=== PATIENT | female | born 1950 | race Caucasian/White ===

== ENCOUNTER → 2016-08-02 | Outpatient (CLI) | payer OTHER, MEDICARE ==
[~2016-08-02] MED LIST: CALC-279 PO; CALC500C70 PO; CHOL100010 PO; CHOL2000 PO; CLR10 PO; FLUO20CA35 PO; FLUO40CA8 PO; FLUT0.15 NAE; LEVO137T3 PO; LRS20 PO; MIRA100T PO; MISCCAP80 PO; MULT-884 PO; NRN800 PO; OMEGCAP2 PO; PRMVC PV; VSC/5 PO; WLLSR/150 PO
--- NOTE | 2016-08-03 10:57 | MAMMOGRAPHY REPORT ---
BILATERAL DIGITAL SCREENING MAMMOGRAM WITH CAD: 08/02/2016 CLINICAL HISTORY: Routine screening. Patient has no complaints. TECHNIQUE: Bilateral CC and MLO views were obtained. Current study was also evaluated with a Comput er Aided Detection (CAD) system. COMPARISON: Comparison is made to exams dated: 07/18/2015 mammogram - [facility], 04/12/2013 mammogram, 05/14/2014 mammogram - [facility], 03/24/2011 mammogram, 2009 mammogram, and 02/13/2009. BREAST COMPOSITION: There are scattered areas of fibroglandular density in both breasts. FINDINGS: The parenchymal pattern is unchanged. No developing mass, architectural distortion or clu ster of suspicious microcalcifications is seen in either breast. IMPRESSION: ACR BI-RADS CATEGORY 2: BENIGN There is no mammographic evidence of malignancy. A 1 year screening mammogram is recommended. The p atient will receive written notification of the results. Approximately 10% of breast cancers are not detected with mammography. A negative mammographic repor t should not delay biopsy if a clinically suggestive mass is present. Margarita Lucero M.D. ay/:08/02/2016 16:09:39 Die Mechanic: Mavis OCONNELL(Allyn)(M), [facility] letter sent: Normal 1/2 BI-RADS Code: ACR BI-RADS Category 2: Benign
== END | disposition home or self-care (01) ==
LOC: C.MAMM 09:46
PROVIDERS: ATTEND Obstetrics & Gynecology
DX: Z12.31 Encounter for screening mammogram for malignant neoplasm of breast (principal)

== ENCOUNTER 2016-12-02 09:50 | Emergency (ER) | payer OTHER, MEDICARE ==
[~2016-12-02] VITALS: Ht 170.2 cm; Wt 78.7 kg
[~2016-12-02 09:50] MED LIST changes: -CALC500C70 PO; -CHOL2000 PO; -FLUO40CA8 PO; -MIRA100T PO
[2016-12-02 10:42] VITALS: Ht 170.2 cm; Wt 78.7 kg
[2016-12-02 10:43] VITALS: O2SAT 96
--- NOTE | 2016-12-02 10:46 | DIAGNOSTIC IMAGING REPORT ---
CHEST ONE VIEW PORTABLE CLINICAL HISTORY: Dizziness, shortness of breath COMPARISON STUDY: 12/03/2015 FINDINGS: The cardiac and mediastinal contours are normal. There is no evidence of focal pulmonary consolidation. There is no evidence of failure. No pleural effusions are visualized.[ There is scattered granulomatous calcifications present. IMPRESSION: No active disease in the chest. Electronically signed by: Miki Cervantes M.D. 12/02/2016 10:45 AM Dictated Date/Time: 12/02/2016 10:45 AM
[2016-12-02] MEDS ORDERED: MIRA100T PO (10:50)
[2016-12-02] MEDS ORDERED: FLUO40CA8 PO (10:50)
[2016-12-02] MEDS ORDERED: CALC500C70 PO (10:50)
[2016-12-02] MEDS ORDERED: CHOL2000 PO (10:50)
[2016-12-02 10:56] LABS: URINE APPEARANCE CLEAR (CLEAR); URINE BILIRUBIN NEG (NEG); URINE COLOR YELLOW; URINE NITRITE NEG (NEG); URINE SPECIFIC GRAVITY 1.013 (1.000-1.030); UROBILINOGEN NEG (NEG)
[2016-12-02 11:04] LABS: MANUAL MICROSCOPIC REQUIRED? NO; REVIEW REQ? NO
[2016-12-02 11:22] LABS: BASO % 0.4 %; BASO ABS # 0.02 K/uL (0-0.2); COMPLETE YES; EOS % 1.3 %; HEMATOCRIT 39.6 % (37-47); IG% 0.2 %; LYMPH % 19.9 %; LYMPH ABS # 1.11 K/uL (1.2-3.4); MEAN CELL VOLUME 90.2 fL (80-100); MEAN CORPUSCULAR HEMOGLOBIN 31.7 pg (25-34); MEAN CORPUSCULAR HGB CONC 35.1 g/dl (32-36); MEAN PLATELET VOLUME 10.2 fL (7.4-10.4); NEUT % 73.2 %; PLATELET COUNT 210 K/uL (130-400); RED BLOOD COUNT 4.39 M/uL (4.2-5.4); WHITE BLOOD COUNT 5.58 K/uL (4.8-10.8)
[2016-12-02 11:29] LABS: ALT/SGPT 26 U/L (12-78); BLOOD UREA NITROGEN 18 mg/dl (7-18); BUN/CREATININE RATIO 16.4 (10-20); CALCIUM 8.9 mg/dl (8.5-10.1); CARBON DIOXIDE 26 mmol/L (21-32); CHLORIDE 105 mmol/L (98-107); GLUCOSE 82 mg/dl (70-99); SODIUM 139 mmol/L (136-145)
[2016-12-02 11:34] LABS: ALB/GLOB RATIO 1.1 (0.9-2); ALKALINE PHOSPHATASE 61 U/L (45-117); AST/SGOT 23 U/L (15-37); CKMB/CK RATIO 1.3 (0-3.0)
[2016-12-02] MEDS ORDERED: ASPIRIN 81 MG CHEW PO STA (12:58)
[2016-12-02 16:23] VITALS: BP 148/92; PULSE 70; TEMP 36.8; O2SAT 97
--- NOTE | 2016-12-02 16:32 | EMERGENCY ROOM VISIT NOTE ---
History Report prepared by Dee Dee: Manjinder Street Under the Supervision of: Dr. Miko Meza M.D. First contact with patient: 10:07 Chief Complaint: SHORTNESS OF BREATH Stated Complaint: DIZZY,SOB DURING WATER WALKING Nursing Triage Summary: Patient states at 8:45 she was in the pool exercising and became SOB and dizzy, "its a hot room with a warm pool". "It feels sore under my breast bone". Left side of face feel numb and left hand shakes. History of Present Illness The patient is a 66 year old female who presents to the Emergency Room with complaints of resolving shortness of breath that began prior to arrival. She rates her pain as a 2/10 in severity. The patient states that she was doing an exercise in a pool when she started to experience dizziness, discomfort in her center chest, and shortness of breath. She reports that the pool and room both felt warm. The patient states that she is still experiencing dyspnea and the discomfort in her chest. 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 The patient states that she has a history of thyroid cancer, clostridium difficile, bowel obstruction, and peritonitis. She reports that her small intestine ruptured due to her adhesions strangling her intestine from her hysterectomy. The patient also reports a history of ileostomy, which she states was reversed, and lymphedema, which she wears compression socks for. She states that she did recently travel from [place] on November 15 and reports that she had the Heimlich maneuver performed on her in [place] 2 weeks ago due to an episode of choking. The patient denies heart history, arm pain, jaw pain, LOC, headache , fevers, chills, diaphoresis, visual changes, neck pain, nausea, vomiting, abdominal pain, back pain, melena, hematochezia, urinary symptoms, numbness, weakness, lymphadenopathy, rash, or other complaints. Source of History: patient Onset: prior to arrival Position: other (global) Symptom Intensity: 2/10 Timing: other (resolving) Associated Symptoms: + chest pain Review of Systems See HPI for pertinent positives and negatives. A total of ten systems were reviewed and were otherwise negative. Past Medical & Surgical Medical Problems: (1) Abdominal adhesions (2) History of thyroid cancer (3) Perforated abdominal viscus (4) Recurrent Clostridium difficile diarrhea (5) SBO (small bowel obstruction) Surgical Problems: (1) History of ileostomy (2) S/P ileostomy (3) S/P small bowel resection Family History Heart disease Hypertension Lung disease Social History Smoking Status: Never Smoker Alcohol Use: none Drug Use: none Marital Status: Housing Status: lives alone Occupation Status: retired Current/Historical Medications Scheduled Baclofen (Baclofen), 20 MG PO TID Bupropion Hcl (Wellbutrin Sr), 150 MG PO BID Calcium/Vitamin D (Os-Diego 500 Plus D), 1 TAB PO DAILY Cholecalciferol (Vitamin D3), 1 CAP PO DAILY Estrogens, Conjugated (Premarin), 1 APPLN PV 3 X WEEKLY Fluoxetine (Prozac), 40 MG PO DAILY Fluticasone Propionate (Nasal) (Flonase Allergy Relief), 1 SPRAY BRITTANI DAILY Gabapentin (Gabapentin), 800 MG PO TID Levothyroxine Sodium (Levothyroxine Sodium), 137 MCG PO DAILY Loratadine (Claritin), 10 MG PO DAILY Mirabegron (Myrbetriq Er), 25 MG PO DAILY Multiple Vitamin (Multi Vitamin Daily), 1 TAB PO DAILY Tenstrike-3 Fatty Acids (Fish Oil), 1,200 MG PO BID Probiotic Product (Probiotic), 1 CAP PO DAILY Allergies Coded Allergies: Codeine (Verified Allergy, Unknown, 12/02/16) Hydromorphone (Unverified Allergy, Unknown, hallucinations, 12/02/16) Meperidine (Verified Allergy, Unknown, 12/02/16) Morphine (Unverified Allergy, Unknown, resp depression, 12/02/16) Physical Exam Vital Signs Date Time Temp Pulse Resp B/P (MAP) Pulse Ox O2 Delivery O2 Flow Rate FiO2 12/02/16 16:23 36.8 70 20 148/92 97 12/02/16 16:23 148/92 12/02/16 14:03 70 20 151/54 97 Room Air 12/02/16 13:16 74 16 145/74 100 Room Air 12/02/16 11:39 71 16 152/79 97 Room Air 12/02/16 10:43 96 Room Air 12/02/16 10:43 96 Room Air 12/02/16 10:02 97 Room Air 12/02/16 09:56 36.8 80 18 145/86 97 Room Air Physical Exam GENERAL: Awake, alert, well-appearing, in no distress HENT: Normocephalic, atraumatic. Oropharynx unremarkable. EYES: Normal conjunctiva. Sclera non-icteric. NECK: Supple. No nuchal rigidity. FROM. No JVD. RESPIRATORY: Clear to auscultation. CARDIAC: Regular rate, normal rhythm. Extremities warm and well perfused. Pulses equal. ABDOMEN: Soft, non-distended. No tenderness to palpation. No rebound or guarding. No masses. RECTAL: Deferred. MUSCULOSKELETAL: Left anterior chest wall tenderness. The back is symmetrical on inspection without obvious abnormality. There is no CVA tenderness to palpation. No joint edema. LOWER EXTREMITIES: Calves are equal size bilaterally and non-tender. No edema. No discoloration. NEURO: Normal sensorium. No sensory or motor deficits noted. SKIN: No rash or jaundice noted. Medical Decision & Procedures ER Provider Diagnostic Interpretation: X-ray: Per my interpretation, radiologist review. CHEST ONE VIEW PORTABLE CLINICAL HISTORY: Dizziness, shortness of breath COMPARISON STUDY: 12/03/2015 FINDINGS: The cardiac and mediastinal contours are normal. There is no evidence of focal pulmonary consolidation. There is no evidence of failure. No pleural effusions are visualized.[ There is scattered granulomatous calcifications present. IMPRESSION: No active disease in the chest. Electronically signed by: Miki Cervantes M.D. 12/02/2016 10:45 AM Dictated Date/Time: 12/02/2016 10:45 AM Laboratory Results 12/02/16 10:35 Red Blood Count 4.39, Mean Corpuscular Volume 90.2, Mean Corpuscular Hemoglobin 31.7, Mean Corpuscular Hemoglobin Concent 35.1, Mean Platelet Volume 10.2, Neutrophils (%) (Auto) 73.2, Lymphocytes (%) (Auto) 19.9, Monocytes (%) (Auto) 5.0, Eosinophils (%) (Auto) 1.3, Basophils (%) (Auto) 0.4, Neutrophils # (Auto) 4.09, Lymphocytes # (Auto) 1.11, Monocytes # (Auto) 0.28, Eosinophils # (Auto) 0.07, Basophils # (Auto) 0.02 12/02/16 10:35 Test 12/02/16 00:00 12/02/16 10:35 12/02/16 10:44 12/02/16 14:00 Urine Color YELLOW Urine Appearance CLEAR (CLEAR) Urine pH 8.0 (4.5-7.5) Urine Specific [place] 1.013 (1.000-1.030) Urine Protein NEG (NEG) Urine Glucose (UA) NEG (NEG) Urine Ketones NEG (NEG) Urine Occult Blood NEG (NEG) Urine Nitrite NEG (NEG) Urine Bilirubin NEG (NEG) Urine Urobilinogen NEG (NEG) Urine Leukocyte Esterase NEG (NEG) White Blood Count 5.58 K/uL (4.8-10.8) Red Blood Count 4.39 M/uL (4.2-5.4) Hemoglobin 13.9 g/dL (12.0-16.0) Hematocrit 39.6 % (37-47) Mean Corpuscular Volume 90.2 fL (80-100) Mean Corpuscular Hemoglobin 31.7 pg (25-34) Mean Corpuscular Hemoglobin Concent 35.1 g/dl (32-36) Platelet Count 210 K/uL (130-400) Mean Platelet Volume 10.2 fL (7.4-10.4) Neutrophils (%) (Auto) 73.2 % Lymphocytes (%) (Auto) 19.9 % Monocytes (%) (Auto) 5.0 % Eosinophils (%) (Auto) 1.3 % Basophils (%) (Auto) 0.4 % Neutrophils # (Auto) 4.09 K/uL (1.4-6.5) Lymphocytes # (Auto) 1.11 K/uL (1.2-3.4) Monocytes # (Auto) 0.28 K/uL (0.11-0.59) Eosinophils # (Auto) 0.07 K/uL (0-0.5) Basophils # (Auto) 0.02 K/uL (0-0.2) RDW Standard Deviation 40.4 fL (36.4-46.3) RDW Coefficient of Variation 12.2 % (11.5-14.5) Immature Granulocyte % (Auto) 0.2 % Immature Granulocyte # (Auto) 0.01 K/uL (0.00-0.02) Anion Gap 8.0 mmol/L (3-11) Est Creatinine Clear Calc Drug Dose 52.9 ml/min Estimated GFR () 59.7 Estimated GFR (Non- 51.5 BUN/Creatinine Ratio 16.4 (10-20) Calcium Level 8.9 mg/dl (8.5-10.1) Total Bilirubin 0.9 mg/dl (0.2-1) Aspartate Amino Transf (AST/SGOT) 23 U/L (15-37) Alanine Aminotransferase (ALT/SGPT) 26 U/L (12-78) Alkaline Phosphatase 61 U/L (45-117) Total Creatine Kinase 71 U/L (26-192) Creatine Kinase MB 0.9 ng/ml (0.5-3.6) Creatine Kinase MB Ratio 1.3 (0-3.0) Total Protein 7.1 gm/dl (6.4-8.2) Albumin 3.7 gm/dl (3.4-5.0) Globulin 3.4 gm/dl (2.5-4.0) Albumin/Globulin Ratio 1.1 (0.9-2) Bedside D-Dimer 151 ng/mlFEU (0-450) Troponin I < 0.015 ng/ml (0-0.045) Laboratory results reviewed by me Medications Administered Medications (Trade) Dose Ordered Sig/Sanjeev Route Start Time Stop Time Status Last Admin Dose Admin Aspirin (Aspirin Chew) 324 mg NOW STAT PO 12/02/16 12:58 12/02/16 12:59 DC 12/02/16 13:02 324 MG ECG Indication: SOB/dyspnea Rate (beats per minute): 74 Rhythm: normal sinus Findings: no acute ischemic change, no ectopy ED Course 1008: The patient was evaluated in room A03. A complete history and physical exam was performed. 1239: I reevaluated the patient and she is resting comfortably. 1258: Aspirin 324 mg PO. 1555: The patient passed a stress test. Discussed the case with Dr. Devine. 1615: Patient reassessed. She is asymptomatic. Discharge instructions outlined. Medical Decision Medication Reconciliation: I attest that I have personally reviewed the patient' s current medication list Blood pressure screening: Patient was found to have an elevated blood pressure and was referred to their primary doctor for recheck and further treatment. Triage Nursing notes reviewed. The patient's presentation and history were concerning for shortness of breath and chest symptoms. Etiologies such as cardiac ischemia, aortic dissection, pulmonary embolism, pneumonia, pneumothorax, musculoskeletal, infections, gastrointestinal, as well as others were entertained. The patient was evaluated. Clinically she was doing well. Her ECG was nonischemic. The patient's CBC, chemistry panel, urinalysis, cardiac markers, d -dimer, and LFTs were unremarkable. The patient's chest imaging was negative. I discussed the case with cardiology, Dr. Devine. A second troponin was done and was negative. The patient was taken to stress testing and she passed this without any issues. The patient was reassessed. She was asymptomatic. I discussed conservative management and close outpatient follow-up with her. The patient and significant other were in agreement. The patient was discharged in stable condition. By the evaluation outlined above other emergent etiologies such as those listed in the differential, as well as others, were deemed relatively unlikely. The patient was educated about the findings as listed above. All questions were answered and the patient was pleased with the treatment. Return instructions were outlined and the patient was discharged in stable condition. The patient was referred to her PCP for follow-up for a recheck of the current condition. Impression Primary Impression: Substernal chest pain Additional Impression: Shortness of breath Scribe Attestation The scribe's documentation has been prepared under my direction and personally reviewed by me in its entirety. I confirm that the note above accurately reflects all work, treatment, procedures, and medical decision making performed by me. Departure Information Dispostion Home / Self-Care Referrals Saranya Anderson PA-C (PCP) Patient Instructions My [facility] Problem Qualifiers
--- NOTE | 2016-12-02 18:06 | EXERCISE STRESS ECHO ---
*NOTICE TO RECEIVING CONSTITUTION PARTY AGENCY This information is strictly Confidential and protected under [place] law. [place] law prohibits you from making any further disclosure of this information unless further disclosure is expressly permitted by the written consent of the person to whom it pertains or is authorized by law. A general authorization for the release of medical or other information is not sufficient for this purpose. Hospital accepts no responsibility if the information is made available to any other person, INCLUDING THE PATIENT. Interpretation Summary * Name: ALCON Jordan Study Date: 12/02/2016 02:11 PM BP: 157/75 mmHg * Patient Location: [facility] HR: 81 * : 1950 (M/d/yyyy) Gender: Female Height: 67 in * Age: 66 yrs Ethnicity: CA Weight: 174 lb * Ordering Physician: Miko Meza * Referring Physician: Self, Referred * Performed By: Madeline Jaeger RDCS * * Reason For Study: Chest pain * BSA: 1.9 m2 * -- Conclusions -- * Stress Echo: * 1. Negative stress echo for ischemia at 90 % MPHR. * 2. Negative exercise ECG for ischemia at 90 % MPHR. * 3. Appropriate blood pressure response to exercise. * 4. No arrhythmia. * 5. Study terminated due to target heart rate achieved. No chest pain reported. * 6. Good exercise tolerance. * Echo: * 1. Normal left ventricular size and systolic function. EF 55-60 %. No regional wall motion abnormalities. No left ventricular hypertrophy. Type 1 diastolic dysfunction. * 2. No significant valvular abnormalities. * 3. Normal estimated right ventricular systolic pressure; 27 mmHg. Procedure Details * ECHOEX, CPT #[id number] * ECHO DOPPLER, CPT #[id number] * ECHO COLOR FLOW, CPT #[id number] Left Ventricle * The left ventricle is normal in size. * There is normal left ventricular wall thickness. * Left ventricular systolic function is normal. * The left ventricular ejection fraction increases normally with stress. The left ventricular end-systolic cavity size reduces post-stress (normal response). The left ventricular wall motion with stress is normal. * Resting wall motion: Normal. Stress wall motion: Appropriate increase in Left ventricular systolic function and decrease in cavity size. No stress induced segmental wall motion abnormalities. Right Ventricle * The right ventricle is normal in size and function. * The right ventricular systolic function is normal as assessed by tricuspid annular plane systolic excursion (TAPSE) (normal >1.5 cm). Atria * The left atrial size is normal. * Right atrial size is normal. * There is no evidence of atrial septal defect, but resolution does not allow assessment for a patent foramen ovale. Mitral Valve * The mitral valve leaflets appear normal. There is no evidence of stenosis, fluttering, or prolapse. * There is trace mitral regurgitation. Tricuspid Valve * The tricuspid valve is not well visualized, but is grossly normal. * There is no tricuspid stenosis. * There is trace tricuspid regurgitation. Aortic Valve * The aortic valve is normal in structure and function. * The aortic valve is trileaflet. * No hemodynamically significant valvular aortic stenosis. * No aortic regurgitation is present. Pulmonic Valve * The pulmonic valve is not well seen, but is grossly normal. * Trace pulmonic valvular regurgitation. Great Vessels * The aortic root is normal size. * Ascending aorta of normal dimension * Normal pulmonary venous flow pattern. Pericardium * There is no pericardial effusion. Stress Parameters * NSR at 72 bpm. * Stress ECG: No ST changes. No arrhythmias. * No arrhythmia were noted with stress. * The stress portion of this study was personally supervised by the undersigned interpreting physician. * Rest heart rate was '81' BPM. * Rest blood pressure was '157/75' * Maximum heart rate achieved was 137 bpm. * Maximum heart rate was 90 % of maximum age-predicted heart rate. * Maximum blood pressure was '170/70' * Total exercise time was '9:00' * Maximum exercise MET level achieved was '10.10' METS * Maximum treadmill speed was '3.40' miles per hour. * Maximum treadmill elevation was '14.00'% grade. * Exercise was terminated due to 'achieving target heart rate' * Normal blood pressure response to exercise. Left Ventricular Diastolic Function * Grade I diastolic dysfunction, (abnormal relaxation pattern). MMode 2D Measurements and Calculations IVSd 0.89 cm LVIDd 4.4 cm LVIDs 3.1 cm LVPWd 0.88 cm IVS/LVPW 1.0 FS 29.1 % EDV(Teich) 89.4 ml ESV(Teich) 39.3 ml EF(Teich) 56.0 % EDV(cubed) 87.3 ml ESV(cubed) 31.2 ml EF(cubed) 64.3 % LV mass(C)d 127.1 grams LV mass(C)dI 66.7 grams/m\S\2 SV(Teich) 50.1 ml SI(Teich) 26.3 ml/m\S\2 SV(cubed) 56.1 ml SI(cubed) 29.4 ml/m\S\2 Ao root diam 3.3 cm Ao root area 8.6 cm\S\2 ACS 1.6 cm LA dimension 3.4 cm asc Aorta Diam 3.0 cm LA/Ao 1.0 LVOT diam 2.0 cm LVOT area 3.0 cm\S\2 LVAd ap4 30.3 cm\S\2 LVLd ap4 8.4 cm EDV(MOD-sp4) 92.0 ml EDV(sp4-el) 93.4 ml LVAs ap4 18.4 cm\S\2 LVLs ap4 7.2 cm ESV(MOD-sp4) 39.5 ml ESV(sp4-el) 40.2 ml EF(MOD-sp4) 57.0 % EF(sp4-el) 56.9 % LVAd ap2 28.0 cm\S\2 LVLd ap2 8.0 cm EDV(MOD-sp2) 84.0 ml EDV(sp2-el) 83.5 ml LVAs ap2 17.1 cm\S\2 LVLs ap2 6.7 cm ESV(MOD-sp2) 37.8 ml ESV(sp2-el) 37.1 ml EF(MOD-sp2) 55.0 % EF(sp2-el) 55.6 % LVLd %diff -4.71 % EDV(MOD-bp) 90.1 ml LVLs %diff -6.82 % ESV(MOD-bp) 40.0 ml EF(MOD-bp) 55.5 % SV(MOD-sp4) 52.4 ml SI(MOD-sp4) 27.5 ml/m\S\2 SV(MOD-sp2) 46.2 ml SI(MOD-sp2) 24.2 ml/m\S\2 SV(MOD-bp) 50.0 ml SI(MOD-bp) 26.3 ml/m\S\2 SV(sp4-el) 53.2 ml SI(sp4-el) 27.9 ml/m\S\2 SV(sp2-el) 46.4 ml SI(sp2-el) 24.4 ml/m\S\2 Doppler Measurements and Calculations MV E max trisha 89.7 cm/sec MV A max trisha 103.8 cm/sec MV E/A 0.86 MV dec time 0.24 sec Ao V2 max 138.1 cm/sec Ao max PG 7.6 mmHg Ao max PG (full) 3.8 mmHg INESSA(V,A) 2.1 cm\S\2 INESSA(V,D) 2.1 cm\S\2 LV V1 max PG 3.8 mmHg LV V1 max 97.5 cm/sec PA V2 max 101.8 cm/sec PA max PG 4.1 mmHg PA acc slope 506.5 cm/sec\S\2 PA acc time 0.12 sec PI max trisha 164.2 cm/sec PI max PG 10.8 mmHg PI dec slope 161.0 cm/sec\S\2 PI P1/2t 298.8 msec TR max trisha 246.5 cm/sec RVSP(TR) 27.3 mmHg RAP systole 3.0 mmHg PA pr(Accel) 25.1 mmHg
== END 2016-12-02 16:24 | disposition home or self-care (01) ==
LOC: C.EDB 09:52 → C.EDA 16:24
DX: R07.2 Precordial pain (principal); R06.02 Shortness of breath; K56.60 Unspecified intestinal obstruction; Z85.850 Personal history of malignant neoplasm of thyroid; Z86.19 Personal history of other infectious and parasitic diseases; Z93.2 Ileostomy status; Z79.899 Other long term (current) drug therapy; Z88.5 Allergy status to narcotic agent; Z88.8 Allergy status to other drugs, medicaments and biological substances; Z82.49 Family history of ischemic heart disease and other diseases of the circulatory system

== ENCOUNTER → 2017-01-17 | Outpatient (CLI) | payer OTHER, MEDICARE ==
[~2017-01-17] MED LIST changes: -CALC-279 PO; +CALC500C70 PO; -CHOL100010 PO; +CHOL2000 PO; -FLUO20CA35 PO; +FLUO40CA8 PO; +MIRA100T PO; -VSC/5 PO
--- NOTE | 2017-01-22 07:57 | CODING QUERY MEDICAL NECESSITY ---
CQSUPPORTING DIAGNOSIS NEEDED A supporting diagnosis is required for the test/procedure performed on this patient in order for us to be reimbursed by the patient's insurance. Please provide a supporting diagnosis for the following test/procedure listed below next to the test name along with your signature. *If there is no additional diagnosis for this patient that would support the following test/procedure please document that below next to the test/procedure. Test(s)/Procedure(s) that require a supporting diagnosis: NIRU 01/17/17 CDIFF TOXIN B GENE Provider Signature: Date: Thank you Isabel Rios Health Information Management Once completed, please kindly fax back to [phone] For questions please call [phone]
== END | disposition home or self-care (01) ==
LOC: C.LAB 11:33
PROVIDERS: ATTEND Internal Medicine Gastroenterology
DX: R19.7 Diarrhea, unspecified (principal); R10.9 Unspecified abdominal pain

== ENCOUNTER → 2017-02-10 | Outpatient (CLI) | payer OTHER, MEDICARE ==
[~2017-02-10] MED LIST changes: +OPTIRAY 320 IV PRN
--- NOTE | 2017-02-10 09:25 | DIAGNOSTIC IMAGING REPORT ---
CT SCAN OF THE ABDOMEN AND PELVIS WITH IV CONTRAST CLINICAL HISTORY: Generalized abdominal pain. Diarrhea. COMPARISON STUDY: Abdominal CT dated 12/03/2015. TECHNIQUE: Following the IV administration of 103 cc of Optiray 320, CT scan of the abdomen and pelvis is performed from the lung bases to the proximal femora. Images are reviewed in the axial, sagittal, and coronal planes. IV contrast was administered without complication. A dose lowering technique was utilized adhering to the principles of ALARA. CT DOSE: 685.03 mGycm FINDINGS: Lung bases: The heart is normal in size and without pericardial effusion. Numerous calcified granulomas are present at the lung bases. Letter atelectasis versus scarring is seen in the right middle lobe. No airspace consolidation or pleural effusion is identified. There is a small hiatal hernia. Liver: The contrast-enhanced liver is normal in size, contour, and attenuation. There is no intrahepatic biliary ductal dilatation. The hepatic veins and portal veins are patent. There are least 4 indeterminant hepatic hypodensities measure up to 10 mm. These likely resent cysts but cannot be definitely characterized and have not significantly changed from 12/03/2015 Gallbladder: Unremarkable. Spleen: Normal in size and attenuation. There are scattered calcified splenic granulomas. 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 Pancreas: Unremarkable. Adrenal glands: Unremarkable. Kidneys: The contrast enhanced kidneys are normal in size and without hydronephrosis. The kidneys enhance symmetrically. An 8 mm cyst is noted in the interpolar left kidney. Abdominal vasculature: The abdominal aorta is normal in course and caliber noting moderate atherosclerotic calcification. Bowel: There are postoperative changes from right colon resection with ileocolic anastomosis. No bowel obstruction is seen. There is moderate colonic fecal retention. The appendix is surgically absent. Peritoneum: There is no intraperitoneal free air or abdominal ascites. A midline surgical scar is noted. There is a heterogeneously enhancing mass lesion in the ventral left pelvis seen on axial image #313. This is located along the omentum adjacent to the sigmoid colon and measures 6.1 x 2.7 x 3.9 cm. Lymphadenopathy: None. Pelvic viscera: The bladder is normal as visualized. The uterus is surgically absent. No adnexal lesion is seen. Skeletal structures: The skeletal structures are osteopenic. Mild lumbosacral spondylosis and scoliosis are observed. No lytic or blastic lesions are seen. IMPRESSION: 1. There are no acute infectious or inflammatory findings in the abdomen or pelvis. 2. There is a 6.1 cm heterogeneously enhancing mass lesion in the left ventral pelvis. This is likely omental in location and is adjacent to the sigmoid colon. This is pathologically indeterminant with neoplasm the diagnosis of exclusion. Top differential considerations include a GIST or possibly a desmoid tumor. Surgical consultation is advised. 3. There is no evidence of metastatic disease in the abdomen or pelvis. 4. There are postoperative changes from right colon resection. No bowel obstruction is seen. 5. Moderate fecal retention is seen throughout the remaining colon. 6. Additional findings as above. Electronically signed by: Scott Kim M.D. 02/10/2017 9:24 AM Dictated Date/Time: 02/10/2017 9:01 AM
== END | disposition home or self-care (01) ==
LOC: C.CTS 08:37
PROVIDERS: ATTEND Internal Medicine Gastroenterology
DX: R19.7 Diarrhea, unspecified (principal); D12.6 Benign neoplasm of colon, unspecified; R10.30 Lower abdominal pain, unspecified; R19.09 Other intra-abdominal and pelvic swelling, mass and lump

== ENCOUNTER → 2017-04-11 | Outpatient (CLI) | payer OTHER, MEDICARE ==
[~2017-04-11] MED LIST changes: -OPTIRAY 320 IV PRN
--- NOTE | 2017-04-11 16:43 | DIAGNOSTIC IMAGING REPORT ---
LUMBAR SPINE W/O CONTRAST HISTORY: Pain. Radiculopathy. LUMBOSACRAL RADICULOPATHY TECHNIQUE: Multiplanar multisequence MRI of the lumbar spine was performed without the use of contrast. COMPARISON: 06/10/2014 FINDINGS: For the purpose of the report the L5-S1 disc space will be located on axial image 23 of 26. Mild generalized degenerative disc changes throughout. This is most prominent at L3-L4 and is minimally progressive compared to the prior study. L1-L2: No significant central canal or neural foraminal narrowing. L2-L3: No significant central canal or neural foraminal narrowing. L3-L4: Mild broad-based disc bulging disc. Minimal impact anterior thecal sac. Mild narrowing of the neuroforamina bilaterally. L4-L5: Minimal broad-based disc bulge. Minimal impact left anterior thecal sac. Minimal narrowing neuroforamina bilaterally. L5-S1: Moderate degenerative change posterior facets. No major compromise of the spinal canal and neural foramina. IMPRESSION: 1. Mild degenerative disc change slightly progressive from the prior study of 2014. 2. Broad-based bulging disc L3-L4 with mild narrowing of the neuroforamina bilaterally. This is progressive from the prior exam. 3. Minimal broad-based disc bulge L4-L5 with minimal narrowing of the neuroforamina bilaterally. This is slightly progressive from the prior exam. The above report was generated using voice recognition software. It may contain grammatical, syntax or spelling errors. Electronically signed by: Hay Harrison M.D. 04/11/2017 4:41 PM Dictated Date/Time: 04/11/2017 4:36 PM
== END | disposition home or self-care (01) ==
LOC: C.MRIBC 15:38
PROVIDERS: ATTEND Psychiatry & Neurology Neurology
DX: M54.17 Radiculopathy, lumbosacral region (principal); M51.37 Other intervertebral disc degeneration, lumbosacral region; M51.26 Other intervertebral disc displacement, lumbar region

== ENCOUNTER → 2017-04-13 | Outpatient (CLI) | payer OTHER, MEDICARE ==
[2017-04-13 11:33] LABS: CHOLESTEROL/HDL RATIO 1.9
== END | disposition home or self-care (01) ==
LOC: C.LABBC 07:37
PROVIDERS: ATTEND Nurse Practitioner Adult Health
DX: E55.9 Vitamin D deficiency, unspecified (principal); E78.1 Pure hyperglyceridemia

== ENCOUNTER → 2017-05-04 | Outpatient (CLI) | payer OTHER, MEDICARE ==
--- NOTE | 2017-05-06 13:46 | POLYSOMNOGRAPH REPORT ---
CLINICAL DATA: 66-year-old female with BMI of 28.8 referred by Margarita Gan for evaluation of fatigue, snoring, and fragmented sleep architecture. On the evening of 05/04/2017, a home sleep apnea test was performed using a Mevio type 3 monitor. RECORDING RESULTS: Total recording time was 10 hours. The patient's estimated sleep time and patient monitoring time was 7.7 hours. RESPIRATORY DATA: Mild sleep apnea was documented. The KIRBY was 6.2. There were 37 obstructive, 5 mixed, and 3 central apneic episodes. There were 3 hypopneic episodes. The longest respiratory event was 44 seconds. OXIMETRY DATA: Nocturnal hypoxemia was seen. Oxygen sloane was 82%. Mean saturation was 91%. Time below 89% was 92 minutes. EKG: Heart rates ranged from 55 to 66 beats per minute. SNORING DATA: Snoring was recorded throughout the night. S IRON WORKER'S COMMENTS: Hypopneas and apneas were seen primarily while the patient was on her back. There was a 2 1/2 hour period in the middle of the night where the oximeter did not appear to be reading accurately and then it appeared to correct itself. IMPRESSION: Mild sleep apnea/hypopnea with an KIRBY of 6.2. RECOMMENDATIONS: The patient may benefit from weight loss, use of an oral appliance, a repeat sleep study with CPAP, or sleep medicine consultation. Clinical correlation is needed. ARBEN
== END | disposition home or self-care (01) ==
LOC: C.NEUR 08:28
PROVIDERS: ATTEND Nurse Practitioner Adult Health
DX: R53.83 Other fatigue (principal)

== ENCOUNTER → 2017-05-09 | Outpatient (CLI) | payer OTHER, MEDICARE ==
[2017-05-09 17:22] LABS: BLOOD UREA NITROGEN 20 mg/dl (7-18); BUN/CREATININE RATIO 18.8 (10-20); CALCIUM 8.8 mg/dl (8.5-10.1); CARBON DIOXIDE 29 mmol/L (21-32); CHLORIDE 105 mmol/L (98-107); CREATININE 1.05 mg/dl (0.60-1.20); GLUCOSE 95 mg/dl (70-99); POTASSIUM 4.2 mmol/L (3.5-5.1); SODIUM 138 mmol/L (136-145)
== END | disposition home or self-care (01) ==
LOC: C.LABBC 15:15
PROVIDERS: ATTEND Nurse Practitioner Adult Health
DX: I10 Essential (primary) hypertension (principal)

== ENCOUNTER → 2017-05-12 | Outpatient (CLI) | payer OTHER, MEDICARE | END | disposition home or self-care (01) | LOC: C.MAMM 07:54 | PROVIDERS: ATTEND Nurse Practitioner Adult Health | DX: E55.9 Vitamin D deficiency, unspecified (principal); M85.851 Other specified disorders of bone density and structure, right thigh; M85.852 Other specified disorders of bone density and structure, left thigh ==

== ENCOUNTER → 2017-06-16 | Outpatient (CLI) | payer OTHER, MEDICARE | END | disposition home or self-care (01) | LOC: C.LABSPEC 17:19 → C.PATHSPEC 17:37 | PROVIDERS: ATTEND Urology | DX: R31.0 Gross hematuria (principal); R39.15 Urgency of urination ==

== ENCOUNTER → 2017-06-30 | Outpatient (CLI) | payer OTHER, MEDICARE ==
[~2017-06-30] MED LIST changes: +OPTIRAY 320 IV PRN
[2017-06-30 10:29] LABS: ALBUMIN 3.8 gm/dl (3.4-5.0); ALT/SGPT 22 U/L (12-78); BLOOD UREA NITROGEN 18 mg/dl (7-18); CALCIUM 8.9 mg/dl (8.5-10.1); CARBON DIOXIDE 30 mmol/L (21-32); CREATININE 1.18 mg/dl (0.60-1.20); GLUCOSE 85 mg/dl (70-99); POTASSIUM 4.5 mmol/L (3.5-5.1); SODIUM 137 mmol/L (136-145)
[2017-06-30 10:32] LABS: ALKALINE PHOSPHATASE 53 U/L (45-117); AST/SGOT 19 U/L (15-37); TOTAL PROTEIN 7.1 gm/dl (6.4-8.2)
--- NOTE | 2017-06-30 11:23 | DIAGNOSTIC IMAGING REPORT ---
ABD/PELVIS COMBO CT DOSE: 1473.10 mGycm HISTORY: Hematuria R31.0 Gross qarczhqdaB57.15 Urinary [id number] TECHNIQUE: Multiaxial CT images of the abdomen and pelvis were performed pre and post intravenous contrast enhancement. A dose lowering technique was utilized adhering to the principles of ALARA. COMPARISON STUDY: CT 02/10/2017, 12/03/2015. FINDINGS: The unenhanced study shows no abnormal calcifications of the urinary tracts. Postoperative changes to the bowel which have been described previously are again noted. Soft tissue density ventral aspect left soft tissue pelvis is again noted and appears similar. The enhanced component of the study demonstrates a small hepatic cyst which has been described previously. Also a small left renal cyst also unchanged. Kidneys otherwise enhance uniformly. Three-dimensional evaluation of the urinary tracts shows no filling defects within the renal collecting systems. Ureters normal in course and caliber. Bladder appears to be unremarkable. No significant portia pathology. IMPRESSION: 1. No abnormality by CT criteria of the urinary tracts. 2. Stable postoperative changes which have been described previously. 3. Stable heterogeneous mass lesion left ventral pelvis unchanged from [address] studies. The above report was generated using voice recognition software. It may contain grammatical, syntax or spelling errors. Electronically signed by: Hay Harrison M.D. 06/30/2017 11:22 AM Dictated Date/Time: 06/30/2017 11:00 AM
== END | disposition home or self-care (01) ==
LOC: C.CTS 09:36
PROVIDERS: ATTEND Urology
DX: R31.0 Gross hematuria (principal); R39.15 Urgency of urination

== ENCOUNTER → 2017-08-04 | Outpatient (CLI) | payer OTHER, MEDICARE ==
[~2017-08-04] VITALS: Ht 167.6 cm; Wt 80.5 kg
[~2017-08-04] MED LIST changes: -OPTIRAY 320 IV PRN
[2017-08-04 16:08] VITALS: BP 132/74; PULSE 87; Ht 167.6 cm; Wt 80.5 kg
== END | disposition home or self-care (01) ==
LOC: C.NEUR 14:53
PROVIDERS: ATTEND Internal Medicine Pulmonary Disease
DX: G47.33 Obstructive sleep apnea (adult) (pediatric) (principal)

== ENCOUNTER → 2017-09-05 | Outpatient (CLI) | payer OTHER, MEDICARE ==
--- NOTE | 2017-09-06 07:47 | MAMMOGRAPHY REPORT ---
BILATERAL DIGITAL SCREENING MAMMOGRAM TOMOSYNTHESIS WITH CAD: 09/05/2017 CLINICAL HISTORY: Routine screening. Patient has no complaints. TECHNIQUE: Breast tomosynthesis in addition to standard 2D mammography was performed. Current study was also evaluated with a Computer Aided Detection (CAD) system. COMPARISON: Comparison is made to exams dated: 08/02/2016 mammogram, 07/18/2015 mammogram, 05/14/2014 mammogram - [facility], 04/12/2013 mammogram, 03/24/2011 mammogram, and 01/22/2010 lisa mogram. BREAST COMPOSITION: There are scattered areas of fibroglandular density in both breasts. FINDINGS: A linear scar marker overlies the anterior inferior left breast. The parenchymal pattern i s similar to prior mammograms. No developing mass, architectural distortion or cluster of suspicious microcalcifications is seen. IMPRESSION: ACR BI-RADS CATEGORY 2: BENIGN There is no mammographic evidence of malignancy. A 1 year screening mammogram is recommended. The pa tient will receive written notification of the results. Approximately 10% of breast cancers are not detected with mammography. A negative mammographic report should not delay biopsy if a clinically suggestive mass is present. Margarita Lucero M.D. ay/:09/05/2017 15:55:46 Finance Officer: Rosita OCONNELL(Allyn)(Nila)(BD), [facility] letter sent: Normal 1/2 BI-RADS Code: ACR BI-RADS Category 2: Benign
== END | disposition home or self-care (01) ==
LOC: C.MAMM 14:49
PROVIDERS: ATTEND Nurse Practitioner Adult Health
DX: Z12.31 Encounter for screening mammogram for malignant neoplasm of breast (principal)

== ENCOUNTER → 2017-09-29 | Outpatient (CLI) | payer OTHER, MEDICARE ==
[~2017-09-29] VITALS: Ht 167.6 cm; Wt 78.3 kg
[2017-09-29 14:54] VITALS: BP 134/80; PULSE 134; Ht 167.6 cm; Wt 78.3 kg
== END | disposition home or self-care (01) ==
LOC: C.NEUR 13:56
PROVIDERS: ATTEND Physician Assistant
DX: G47.33 Obstructive sleep apnea (adult) (pediatric) (principal)

== ENCOUNTER → 2017-10-10 | Outpatient (CLI) | payer OTHER, MEDICARE | END | disposition home or self-care (01) | LOC: C.LABBC 12:57 | PROVIDERS: ATTEND Nurse Practitioner Adult Health | DX: E03.9 Hypothyroidism, unspecified (principal) ==

== ENCOUNTER 2023-05-27 09:47 | Inpatient (IN) ==
--- NOTE | 2023-05-27 10:06 | ED Triage Note ---
Date of Service May 27, 2023 Provider in Triage Author: Rudolph Murry History of Present Illness This patient was briefly evaluated while in triage. An abbreviated physical exam was performed. This patient is a 72-year-old Female who presents to the ED for evaluation of vomiting. Notes blockage in intestines. History of similar. Not able to eat since tuesday. Vomiting now. No abd pain today but have had last few days. Has required admissions previously for similar. Notes usually can clear on own but this one persists. Physical Exam GENERAL: 72 year old female. In no acute distress. SKIN: No lesions or rashes. HEART: Regular rate and rhythm. LUNGS: Clear to auscultation. ABDOMEN: Bowel sounds hyperactive. No guarding or rigidity. No tenderness of palpation. NEURO: Alert and oriented. No deficits. MUSCULOSKELETAL: No deformities to inspection of the extremities. PSYCH: Patient is pleasant and answers all questions appropriately. Initial orders for labs and / or imaging were placed and patient was placed in exam room for further assessment.
[2023-05-27] MEDS ORDERED: SODIUM CHLORIDE 0.9% 1,000 ML IV ONE (10:34)
[2023-05-27] MEDS ORDERED: ONDANSETRON INJ 2 MG/ML 2 ML VIAL IV STA (10:34)
--- NOTE | 2023-05-27 10:38 | Emergency Department Note ---
Impression & Plan SBO (small bowel obstruction) ADMIT ED Provider Note HPI: History obtained from patient. The patient is a 72-year-old female with surgical history of hysterectomy, partial small bowel resection in 2009 at the [facility], subsequent recurrent small bowel obstructions, presents the emergency department with a chief complaint of nausea and vomiting for the past 2 days. Patient states that this feels similar to small bowel obstructions she has had in the past. Patient denies any current abdominal pain but states she has had intermittent issues with abdominal pain over the past 2 days. On arrival here to the ED, the patient is hemodynamically stable, she is in no acute distress on my initial assessment. ROS: - Per HPI Differential Diagnosis: Small bowel obstruction, viral gastroenteritis, acute colitis, diverticulitis flare, acute cholecystitis, amongst other potential pathologies. *Outpatient medications and allergy history reviewed. PE: General: Alert HEENT: Normocephalic, trachea midline Eyes: Extraocular eye movement is intact, no scleral erythema Pulmonary: Clear to auscultation bilaterally, no wheezing Cardio: Regular rate and rhythm GI: Abdomen is soft to palpation, there is mild tenderness and distention with palpation without any guarding or rigidity : No suprapubic tenderness MSK: No evidence of trauma or malformation of the extremities, no edema Skin: No evidence of rash Neuro: Alert, no focal deficits Psychiatric: Cooperative INDEPENDENT INTERPRETATIONS: inventory control associate: (As interpreted by myself): - An order was placed for continuous cardiac monitoring - Patient was noted to be in sinus rhythm with a rate of 80 Interventions provided in ED: -IV fluid bolus, IV Zofran Medical Decision Making: Shortly after the patient arrived IV was established and lab work obtained, patient was placed on adding machine operator. Lab work shows a mild leukopenia at 4.75, hemoglobin is normal, platelet count is normal, CMP shows a mild hyponatremia 135, acute kidney injury with creatinine at 1.57, BUN is slightly elevated at 28, patient was given IV fluid bolus in the ED for this. Urinalysis does not show any evidence of infection, there is trace ketones and evidence of contamination. Patient denies any recent dysuria. CT imaging of the abdomen pelvis shows evidence of a high-grade small bowel obstruction. There is mention of gas within the bladder lumen however patient did recently have a cystoscopy. She denies any dysuria. Urinalysis does not show evidence of infection. NG tube was ordered, patient has not had any vomiting since she has been here in the ED and on my reassessment she states that she feels improved from previous. Given CT imaging findings I feel she will require admission, NG tube placement, and surgical consultation on the floor. I discussed the case with the on-call hospitalist, Dr. Mauricio, and the patient was placed for admission in stable condition. Consultants/Discussions held with other healthcare providers: -Hospitalist, Dr. Mauricio Disposition discussion held by myself with: -Patient Diagnosis: 1. Small bowel obstruction, acute 2. Acute kidney injury 3. Ketonuria, acute 4. Hyponatremia, acute, mild 5. Elevated BUN Disposition: Admission Hay Cooley DO Emergency Medicine Past Med/Surg History Medical History Allergic rhinitis Anemia Chronic depression Degenerative disc disease Depression Essential (primary) hypertension High frequency hearing loss of both ears History of thyroid cancer History of thyroid cancer Hormone replacement therapy (postmenopausal) Hx SBO Hypertension Hypothyroidism Lymphedema Mild sleep apnea Osteoarthritis Rupture of small intestine Trigeminal neuralgia Trigeminal neuralgia of right side of face Vitamin D deficiency Surgical History H/O ileostomy H/O left breast biopsy History of anesthesia reaction History of appendectomy History of bilateral tubal ligation History of bladder surgery History of bowel resection History of carpal tunnel release History of cataract surgery History of colonoscopy History of dilatation and curettage History of endometrial ablation History of parathyroidectomy History of thyroidectomy, total History of toe surgery History of tooth extraction History of total abdominal hysterectomy and bilateral salpingo-oophorectomy S/P epidural steroid injection S/P ileostomy S/P small bowel resection S/P thyroid biopsy Family History Grandfather Family hx of colon cancer Family/Other Family hx of colon cancer Denies family history of Ovarian cancer Prostate cancer Myocardial infarction Breast cancer Social History Smoking Status: Never smoker Second Hand Exposure: Yes (FATHER SMOKED, A CHILD ); Do You Dip or Chew Tobacco: No; Hx Alcohol Use: No Hx Substance Use: No Preferred Language: Luxembourgish Communication Ability: Effective Visual Impairment: No Limitations Hearing Ability: Normal [employer] Salesperson Required: No Beliefs That Will Affect Care: None marital status: Current Living Situation: Spouse current occupational status: employed and retired current occupation: 3 shifts/week at [employer] [facility] How many Children do You have: 2 Feels Safe at Home: Yes Childhood Exposure to Second-Hand Smoke: Yes Diet: regular caffeine: No during the past year weight has: increased > 10 lbs Dental Care, Regularly: Yes Physical Activity Frequency: 3-4 Times per Week Seatbelt Use: always Sunscreen Use: No Assistive Devices: Glasses Allergies Allergies Allergy/AdvReac Type Severity Reaction Status Date / Time codeine Allergy Severe Fainting Verified 02/14/23 14:27 morphine Allergy Severe resp Verified 02/14/23 14:27 depression animal dander Allergy Intermediate CONGESTION, Verified 02/14/23 14:27 RESP ISSUES house dust mite Allergy Intermediate CONGESTION, Verified 02/14/23 14:27 RESP ISSUES meperidine Allergy Intermediate Vomiting Verified 02/14/23 14:27 pineapple Allergy Intermediate CARRASQUILLO LIPS Verified 02/14/23 14:27 AND FINGERS hydromorphone AdvReac Intermediate hallucinati Verified 02/14/23 14:27 ons Grass Allergy Intermediate CONGESTION, Uncoded 02/14/23 14:27 RESP ISSUES Mold Allergy Intermediate CONGESTION, Uncoded 02/14/23 14:27 RESP ISSUES Trees Allergy Intermediate CONGESTION, Uncoded 02/14/23 14:27 RESP ISSUES Home Meds Home Medications Medication Instructions Recorded Confirmed [id number] 1 tab PO HS 02/16/18 02/14/23 tablet (Multivitamin 50 Plus tablet) acetaminophen 500 mg tablet 500 mg PO Q6H PRN Pain 12/04/18 02/14/23 (Tylenol Extra Strength) cholecalciferol (vitamin D3) 50 2,000 unit PO QAM 01/11/19 02/14/23 mcg (2,000 unit) capsule (Vitamin D3) calcipotriene 0.005 % topical cream 1 applic topical DAILY 08/14/21 02/14/23 omega 4-awx-eig-fish oil 1,200 mg 1 cap PO DAILY 08/14/21 02/14/23 (144 mg-216 mg) capsule (Fish Oil) betamethasone dipropionate 0.05 % 1 applic topical DAILY Skin 01/05/22 02/14/23 topical cream Irritation Previous Rx's Medication Instructions Recorded clotrimazole-betamethasone 1 1 applic topical .qhs #45 grams 05/12/22 %-0.05 % topical cream fluoxetine 40 mg capsule See Rx Instructions .Route 06/21/22 .COMPLEX #90 caps lisinopril 20 mg tablet See Rx Instructions .Route 09/09/22 .COMPLEX #90 tabs alendronate 70 mg tablet (Fosamax) 70 mg PO .weekly #12 tabs 11/15/22 azelastine 137 mcg (0.1 %) nasal 1 spray intranasal BID #3 BTLS 01/06/23 spray aerosol baclofen 20 mg tablet 20 mg PO TID 90 days #270 tabs 01/31/23 gabapentin 800 mg tablet 800 mg PO TID 90 days #270 tabs 01/31/23 tolterodine 2 mg tablet 2 mg PO BID #60 tabs 04/07/23 bupropion HCl 150 mg tablet,12 hr See Rx Instructions .Route 05/02/23 sustained-release .COMPLEX #180 tabs fluticasone propionate 50 1 spray intranasal HS 90 days #48 05/12/23 mcg/actuation nasal grams spray,suspension levothyroxine 125 mcg tablet See Rx Instructions .Route 05/12/23 .COMPLEX #90 tabs ciprofloxacin HCl 500 mg tablet 500 mg PO BID 7 days #14 tabs 05/17/23 Results & Data (ED) Vital Signs Vital Signs - 24 hr 05/27/23 10:04 05/27/23 10:19 05/27/23 11:08 Temperature 36.7 C Temperature Source Temporal Artery Scan Pulse Rate 92 H 82 Pulse Rate [Apical] 74 Pulse Rhythm [Apical] Regular Pulse Strength [Apical] Normal Respiratory Rate 18 18 Respiratory Effort / Characteristics Non-Labored Spontaneous Respiratory Depth Normal Blood Pressure 122/68 Blood Pressure [Left Arm] 131/77 Blood Pressure Mean 86 Blood Pressure Mean [Left Arm] 95 Blood Pressure Position [Left Arm] Pulse Oximetry 95 98 Oxygen Delivery Method Room Air Room Air Sepsis Recent Fever Within 48 Hours No Sepsis New/Unexplained Change in Mental Status No Sepsis Action Taken by Nursing No Action Required 05/27/23 13:11 Temperature Temperature Source Pulse Rate Pulse Rate [Apical] 79 Pulse Rhythm [Apical] Pulse Strength [Apical] Respiratory Rate 20 Respiratory Effort / Characteristics Respiratory Depth Blood Pressure Blood Pressure [Left Arm] 141/73 H Blood Pressure Mean Blood Pressure Mean [Left Arm] 95 Blood Pressure Position [Left Arm] Semi-fowlers Pulse Oximetry 97 Oxygen Delivery Method Room Air Sepsis Recent Fever Within 48 Hours Sepsis New/Unexplained Change in Mental Status Sepsis Action Taken by Nursing Laboratory Data 05/27/23 10:27 05/27/23 10:27 Lab Results 05/27/23 05/27/23 Range/Units 10: 13:09 WBC 4.75 L (4.8-10.8) K/ul RBC 4.06 L (4.20-5.40) M/uL Hgb 12.7 (12.0-16.0) g/dl Hct 36.8 L (37.0-47.0) % MCV 90.6 (80.0-100.0) fL MCH 31.3 (25.0-34.0) pg MCHC 34.5 (32.0-36.0) g/dL RDW Std Deviation 40.9 (36.4-46.3) fL RDW Coeff of Reynaldo 12.2 (11.5-14.5) % Plt Count 164 (130-400) K/uL MPV 10.1 (9.4-12.4) fL Immature Gran % (Auto) 0.4 % Neut % (Auto) 70.6 % Lymph % (Auto) 16.6 % Ransom % (Auto) 10.9 % Eos % (Auto) 1.1 % Baso % (Auto) 0.4 % Neut # (Auto) 3.35 (1.40-6.50) K/uL Lymph # (Auto) 0.79 L (1.20-3.40) K/uL Ransom # (Auto) 0.52 (0.11-0.59) K/uL Eos # (Auto) 0.05 (0.00-0.50) K/uL Baso # (Auto) 0.02 (0.00-0.20) K/uL Immature Gran # (Auto) 0.02 (0.01-0.20) K/uL Sodium 135 L (136-145) mmol/L Potassium 3.9 (3.5-5.1) mmol/L Chloride 95 L (98-107) mmol/L Carbon Dioxide 31 (21-32) mmol/L Anion Gap 9 (3-11) BUN 28 H (6-23) mg/dl Creatinine 1.57 H (0.6-1.2) mg/dl Est Cr Clr Drug Dosing Not Reportable Est GFR ( Amer) 37.3 ml/min Est GFR (Non-Af Amer) 32.1 ml/min BUN/Creatinine Ratio 17.8 (10-20) Glucose 122 H (70-99(Fasting)) mg/dl Calcium 9.5 (8.6-10.3) mg/dl Total Bilirubin 1.4 H (0.2-1.0) mg/dl AST 23 (13-39) U/L ALT 15 (7-52) U/L Alkaline Phosphatase 39 (34-104) U/L Total Protein 6.9 (6.0-8.3) gm/dl Albumin 4.0 (3.4-5.0) gm/dl Globulin 2.9 (2.5-4.0) gm/dl Albumin/Globulin Ratio 1.4 (0.9-2) Lipase 13 (11-82) U/L Urine Color Yellow Urine Appearance Clear (Clear) Urine pH 6.0 (4.5-7.5) Ur Specific [place] 1.020 (1.000-1.030) Urine Protein Trace H (Negative) Urine Glucose (UA) Negative (Negative) Urine Ketones Trace H (Negative) Urine Blood Negative (Negative) Urine Nitrite Negative (Negative) Urine Bilirubin Negative (Negative) Urine Urobilinogen Negative (Negative) Ur Leukocyte Esterase Negative (Negative) Urine WBC (Auto) 5-10 H (0-5) /hpf Urine RBC (Auto) 0-4 (0-4) /hpf U Hyaline Cast (Auto) 1-5 (0-5) /lpf U Epithel Cells (Auto) >30 H (0-5) /lpf Urine Bacteria (Auto) Negative (Negative) Administered Medications Discontinued Medications Sodium Chloride (Nss) 1,000 mls @ 999 mls/hr IV .Q1H1M ONE Stop: 05/27/23 11:34 Last Infusion: 05/27/23 13:10 Dose: Infused Documented By: Admin: 05/27/23 11:06 Dose: 999 mls/hr Documented By: LAURA Ondansetron HCl (Ondansetron Inj 2 Mg/Ml 2 Ml Vial) 4 mg IV NOW STA Stop: 05/27/23 10:35 Last Admin: 05/27/23 11:06 Dose: 4 mg Documented By: LAURA Imaging Data Radiologist's Impression: Abdomen/Pelvis CT 05/27/23 11:11 CT SCAN OF THE ABDOMEN AND PELVIS WITHOUT IV CONTRAST CLINICAL HISTORY: Nausea and vomiting. COMPARISON STUDY: Abdominal CT dated 08/14/2021. TECHNIQUE: CT scan of the abdomen and pelvis is performed from the lung bases to the proximal femora. Images are reviewed in the axial, sagittal, and coronal planes. IV contrast was not administered for this examination. Note that the examination was performed and significant suboptimal fashion without IV contrast. A dose lowering technique was utilized adhering to the principles of ALARA. CT DOSE: 1063.92 mGy.cm FINDINGS: Lung bases: The heart is top normal in size and without pericardial effusion. There is diminished attenuation of the cardiac blood pool as compared to the myocardium suggesting anemia. There are scattered calcified granulomas. The lung bases are clear. There is a moderate hiatal hernia. Liver: The unenhanced liver is normal in size, contour, and attenuation. There is no intrahepatic biliary ductal dilatation. There are scattered calcified hepatic granulomas. Gallbladder: Unremarkable. Spleen: Normal in size and attenuation. There are calcified splenic granulomas. 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 Pancreas: Unremarkable. Adrenal glands: Unremarkable. Kidneys: The unenhanced kidneys are normal in size and without hydronephrosis. There are no renal calculi identified. There is no evidence of contour deforming renal mass lesion. Abdominal vasculature: The abdominal aorta is normal in course and caliber noting mild to moderate atherosclerotic calcification. Bowel: There is postsurgical change from right hemicolectomy with ileocolic anastomosis. The proximal small bowel loops are markedly distended and fluid- filled, measuring up to 5 cm diameter. There is a focal transition point seen in the anterior abdomen on image #176. The distal small bowel is decompressed, and findings are consistent with a high-grade bowel obstruction. There is interloop fluid and mild infiltration in the surrounding mesentery. No focally thick- walled bowel loops are identified. There is no pneumatosis intestinalis or portal venous gas. There is fecalization above the transition point. There is moderate colonic fecal retention. Peritoneum: No intraperitoneal free air is identified. There is trace free fluid in the pelvis. Lymphadenopathy: None. Pelvic viscera: The bladder is mildly distended and contains intraluminal gas. The uterus is surgically absent. No adnexal lesion is seen. Skeletal structures: The skeletal structures are osteopenic. There is mild to moderate lumbosacral spondylosis. No lytic or blastic lesions are seen. There are numerous subacute-appearing bilateral rib fractures. There is degenerative sclerosis of the sacroiliac joints and pubic symphysis. IMPRESSION: 1. High-grade small bowel obstruction as above. This is likely on the basis of adhesions and clinical correlation will be required. 2. There is interloop fluid and mild infiltration of the surrounding mesentery. 3. There is no pneumatosis intestinalis or portal venous gas. No focally thick- walled bowel loops are identified and there is no intraperitoneal free air. 4. Trace free fluid in the pelvis is likely reactive. 5. Moderate hiatal hernia. 6. Gas within the bladder lumen is nonspecific and likely related to instrumentation. Correlate with clinical findings and urinalysis. 7. Additional findings as above. ACT 112: Negative or not required by law. Electronically signed by: Scott Kim M.D. 05/27/2023 12:59 PM Discharge Plan Visit Data Chief Complaint: Vomiting Stated Complaint: blockage, hasnt eaten since tue, ED Provider: Hay Cooley Discharge Problem: SBO (small bowel obstruction) Forms Stand Alone Forms: [facility] Prescriptions Prescriptions: No Action fluoxetine 40 mg capsule See Rx Instructions .ROUTE .COMPLEX Qty: 90 3RF Dose Instruction: TAKE 1 CAPSULE BY MOUTH IN THE MORNING FOR DEPRESSION Rx Instructions: TAKE 1 CAPSULE BY MOUTH IN THE MORNING FOR DEPRESSION lisinopril 20 mg tablet See Rx Instructions .ROUTE .COMPLEX Qty: 90 3RF Dose Instruction: TAKE 1 TABLET BY MOUTH DAILY Rx Instructions: TAKE 1 TABLET BY MOUTH DAILY alendronate [Fosamax] 70 mg tablet 70 mg PO .weekly Qty: 12 3RF tolterodine 2 mg tablet 2 mg PO BID Qty: 60 5RF bupropion HCl 150 mg tablet sustained-release 12 hr See Rx Instructions .ROUTE .COMPLEX Qty: 180 3RF Dose Instruction: TAKE 1 TABLET BY MOUTH TWICE DAILY Rx Instructions: TAKE 1 TABLET BY MOUTH TWICE DAILY fluticasone propionate 50 mcg/actuation spray,suspension 1 spray intranasal HS 90 Days Qty: 48 3RF Rx Instructions: administer into each nostril levothyroxine 125 mcg tablet See Rx Instructions .ROUTE .COMPLEX Qty: 90 3RF Dose Instruction: TAKE 1 TABLET BY MOUTH DAILY Rx Instructions: TAKE 1 TABLET BY MOUTH DAILY ciprofloxacin HCl 500 mg tablet 500 mg PO BID 7 Days Qty: 14 0RF clotrimazole-betamethasone 1-0.05 % cream 1 applic topical .qhs Qty: 45 11RF Rx Instructions: Apply small/pea-sized amount topically before bed ceftriaxone 250 mg recon soln 250 mg IM ONCE Qty: 1 0RF azelastine 137 mcg (0.1 %) aerosol,spray 1 spray intranasal BID Qty: 3 3RF Rx Instructions: Use 1 spray(s) in each nostril twice daily cholecalciferol (vitamin D3) [Vitamin D3] 2,000 unit capsule 2,000 unit PO QAM betamethasone dipropionate 0.05 % cream 1 applic TOP DAILY baclofen 20 mg tablet 20 mg PO TID 90 Days Qty: 270 3RF gabapentin 800 mg tablet 800 mg PO TID 90 Days Qty: 270 3RF Multivitamin 50 Plus Tablet 1 tab PO HS acetaminophen [Tylenol Extra Strength] 500 mg Tablet 500 mg PO Q6H PRN (Reason: Pain) calcipotriene 0.005 % cream 1 applic TOPICAL DAILY omega 5-[id number]-[id number]-fish oil [Fish Oil] 1,200 (144-216) mg Capsule 1 cap PO DAILY Referrals Referrals: Graeme Guevara, [Primary Care Provider] -
[2023-05-27 10:41] LABS: Basophils # (auto) 0.02 K/uL (0.00-0.20); Basophils % (auto) 0.4 %; Eosinophils # (auto) 0.05 K/uL (0.00-0.50); Eosinophils % (auto) 1.1 %; Hematocrit (blood only) 36.8 % (37.0-47.0); Hemoglobin 12.7 g/dl (12.0-16.0); Immature Granulocytes # (auto) 0.02 K/uL (0.01-0.20); Immature Granulocytes % (auto) 0.4 %; Lymphocytes # (auto) 0.79 K/uL (1.20-3.40); Lymphocytes % (auto) 16.6 %; Mean Corpuscular Hemoglobin 31.3 pg (25.0-34.0); Mean Corpuscular Hgb Conc 34.5 g/dL (32.0-36.0); Mean Corpuscular Volume 90.6 fL (80.0-100.0); Mean Platelet Volume 10.1 fL (9.4-12.4); Monocytes # (auto) 0.52 K/uL (0.11-0.59); Monocytes % (auto) 10.9 %; Neutrophils # (auto) 3.35 K/uL (1.40-6.50); Neutrophils % (auto) 70.6 %; Platelet Count 164 K/uL (130-400); RDW Coefficient of Variation 12.2 % (11.5-14.5); RDW Standard Deviation 40.9 fL (36.4-46.3); Red Blood Count 4.06 M/uL (4.20-5.40); White Blood Count 4.75 K/ul (4.8-10.8)
[2023-05-27 10:55] LABS: Alanine Aminotransferase 15 U/L (7-52); Albumin Globulin Ratio 1.4 (0.9-2); Alkaline Phosphatase 39 U/L (34-104); Anion Gap 9 (3-11); Aspartate Aminotransferase 23 U/L (13-39); BUN Creatinine Ratio 17.8 (10-20); Bilirubin,Total 1.4 mg/dl (0.2-1.0); Blood Urea Nitrogen 28 mg/dl (6-23); Calcium 9.5 mg/dl (8.6-10.3); Carbon Dioxide 31 mmol/L (21-32); Chloride 95 mmol/L (98-107); Est GFR (African American) 37.3 ml/min; Est GFR (Non-African American) 32.1 ml/min; Globulin 2.9 gm/dl (2.5-4.0); Glucose 122 mg/dl (70-99(Fasting)); Lipase 13 U/L (11-82); Potassium 3.9 mmol/L (3.5-5.1); Sodium 135 mmol/L (136-145); Total Protein 6.9 gm/dl (6.0-8.3)
--- NOTE | 2023-05-27 13:01 | CT Scan Report ---
CT SCAN OF THE ABDOMEN AND PELVIS WITHOUT IV CONTRAST CLINICAL HISTORY: Nausea and vomiting. COMPARISON STUDY: Abdominal CT dated 08/14/2021. TECHNIQUE: CT scan of the abdomen and pelvis is performed from the lung bases to the proximal femora. Images are reviewed in the axial, sagittal, and coronal planes. IV contrast was not administered for this examination. Note that the examination was performed and significant suboptimal fashion without IV contrast. A dose lowering technique was utilized adhering to the principles of ALARA. CT DOSE: 1063.92 mGy.cm FINDINGS: Lung bases: The heart is top normal in size and without pericardial effusion. There is diminished att enuation of the cardiac blood pool as compared to the myocardium suggesting anemia. There are scatter ed calcified granulomas. The lung bases are clear. There is a moderate hiatal hernia. Liver: The unenhanced liver is normal in size, contour, and attenuation. There is no intrahepatic marli iary ductal dilatation. There are scattered calcified hepatic granulomas. Gallbladder: Unremarkable. Spleen: Normal in size and attenuation. There are calcified splenic granulomas. A peripherally calcif ied splenic artery aneurysm measures up to 13 mm. Pancreas: Unremarkable. Adrenal glands: Unremarkable. Kidneys: The unenhanced kidneys are normal in size and without hydronephrosis. There are no renal estelita culi identified. There is no evidence of contour deforming renal mass lesion. Abdominal vasculature: The abdominal aorta is normal in course and caliber noting mild to moderate at herosclerotic calcification. Bowel: There is postsurgical change from right hemicolectomy with ileocolic anastomosis. The proximal small bowel loops are markedly distended and fluid-filled, measuring up to 5 cm diameter. There is a focal transition point seen in the anterior abdomen on image #176. The distal small bowel is decompr essed, and findings are consistent with a high-grade bowel obstruction. There is interloop fluid and mild infiltration in the surrounding mesentery. No focally thick-walled bowel loops are identified. T here is no pneumatosis intestinalis or portal venous gas. There is fecalization above the transition point. There is moderate colonic fecal retention. Peritoneum: No intraperitoneal free air is identified. There is trace free fluid in the pelvis. Lymphadenopathy: None. Pelvic viscera: The bladder is mildly distended and contains intraluminal gas. The uterus is surgical ly absent. No adnexal lesion is seen. Skeletal structures: The skeletal structures are osteopenic. There is mild to moderate lumbosacral sp ondylosis. No lytic or blastic lesions are seen. There are numerous subacute-appearing bilateral rib fractures. There is degenerative sclerosis of the sacroiliac joints and pubic symphysis. IMPRESSION: 1. High-grade small bowel obstruction as above. This is likely on the basis of adhesions and clinical correlation will be required. 2. There is interloop fluid and mild infiltration of the surrounding mesentery. 3. There is no pneumatosis intestinalis or portal venous gas. No focally thick-walled bowel loops are identified and there is no intraperitoneal free air. 4. Trace free fluid in the pelvis is likely reactive. 5. Moderate hiatal hernia. 6. Gas within the bladder lumen is nonspecific and likely related to instrumentation. Correlate with clinical findings and urinalysis. 7. Additional findings as above. ACT 112: Negative or not required by law. Electronically signed by: Scott Kim M.D. 05/27/2023 12:59 PM
--- NOTE | 2023-05-27 13:13 | History & Physical Report ---
Date of Service May 27, 2023 Assessment & Plan (1) SBO (small bowel obstruction): Plan: Nausea, vomiting, and right-sided abdominal pain that began on Thursday 05/25 Hx of recurrent adhesion SBOs since 2009 (ruptured small intestine at [facility] in 2009; due to a prior hysterectomy) Abdomen/pelvic CT revealed high-grade small bowel obstruction; no pneumatosis intestinalis or intraperitoneal free air Normotensive on arrival; no leukocytosis; afebrile Electrolytes okay Lactate ordered, pending NG tube placed in the ED; follow-up KUB ordered, pending Keep n.p.o. for now Bowel rest Continue fluid resuscitation with LR at 100ml/hr x 2 Switched p.o. medications to IV General surgery consulted No indication for immediate surgical intervention at this time Consider Gastrografin 100 mL via NG tube if conservative management fails CRP ordered, pending Will defer prophylactic abx as there is little concern for bacterial translocation or bowel compromise at this time IV Tylenol as needed for pain/fever IV Zofran as needed for nausea/vomiting A.m. CBC, BMP, CRP (2) Abdominal adhesions: Plan: Hx of abdominal adhesions (as above) Has not required surgical intervention in the past for adhesive takedown (3) Urinary incontinence: Plan: Abdomen/pelvic CT revealed gas within the bladder lumen UA negative Patient had a Botox treatment for her bladder on Thursday 05/25 (she has this every 6 months) Covered with ciprofloxacin 500 mg twice daily x 7 days (started on 05/21; she will finish her course today) Hold tolterodine PureWick (4) Allergic rhinitis: Plan: Continue home nasal sprays (5) Essential (primary) hypertension: Plan: Hold lisinopril for now (6) Chronic depression: Plan: Hold fluoxetine (7) Trigeminal neuralgia: Plan: Hold baclofen, gabapentin (8) Hypothyroidism: Plan: Hold levothyroxine (9) Psoriasis: Plan: Continue betamethasone cream, calcipotriene (10) Right rib fracture: Plan: Patient fell > 2 months ago in the bathroom Not on blood thinners Outpatient CXR on 03/31/2023 noted an acute minimally displaced right anterolateral ninth rib fracture She is still having some tenderness to palpation at this time (11) DALLAS (acute kidney injury): Plan: BUN 28, creatinine 1.57 (baseline 1.06), EGFR 32.1 Avoid nephrotoxic agents for possible Continue IVF resuscitation (as above) A.m. BMP (12) Mild sleep apnea: Plan: Patient denies using CPAP, or supplemental oxygen at night (13) Hx SBO: Plan Disposition: Admit to [facility] Full code NG tube Keep n.p.o. for now VTE PPx: Heparin 5000u SQ q12h History of Present Illness Chief Complaint: Vomiting, SBO Primary Care Provider: Graeme Guevara DO Fernandez is a pleasant 72-year-old female with PMH of recurrent SBOs, s/p hyste rectomy abdominal adhesions,, trigeminal neuralgia, hypothyroidism, mixed incontinence urge and stress, psoriasis, HTN, depression, and allergic rhinitis. She presented for vomiting and abdominal pain that began on Thursday 05/25. While the abdominal pain has subsided at time of admission on 05/27, she reports that she was still vomiting this morning x5 episodes. She has not been tolerating solids or fluids over the past 3 days. She reports that she is having symptoms similar to past episodes of her recurrent SBO. Of note, patient has a history of ruptures small intestines in 2009 at [facility] due to a prior hysterectomy. She denies prior surgical intervention for taking down adhesions, and says that this may have been conservative management with NG tube. She did not take any of her morning medications. She reports no recent changes in medications, besides being on a course of ciprofloxacin since 05/21 for her Botox treatment in bladder (which she gets every 6 months). Patient also says she took Imodium on Tuesday for diarrhea. Last BM on Wednesday 05/24. No prior history of appendicitis, however her appendix was removed during prior abdominal surgery. No at home oxygen use. No sick contacts. Patient denies smoking, alcohol, and tobacco use. Patient is hypertensive at 141/73 at time of admission; vitals otherwise stable. ED Course: NSS 1000 mL Zofran 4 mg IV NG tube placement ROS: Patient endorses fatigue, right-sided GAGE (secondary to trigeminal neuralgia), abdominal cramping, nausea, vomiting, and diarrhea (resolved; on Wednesday 05/24). Patient denies fever, chills, night sweats, cough, hematemesis, CP, SOB, urinary symptoms, or blood in urine or stool. Patient denies PMH of NC, DVT/PE, CVA, or diabetes Allergies Allergy/AdvReac Type Severity Reaction Status Date / Time codeine Allergy Severe Fainting Verified 02/14/23 14:27 morphine Allergy Severe resp Verified 02/14/23 14:27 depression animal dander Allergy Intermediate CONGESTION, Verified 02/14/23 14:27 RESP ISSUES house dust mite Allergy Intermediate CONGESTION, Verified 02/14/23 14:27 RESP ISSUES meperidine Allergy Intermediate Vomiting Verified 02/14/23 14:27 pineapple Allergy Intermediate C[place]QU[place]O LIPS Verified 02/14/23 14:27 AND FINGERS hydromorphone AdvReac Intermediate hallucinati Verified 02/14/23 14:27 ons Grass Allergy Intermediate CONGESTION, Uncoded 02/14/23 14:27 RESP ISSUES Mold Allergy Intermediate CONGESTION, Uncoded 02/14/23 14:27 RESP ISSUES Trees Allergy Intermediate CONGESTION, Uncoded 02/14/23 14:27 RESP ISSUES Home Medications Medication Instructions Recorded Confirmed Type [id number] 1 tab PO HS 02/16/18 05/27/23 History tablet (Multivitamin 50 Plus tablet) acetaminophen 500 mg tablet 500 mg PO Q6H PRN Pain 12/04/18 05/27/23 History (Tylenol Extra Strength) cholecalciferol (vitamin D3) 50 2,000 unit PO QAM 01/11/19 05/27/23 History mcg (2,000 unit) capsule (Vitamin D3) calcipotriene 0.005 % topical cream 1 applic topical DAILY 08/14/21 05/27/23 History omega 9-eur-dlr-fish oil 1,200 mg 1 cap PO DAILY 08/14/21 05/27/23 History (144 mg-216 mg) capsule (Fish Oil) betamethasone dipropionate 0.05 % 1 applic topical DAILY Skin 01/05/22 05/27/23 History topical cream Irritation clotrimazole-betamethasone 1 1 applic topical .qhs #45 grams 05/12/22 05/27/23 Rx %-0.05 % topical cream fluoxetine 40 mg capsule See Rx Instructions .Route 06/21/22 05/27/23 Rx .COMPLEX #90 caps lisinopril 20 mg tablet See Rx Instructions .Route 09/09/22 05/27/23 Rx .COMPLEX #90 tabs alendronate 70 mg tablet (Fosamax) 70 mg PO .weekly #12 tabs 11/15/22 05/27/23 Rx azelastine 137 mcg (0.1 %) nasal 1 spray intranasal BID #3 BTLS 01/06/23 05/27/23 Rx spray aerosol baclofen 20 mg tablet 20 mg PO TID 90 days #270 tabs 01/31/23 05/27/23 Rx gabapentin 800 mg tablet 800 mg PO TID 90 days #270 tabs 01/31/23 05/27/23 Rx tolterodine 2 mg tablet 2 mg PO BID #60 tabs 04/07/23 05/27/23 Rx fluticasone propionate 50 1 spray intranasal HS 90 days #48 05/12/23 05/27/23 Rx mcg/actuation nasal grams spray,suspension levothyroxine 125 mcg tablet See Rx Instructions .Route 05/12/23 05/27/23 Rx .COMPLEX #90 tabs ciprofloxacin HCl 500 mg tablet 500 mg PO BID 7 days #14 tabs 05/17/23 05/27/23 Rx bupropion HCl 150 mg tablet,12 hr 150 mg PO BID 05/27/23 05/27/23 History sustained-release Past Med/Surg History Medical History Urinary incontinence History of thyroid cancer 1985 Hx SBO High frequency hearing loss of both ears Poorer in right ear Mild sleep apnea CPAP Vitamin D deficiency Trigeminal neuralgia Hormone replacement therapy (postmenopausal) Essential (primary) hypertension Chronic depression Allergic rhinitis Osteoarthritis Degenerative disc disease Rupture of small intestine HX OF 2009--D/T ADHESIONS FROM HYSTERECTOMY Lymphedema IN BILT FEET/ANKLES Hypothyroidism Anemia Depression Trigeminal neuralgia of right side of face Hypertension History of thyroid cancer Surgical History History of toe surgery S/P epidural steroid injection History of cataract surgery RIGHT History of anesthesia reaction DIFFICULTY WAKING UP H/O left breast biopsy BENIGN History of endometrial ablation History of bilateral tubal ligation History of dilatation and curettage X3 History of total abdominal hysterectomy and bilateral salpingo-oophorectomy History of carpal tunnel release BILT History of bladder surgery BLADDER TUCK History of appendectomy History of colonoscopy History of bowel resection 2009 AFTER RUPTURE OF SMALL INTESTINE H/O ileostomy 2009 FOR 4 MONTHS S/P thyroid biopsy 1985--[place] History of tooth extraction WISDOM TEETH History of parathyroidectomy History of thyroidectomy, total 1985--[place] HAD LYMPH NODES REMOVED S/P ileostomy S/P small bowel resection Family History Grandfather Family hx of colon cancer MATERNAL Family/Other Family hx of colon cancer MATERNAL COUSIN Denies family history of Ovarian cancer Prostate cancer Myocardial infarction Breast cancer Social History Smoking Status: Never smoker Second Hand Exposure: Yes (FATHER SMOKED, A CHILD ); Do You Dip or Chew Tobacco: No; Hx Alcohol Use: No Hx Substance Use: No Preferred Language: Bulgarian Communication Ability: Effective Visual Impairment: No Limitations Hearing Ability: Normal News Video Editor Required: No Beliefs That Will Affect Care: None marital status: Current Living Situation: Spouse current occupational status: employed and retired current occupation: 3 shifts/week at [employer] How many Children do You have: 2 Feels Safe at Home: Yes Childhood Exposure to Second-Hand Smoke: Yes Diet: regular caffeine: No during the past year weight has: increased > 10 lbs Dental Care, Regularly: Yes Physical Activity Frequency: 3-4 Times per Week Seatbelt Use: always Sunscreen Use: No Assistive Devices: Glasses Review of Systems Review of Systems: See HPI above Physical Exam Physical Exam: General: no acute distress; pleasant affect; non-toxic appearing; well- nourished; cooperative HEENT: normocephalic, atraumatic; crusting around the lips; no scleral icterus; PERRLA w/ EOMs intact; moist mucus membrane; vision and hearing grossly intact Neck: supple; no JVD; no lymphadenopathy; trachea midline Skin: warm, dry without signs of tenting; no cyanosis; no rashes, bruising, lesions, or erythema noted; no jaundice CV: chest wall NTP; RRR; S1/S2 normal; no murmurs/rubs/gallops; pulses intact and symmetric at radial, DP, and PT Lungs: no acute respiratory distress; symmetrical chest wall expansion; clear breath sounds across all lung marie w/o adventitious sounds; no wheezing ABD: Soft; hypoactive bowel sounds in all 4 quadrants; no rebound/guarding; no ascites; RUQ is TTP, especially along the lower rib cage; no signs of rashes, bruising, or internal bleeding; not firm MSK: no tics or fasciculations; no edema noted in the LEs b/l, nonerythematous Neuro: A&Ox3; normal mood and affect; fluent speech; no focal deficits; sensation grossly intact LEs B/L Results & Data Results & Data Vital Signs (Past 12 Hours) Vital Signs Temp Pulse Pulse Resp BP BP Pulse Ox 05/27/23 11:08 74 18 131/77 98 05/27/23 10:19 82 05/27/23 10:04 36.7 C 92 H 18 122/68 95 O2 Del Method 05/27/23 11:08 Room Air 05/27/23 10:19 05/27/23 10:04 Room Air Laboratory Results Abnormal lab results 05/27/23 Range/Units 10:27 WBC 4.75 L (4.8-10.8) K/ul RBC 4.06 L (4.20-5.40) M/uL Hct 36.8 L (37.0-47.0) % Lymph # (Auto) 0.79 L (1.20-3.40) K/uL Sodium 135 L (136-145) mmol/L Chloride 95 L (98-107) mmol/L BUN 28 H (6-23) mg/dl Creatinine 1.57 H (0.6-1.2) mg/dl Glucose 122 H (70-99(Fasting)) mg/dl Total Bilirubin 1.4 H (0.2-1.0) mg/dl Diagnostic Findings Abdomen/Pelvis CT 05/27/23 11:11 CT SCAN OF THE ABDOMEN AND PELVIS WITHOUT IV CONTRAST CLINICAL HISTORY: Nausea and vomiting. COMPARISON STUDY: Abdominal CT dated 08/14/2021. TECHNIQUE: CT scan of the abdomen and pelvis is performed from the lung bases to the proximal femora. Images are reviewed in the axial, sagittal, and coronal planes. IV contrast was not administered for this examination. Note that the examination was performed and significant suboptimal fashion without IV contrast. A dose lowering technique was utilized adhering to the principles of ALARA. CT DOSE: 1063.92 mGy.cm FINDINGS: Lung bases: The heart is top normal in size and without pericardial effusion. There is diminished attenuation of the cardiac blood pool as compared to the myocardium suggesting anemia. There are scattered calcified granulomas. The lung bases are clear. There is a moderate hiatal hernia. Liver: The unenhanced liver is normal in size, contour, and attenuation. There is no intrahepatic biliary ductal dilatation. There are scattered calcified hepatic granulomas. Gallbladder: Unremarkable. Spleen: Normal in size and attenuation. There are calcified splenic granulomas. 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 Pancreas: Unremarkable. Adrenal glands: Unremarkable. Kidneys: The unenhanced kidneys are normal in size and without hydronephrosis. There are no renal calculi identified. There is no evidence of contour deforming renal mass lesion. Abdominal vasculature: The abdominal aorta is normal in course and caliber noting mild to moderate atherosclerotic calcification. Bowel: There is postsurgical change from right hemicolectomy with ileocolic anastomosis. The proximal small bowel loops are markedly distended and fluid- filled, measuring up to 5 cm diameter. There is a focal transition point seen in the anterior abdomen on image #176. The distal small bowel is decompressed, and findings are consistent with a high-grade bowel obstruction. There is interloop fluid and mild infiltration in the surrounding mesentery. No focally thick- walled bowel loops are identified. There is no pneumatosis intestinalis or portal venous gas. There is fecalization above the transition point. There is moderate colonic fecal retention. Peritoneum: No intraperitoneal free air is identified. There is trace free fluid in the pelvis. Lymphadenopathy: None. Pelvic viscera: The bladder is mildly distended and contains intraluminal gas. The uterus is surgically absent. No adnexal lesion is seen. Skeletal structures: The skeletal structures are osteopenic. There is mild to moderate lumbosacral spondylosis. No lytic or blastic lesions are seen. There are numerous subacute-appearing bilateral rib fractures. There is degenerative sclerosis of the sacroiliac joints and pubic symphysis. IMPRESSION: 1. High-grade small bowel obstruction as above. This is likely on the basis of adhesions and clinical correlation will be required. 2. There is interloop fluid and mild infiltration of the surrounding mesentery. 3. There is no pneumatosis intestinalis or portal venous gas. No focally thick- walled bowel loops are identified and there is no intraperitoneal free air. 4. Trace free fluid in the pelvis is likely reactive. 5. Moderate hiatal hernia. 6. Gas within the bladder lumen is nonspecific and likely related to instrumentation. Correlate with clinical findings and urinalysis. 7. Additional findings as above. ACT 112: Negative or not required by law. Electronically signed by: Soctt Kim M.D. 05/27/2023 12:59 PM Code Status & VTE Plan Code Status Full code VTE Prophylaxis Plan VTE Prophylaxis will be ordered: Yes Supervising Physician Co-Signing Physician Notes Rebecca is a 72-year-old female with a past medical history of partial small bowel resection 2009 at [facility], perf duodenal ulcer, recurrent SBO, and hysterectomy who presents with nausea/vomiting similar in quality to prior recurrent small bowel obstructions. On ER assessment she is normotensive, she is not tachycardic, and she is satting normally on room air. She does not have a leukocytosis, she has a mild DALLAS with creatinine of 1.57 from baseline of approximately 1.1, and mild hyponatremia at 135. No metabolic acidosis is appreciated on BMP. CT of the abdomen/pelvis shows a high-grade small bowel obstruction likely adhesional with interloop fluid and mild mesenteric infiltration. There is no pneumatosis, no portal venous gas, no free air. Bladder lumen gas nonspecific is noted, likely reactive trace free fluid in pelvis is noted, moderate hiatal hernia is present. At bedside she is minimally tender to palpation in the abdomen, bowel sounds are diminished and near absent in the lower quadrants, no guarding/rebound is present. Mucous membranes are dry and she is clinically volume depleted appearing she is tender to palpation at the right lower ribs; subacute rib fractures are noted. No flail chest is appreciated. No hemoptysis or hypoxia is noted. Lidocaine patch/symptomatic management at this time. PT/OT ordered. No neurologic deficits or neck pain High-grade SBO Patient reports that she had a hysterectomy with subsequent adhesions, due to adhesional disease she had a small bowel rupture requiring subsequent partial resection in 2009. Since that time she has not required additional surgery or takedown of adhesions; but has had multiple recurrent episodes of SBO CT as noted History of peritonitis s/p ileostomy and reversal, multiple SBO's since partial small bowel resection 2009 at [facility] No leukocytosis, no signs of pneumatosis or bowel ischemia on CT, lactate is pending. Prior obstructions have resolved medically without takedown of adhesions. Nontoxic-appearing. NGT to LIS, IV FM, antiemetics/pain control. Mixed urge/stress incontinence: History of cystoscopy with Botox bladder injection, last 05/25/2023. Gas on CT is likely due to instrumentation from this procedure. No signs of UTI symptoms at that time, no uti sx currently. Pt is continued on cipro to complete 1 week course for post-procedural ppx today, No additional abx/change indicated. History of trigeminal neuralgia: Stable on baclofen/gabapentin; continued Lumbar radiculopathy/lumbar stenosis with claudication: Chronic, mostly right- sided. No acute surgical management required, no focal weakness or sensation loss. PG Care Time/CCT Total # of Minutes Spent Total Time Spent with Patient: Total time spent is greater than 50% in coordination of care (as documented) at patient's floor/unit and/or counseling patient: C[place] [address] INT INP/OBS CARE 2/55MIN Patient Type Established History Comprehensive Exam Comprehensive Medical Decision Making Moderate Complexity Diagnoses SBO (small bowel obstruction) K56.609 Abdominal adhesions K66.0 Urinary incontinence R32 Allergic rhinitis J30.9 Essential (primary) hypertension I10 Chronic depression F32.9 Trigeminal neuralgia G50.0 Hypothyroidism E03.9 Psoriasis L40.9 Right rib fracture S22.31XA DALLAS (acute kidney injury) N17.9 Mild sleep apnea G47.30 Hx SBO Z87.19
[2023-05-27 13:23] LABS: Appearance Urine Clear (Clear); Bacteria Urine Automated Negative (Negative); Bilirubin Urine Negative (Negative); Blood Urine Negative (Negative); Color Urine Yellow; Epithelial Cell Urine Auto >30 /lpf (0-5); Glucose Urine UA Negative (Negative); Ketones Urine Trace (Negative); Leukocyte Esterase Urine Negative (Negative); Nitrite Urine Negative (Negative); Protein Urine Trace (Negative); RBC Urine Automated 0-4 /hpf (0-4); Urobilinogen Urine Negative (Negative)
[2023-05-27 14:32] LABS: Magnesium 2.2 mg/dl (1.7-2.4)
[2023-05-27] MEDS ORDERED: ACETAMINOPHEN 1,000 MG/100 ML VIAL IV STA (14:51)
[2023-05-27] MEDS ORDERED: ONDANSETRON INJ 2 MG/ML 2 ML VIAL IV PRN (15:03)
[2023-05-27] MEDS: LACTATED RINGER'S 1,000 ML IV SCH (15:36)
--- NOTE | 2023-05-27 15:39 | Surgery Consultation ---
<Statement entered by Delonte Ward, DO - 05/27/23 15:56> This patient was seen and examined with the surgical PA Date of Consultation May 27, 2023 Assessment & Plan (1) SBO (small bowel obstruction): Patient is 72 yo pleasant female with a PMH of [place], SBO, Close head injury, depression, HTN, DESTINEY, hypothyroidism, that presented to the [facility] ER today with c/o ongoing nausea and vomiting with abdominal pain that started Tuesday. Patient states she had a bladder Botox last Tuesday and has been taken PO ciprofloxacin which was causing her to diarrhea. She took an Imodium Tuesday and has not had a bowel movement or passed flatus since. She has a history of SBO and a past surgical history of an open total hysterectomy, bowel resection with ileostomy, and a reversal. Currently she denies abdominal pain states that it resolves last night , however has had 5 episodes of vomiting today. On exam patient has NG tube in place, abdomen is soft mildly distended, non tender, non ridged. No wbc elevation, afebrile , VSS CT scan reading : IMPRESSION: 1. High-grade small bowel obstruction as above. This is likely on the basis of adhesions and clinical correlation will be required. 2. There is interloop fluid and mild infiltration of the surrounding mesentery. 3. There is no pneumatosis intestinalis or portal venous gas. No focally thick- walled bowel loops are identified and there is no intraperitoneal free air. 4. Trace free fluid in the pelvis is likely reactive. 5. Moderate hiatal hernia. 6. Gas within the bladder lumen is nonspecific and likely related to instrumentation. Correlate with clinical findings and urinalysis. 7. Additional findings as above. A KUB is taken and not formally read. Will continue conservative treatment at this time Keep NPO IV Fluids for hydration IV antiemetic PRN IV antibiotics IV analgesic PRN Patient seen with Dr. Ward. History of Present Illness Reason for Consultation: SBO Requesting Physician: Alexandre Hwang PA-C Attending Physician: Vladimir Mauricio MD History of Present Illness Patient is 72 yo pleasant female with a PMH of [place], SBO, Close head injury, depression, HTN, DESTINEY, hypothyroidism, that presented to the [facility] ER today with c/o ongoing nausea and vomiting with abdominal pain that started Tuesday. Patient states she had a bladder Botox last Tuesday and has been taken PO ciprofloxacin which was causing her to diarrhea. She took an Imodium Tuesday and has not had a bowel movement or passed flatus since. She has a history of SBO and a past surgical history of an open total hysterectomy, bowel resection with ileostomy, and a reversal. Currently she denies abdominal pain states that it resolves last night , however has had 5 episodes of vomiting today. Allergies Allergy/AdvReac Type Severity Reaction Status Date / Time codeine Allergy Severe Fainting Verified 02/14/23 14:27 morphine Allergy Severe resp Verified 02/14/23 14:27 depression animal dander Allergy Intermediate CONGESTION, Verified 02/14/23 14:27 RESP ISSUES house dust mite Allergy Intermediate CONGESTION, Verified 02/14/23 14:27 RESP ISSUES meperidine Allergy Intermediate Vomiting Verified 02/14/23 14:27 pineapple Allergy Intermediate CARR[place]QU[place]O LIPS Verified 02/14/23 14:27 AND FINGERS hydromorphone AdvReac Intermediate hallucinati Verified 02/14/23 14:27 ons Grass Allergy Intermediate CONGESTION, Uncoded 02/14/23 14:27 RESP ISSUES Mold Allergy Intermediate CONGESTION, Uncoded 02/14/23 14:27 RESP ISSUES Trees Allergy Intermediate CONGESTION, Uncoded 02/14/23 14:27 RESP ISSUES Home Medications Medication Instructions Recorded Confirmed Type pzhkvmkfrtpa-jbzptxag-wqbqtn 1 tab PO HS 02/16/18 05/27/23 History tablet (Multivitamin 50 Plus tablet) acetaminophen 500 mg tablet 500 mg PO Q6H PRN Pain 12/04/18 05/27/23 History (Tylenol Extra Strength) cholecalciferol (vitamin D3) 50 2,000 unit PO QAM 01/11/19 05/27/23 History mcg (2,000 unit) capsule (Vitamin D3) calcipotriene 0.005 % topical cream 1 applic topical DAILY 08/14/21 05/27/23 History omega 5-hom-ipu-fish oil 1,200 mg 1 cap PO DAILY 08/14/21 05/27/23 History (144 mg-216 mg) capsule (Fish Oil) betamethasone dipropionate 0.05 % 1 applic topical DAILY Skin 01/05/22 05/27/23 History topical cream Irritation clotrimazole-betamethasone 1 1 applic topical .qhs #45 grams 05/12/22 05/27/23 Rx %-0.05 % topical cream fluoxetine 40 mg capsule See Rx Instructions .Route 06/21/22 05/27/23 Rx .COMPLEX #90 caps lisinopril 20 mg tablet See Rx Instructions .Route 09/09/22 05/27/23 Rx .COMPLEX #90 tabs alendronate 70 mg tablet (Fosamax) 70 mg PO .weekly #12 tabs 11/15/22 05/27/23 Rx azelastine 137 mcg (0.1 %) nasal 1 spray intranasal BID #3 BTLS 01/06/23 05/27/23 Rx spray aerosol baclofen 20 mg tablet 20 mg PO TID 90 days #270 tabs 01/31/23 05/27/23 Rx gabapentin 800 mg tablet 800 mg PO TID 90 days #270 tabs 01/31/23 05/27/23 Rx tolterodine 2 mg tablet 2 mg PO BID #60 tabs 04/07/23 05/27/23 Rx fluticasone propionate 50 1 spray intranasal HS 90 days #48 05/12/23 05/27/23 Rx mcg/actuation nasal grams spray,suspension levothyroxine 125 mcg tablet See Rx Instructions .Route 05/12/23 05/27/23 Rx .COMPLEX #90 tabs ciprofloxacin HCl 500 mg tablet 500 mg PO BID 7 days #14 tabs 05/17/23 05/27/23 Rx bupropion HCl 150 mg tablet,12 hr 150 mg PO BID 05/27/23 05/27/23 History sustained-release Patient History Medical History Urinary incontinence History of thyroid cancer 1985 Hx SBO High frequency hearing loss of both ears Poorer in right ear Mild sleep apnea CPAP Vitamin D deficiency Trigeminal neuralgia Hormone replacement therapy (postmenopausal) Essential (primary) hypertension Chronic depression Allergic rhinitis Osteoarthritis Degenerative disc disease Rupture of small intestine HX OF 2009--D/T ADHESIONS FROM HYSTERECTOMY Lymphedema IN BILT FEET/ANKLES Hypothyroidism Anemia Depression Trigeminal neuralgia of right side of face Hypertension History of thyroid cancer Surgical History History of toe surgery S/P epidural steroid injection History of cataract surgery RIGHT History of anesthesia reaction DIFFICULTY WAKING UP H/O left breast biopsy BENIGN History of endometrial ablation History of bilateral tubal ligation History of dilatation and curettage X3 History of total abdominal hysterectomy and bilateral salpingo-oophorectomy History of carpal tunnel release BILT History of bladder surgery BLADDER TUCK History of appendectomy History of colonoscopy History of bowel resection 2009 AFTER RUPTURE OF SMALL INTESTINE H/O ileostomy 2009 FOR 4 MONTHS S/P thyroid biopsy 1985--[place] History of tooth extraction WISDOM TEETH History of parathyroidectomy History of thyroidectomy, total 1985--[place] HAD LYMPH NODES REMOVED S/P ileostomy S/P small bowel resection Family History Grandfather Family hx of colon cancer MATERNAL Family/Other Family hx of colon cancer MATERNAL COUSIN Denies family history of Ovarian cancer Prostate cancer Myocardial infarction Breast cancer Social History Smoking Status: Never smoker Second Hand Exposure: Yes (FATHER SMOKED, A CHILD ); Do You Dip or Chew Tobacco: No; Hx Alcohol Use: No Hx Substance Use: No Preferred Language: Singaporean Communication Ability: Effective Visual Impairment: No Limitations Hearing Ability: Normal Clinical Partner Required: No Beliefs That Will Affect Care: None marital status: Current Living Situation: Spouse current occupational status: employed and retired current occupation: 3 shifts/week at [employer] How many Children do You have: 2 Feels Safe at Home: Yes Childhood Exposure to Second-Hand Smoke: Yes Diet: regular caffeine: No during the past year weight has: increased > 10 lbs Dental Care, Regularly: Yes Physical Activity Frequency: 3-4 Times per Week Seatbelt Use: always Sunscreen Use: No Assistive Devices: Glasses Review of Systems Constitutional: no fever and no chills Ear, Nose, Mouth, Throat: + sinus pain/pressure (currently has NG tube ) Respiratory: no dyspnea Cardiovascular: no chest pain Gastrointestinal: + bloating, + nausea and + vomiting; no abdominal pain Musculoskeletal: no muscle weakness Integumentary: no rash Neurologic: no confusion and no memory loss Psychiatric: no problem reported Physical Exam Physical Exam: alert oriented Constitutional: well developed, cooperative and comfortable; no acute distress ENMT: external ear and nose normal, oropharynx normal has NG tube Respiratory: normal respiratory effort and able to speak in complete sentences; no respiratory distress Cardiovascular: Rate/Rhythm: regular rate Gastrointestinal (Abdomen): Inspection/Auscultation: + abdomen distended (mildly ) and + abdominal surgical scar Percussion/Palpation: abdomen soft; no guarding and abdomen not rigid Musculoskeletal: no cyanosis or clubbing, extremities motor strength 5/5 Skin: no rashes, warm and dry Neurologic: awake; not confused Psychiatric: A+Ox3, euthymic affect Results & Data Vital Signs (Past 12 Hours) Vital Signs Temp Pulse Pulse Resp BP BP Pulse Ox 05/27/23 13:11 79 20 141/73 H 97 05/27/23 11:08 74 18 131/77 98 05/27/23 10:19 82 05/27/23 10:04 98.1 F 92 H 18 122/68 95 O2 Del Method 05/27/23 13:11 Room Air 05/27/23 11:08 Room Air 05/27/23 10:19 05/27/23 10:04 Room Air Diagnostic Findings [place], [place] [phone] CT Scan Report Patient: ALCON HUANG Admit Date: 05/27/23 MR#: [id number] Address1: [address] Acct ID:[id number] Address2: Date: 1950 [facility] Zip: [place] [address] Age: 72 Location: ED Sex: F Room/Bed: Att Phy: Diagnosis: blockage, hasnt eaten since tue, vomiting Alicia Phy: Graeme Guevara DO Service Date: 05/27/23 Fam Phy: Interpreting Phy: Scott Kim MDAdmit Phy: Ordering Phy: Hay Cooley DO cc: ~ CT SCAN OF THE ABDOMEN AND PELVIS WITHOUT IV CONTRAST CLINICAL HISTORY: Nausea and vomiting. COMPARISON STUDY: Abdominal CT dated 08/14/2021. TECHNIQUE: CT scan of the abdomen and pelvis is performed from the lung bases to the proximal femora. Images are reviewed in the axial, sagittal, and coronal planes. IV contrast was not administered for this examination. Note that the examination was performed and significant suboptimal fashion without IV contrast. A dose lowering technique was utilized adhering to the principles of ALARA. CT DOSE: 1063.92 mGy.cm FINDINGS: Lung bases: The heart is top normal in size and without pericardial effusion. There is diminished attenuation of the cardiac blood pool as compared to the myocardium suggesting anemia. There are scattered calcified granulomas. The lung bases are clear. There is a moderate hiatal hernia. Liver: The unenhanced liver is normal in size, contour, and attenuation. There is no intrahepatic biliary ductal dilatation. There are scattered calcified hepatic granulomas. Gallbladder: Unremarkable. Spleen: Normal in size and attenuation. There are calcified splenic granulomas. 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 Pancreas: Unremarkable. Adrenal glands: Unremarkable. Kidneys: The unenhanced kidneys are normal in size and without hydronephrosis. There are no renal calculi identified. There is no evidence of contour deforming renal mass lesion. Abdominal vasculature: The abdominal aorta is normal in course and caliber noting mild to moderate atherosclerotic calcification. Bowel: There is postsurgical change from right hemicolectomy with ileocolic anastomosis. The proximal small bowel loops are markedly distended and fluid- filled, measuring up to 5 cm diameter. There is a focal transition point seen in the anterior abdomen on image #176. The distal small bowel is decompressed, and findings are consistent with a high-grade bowel obstruction. There is interloop fluid and mild infiltration in the surrounding mesentery. No focally thick- walled bowel loops are identified. There is no pneumatosis intestinalis or portal venous gas. There is fecalization above the transition point. There is moderate colonic fecal retention. Peritoneum: No intraperitoneal free air is identified. There is trace free fluid in the pelvis. Lymphadenopathy: None. Pelvic viscera: The bladder is mildly distended and contains intraluminal gas. The uterus is surgically absent. No adnexal lesion is seen. Skeletal structures: The skeletal structures are osteopenic. There is mild to moderate lumbosacral spondylosis. No lytic or blastic lesions are seen. There are numerous subacute-appearing bilateral rib fractures. There is degenerative sclerosis of the sacroiliac joints and pubic symphysis. IMPRESSION: 1. High-grade small bowel obstruction as above. This is likely on the basis of adhesions and clinical correlation will be required. 2. There is interloop fluid and mild infiltration of the surrounding mesentery. 3. There is no pneumatosis intestinalis or portal venous gas. No focally thick- walled bowel loops are identified and there is no intraperitoneal free air. 4. Trace free fluid in the pelvis is likely reactive. 5. Moderate hiatal hernia. 6. Gas within the bladder lumen is nonspecific and likely related to instrumentation. Correlate with clinical findings and urinalysis. 7. Additional findings as above. ACT 112: Negative or not required by law. Electronically signed by: Scott Kim M.D. 05/27/2023 12:59 PM Dictated: 05/27/23 1248 Transcribed: 05/27/23 1248 Results Complete Blood Count Results: RBC 4.06 M/uL (4.20-5.40) L 05/27/23 WBC 4.75 K/ul (4.8-10.8) L 05/27/23 Hgb 12.7 g/dl (12.0-16.0) 05/27/23 Hct 36.8 % (37.0-47.0) L 05/27/23 Plt Count 164 K/uL (130-400) 05/27/23 Results CMP Results: Na 135 mmol/L (136-145) L 05/27/23 K 3.9 mmol/L (3.5-5.1) 05/27/23 Cl 95 mmol/L (98-107) L 05/27/23 CO2 31 mmol/L (21-32) 05/27/23 Anion Gap 9 (3-11) 05/27/23 BUN 28 mg/dl (6-23) H 05/27/23 Creatinine 1.57 mg/dl (0.6-1.2) H 05/27/23 Estimated GFR ( Amer) 37.3 ml/min 05/27/23 Estimated GFR (Non-Af Amer) 32.1 ml/min 05/27/23 BUN/Creatinine Ratio 17.8 (10-20) 05/27/23 Glu 122 mg/dl (70-99(Fasting)) H 05/27/23 Ca 9.5 mg/dl (8.6-10.3) 05/27/23 Total Bilirubin 1.4 mg/dl (0.2-1.0) H 05/27/23 Direct Bilirubin 0.2 mg/dl (0-0.2) 08/14/21 AST 23 U/L (13-39) 05/27/23 ALT 15 U/L (7-52) 05/27/23 Alkaline Phosphatase 39 U/L (34-104) 05/27/23 TP 6.9 gm/dl (6.0-8.3) 05/27/23 Albumin 4.0 gm/dl (3.4-5.0) 05/27/23 Globulin 2.9 gm/dl (2.5-4.0) 05/27/23 Albumin/Globulin Ratio 1.4 (0.9-2) 05/27/23 PG Care Time/CCT Total # of Minutes Spent Total Time Spent with Patient: Total time spent is greater than 50% in coordination of care (as documented) at patient's floor/unit and/or counseling patient: Coding Level of Care Code 35212 INT INP/OBS CARE MIN Diagnoses SBO (small bowel obstruction) K56.609
--- NOTE | 2023-05-27 16:32 | XRay Report ---
KUB HISTORY: Status post placement of a G-tube Post-NG tube placement COMPARISON: CT of same day FINDINGS: Distal tip of enteric tube projects over the mid upper abdomen, likely within the stomach. Fecal retention with constipation. Mildly dilated air-filled loops of small bowel again noted. Right abdominal surgical clips. No renal calculi. No ureteral calculi. No pneumoperitoneum or pneumatosis. No fracture. IMPRESSION: 1. Distal tip of enteric tube projects over the expected location of the gastric body. 2. Suggested constipation with persistent small bowel obstruction, better seen on the comparison CT s tudy. ACT 112: Negative or not required by law. The above report was generated using voice recognition software. It may contain grammatical, syntax o r spelling errors. Electronically signed by: Og Shafer M.D. 05/27/2023 4:30 PM
--- NOTE | 2023-05-27 17:24 | XRay Report ---
KUB CLINICAL HISTORY: Enteric tube placement. FINDINGS: An AP, portable, semierect view of the lower chest and upper abdomen is compared to studies performed earlier the same day 05/27/2023. An enteric tube is in place. The tip projects below the ashley phragm over the proximal stomach. Mildly distended and gas-filled loops of small bowel are seen in th e upper abdomen. Surgical clips are seen in the right mid abdomen. No evidence of intraperitoneal dae e air is seen below the diaphragm. The lung bases are clear as imaged. A 12 mm peripherally calcified splenic artery aneurysm is seen in left upper quadrant. The visualized skeletal structures are osteo penic and appear intact. IMPRESSION: An enteric tube has been placed as above. Electronically signed by: Scott Kim M.D. 05/27/2023 5:23 PM
[2023-05-27] MEDS: AZELASTINE HCL 0.1% NASAL 200 SPRAYS/27,400 MCG BTL SCH (21:01)
[2023-05-27] MEDS: HEPARIN SOD 5,000 UNIT/0.5 ML VIAL SQ SCH (21:01)
[2023-05-27] MEDS: FLUTICASONE PROPIONATE NA SPR 16 GM BTL SCH (21:01)
[2023-05-27] MEDS: ACETAMINOPHEN 1,000 MG/100 ML VIAL IV PRN (22:29)
[2023-05-27] MEDS ORDERED: ACETAMINOPHEN 1,000 MG/100 ML VIAL IV PRN (23:03)
[2023-05-28] MEDS: LACTATED RINGER'S 1,000 ML IV SCH ×3 (01:22→22:28)
[2023-05-28] MEDS ORDERED: KETOROLAC TROMETHAMINE 15 MG/ML VIAL IV ONE (05:19)
[2023-05-28 07:26] LABS: Basophils # (auto) 0.02 K/uL (0.00-0.20); Basophils % (auto) 0.5 %; Eosinophils # (auto) 0.06 K/uL (0.00-0.50); Eosinophils % (auto) 1.4 %; Hematocrit (blood only) 33.6 % (37.0-47.0); Hemoglobin 11.7 g/dl (12.0-16.0); Immature Granulocytes # (auto) 0.01 K/uL (0.01-0.20); Immature Granulocytes % (auto) 0.2 %; Lymphocytes # (auto) 1.02 K/uL (1.20-3.40); Lymphocytes % (auto) 24.1 %; Mean Corpuscular Hemoglobin 31.5 pg (25.0-34.0); Mean Corpuscular Hgb Conc 34.8 g/dL (32.0-36.0); Mean Corpuscular Volume 90.3 fL (80.0-100.0); Mean Platelet Volume 10.3 fL (9.4-12.4); Monocytes # (auto) 0.53 K/uL (0.11-0.59); Monocytes % (auto) 12.5 %; Neutrophils % (auto) 61.3 %; Platelet Count 157 K/uL (130-400); RDW Standard Deviation 39.8 fL (36.4-46.3); Red Blood Count 3.72 M/uL (4.20-5.40); White Blood Count 4.24 K/ul (4.8-10.8)
[2023-05-28 07:51] LABS: BUN Creatinine Ratio 17.8 (10-20); C Reactive Protein 6.24 mg/dl (0-0.5); Calcium 8.9 mg/dl (8.6-10.3); Creatinine Clr Calc Pharmacy 49.2 ml/min; Est GFR (African American) 59.2 ml/min; Est GFR (Non-African American) 51.1 ml/min; Potassium 3.9 mmol/L (3.5-5.1)
[2023-05-28] MEDS: AZELASTINE HCL 0.1% NASAL 200 SPRAYS/27,400 MCG BTL SCH ×2 (10:43→20:09)
[2023-05-28] MEDS: HEPARIN SOD 5,000 UNIT/0.5 ML VIAL SQ SCH ×2 (10:44→20:09)
[2023-05-28] MEDS: BETAMETHASONE DIP AUG (DIPROLENE) 0.05% CR 15 GM TUBE EXT SCH (10:44)
[2023-05-28] MEDS: ACETAMINOPHEN 1,000 MG/100 ML VIAL IV PRN ×2 (10:52→20:13)
--- NOTE | 2023-05-28 13:32 | Surgery Progress Note ---
Date of Service May 28, 2023 Assessment & Plan (1) SBO (small bowel obstruction): Plan: Still with evidence for obstructive signs/symptoms. She remains afebrile, HD stable without leukocytosis. Continue NPO/IVF hydration, add D5 to avoid hypoglycemia Recommend Protonix IV for GI ppx Monitor NGT for good function. Use a 60cc syringe to gently flush the sump portion of the tube with air. Encourage ambulation Will f/u in the am Admission and Anticipated Discharge Date Admission Date: May 27, 2023 Subjective Patient seen and examined this am. She denies F/C, N/V. States abdominal pain feels decreased except she now has epigastric pain which she did not note initially. Notes NGT seems to be moving very slowly and having trouble pulling fluid all of the way to the cannister. Denies passing flatus. Physical Exam Constitutional: average body habitus; not ill appearing, not disheveled, not in distress and not diaphoretic Respiratory: normal respiratory effort; no respiratory distress, no labored breathing and does not use accessory muscles Gastrointestinal (Abdomen): Abdomen is soft with minimal TTP centrally. NGT appears to be trying to pull on low intermittent wall suction. There is dark effluent and evidence for coffee grounds. The sump portion of the tube has fluid in it which is supposed to be dry to allow the tube to receive air to keep the tube from suctioning on the stomach lining. 200cc were recorded o/n Results & Data Vital Signs (Past 12 Hours) Vital Signs Temp Pulse Resp BP Pulse Ox O2 Del Method 05/28/23 07:07 36.7 C 84 16 147/67 H 95 Room Air PG Care Time/CCT Total # of Minutes Spent Total Time Spent with Patient: Total time spent is greater than 50% in coordination of care (as documented) at patient's floor/unit and/or counseling patient: Coding Level of Care Code 01285 SUB INP/OBS CARE 06/16MIN Diagnoses SBO (small bowel obstruction) K56.609
--- NOTE | 2023-05-28 17:15 | Hospitalist Progress Note ---
Date of Service May 28, 2023 Assessment & Plan (1) SBO (small bowel obstruction): Plan: Nausea, vomiting, and right-sided abdominal pain that began on Tuesday 1/ Hx of recurrent adhesion SBOs since 2009 (ruptured small intestine at [facility] in 2009; due to a prior hysterectomy) Abdomen/pelvic CT revealed high-grade small bowel obstruction; no pneumatosis intestinalis or intraperitoneal free air, Lactate normal NG tube placed and draining Passed flatus today, no pain or nausea Continue NPO status Appreciate Surgery consult Continue IVFs (2) [place] (acute kidney injury): Plan: BUN 28, creatinine 1.57 (baseline 1.06) on admission, likely prerenal from N/V [employer]ing [employer] now improved to normal with IVFs continue IVFs holding lisinopril (3) Urinary incontinence: Plan: Abdomen/pelvic CT revealed gas within the bladder lumen likely from recent botox injection UA negative Hold tolterodine PureWick (4) Allergic rhinitis: Plan: Continue home nasal sprays (5) Essential (primary) hypertension: Plan: Hold lisinopril for now BPs acceptable can give IV hydralazine if SBP>180 (6) Chronic depression: Plan: Hold fluoxetine and buproprion while nPO (7) Trigeminal neuralgia: Plan: Hold baclofen, gabapentin can take IV tylenol prn pain (8) Hypothyroidism: Plan: Hold levothyroxine if goes more than 3 days NPO, can give IV (9) Psoriasis: Plan: Continue betamethasone cream, calcipotriene (10) Right rib fracture: Plan: Patient fell > 2 months ago in the bathroom Outpatient CXR on 03/31/2023 noted an acute minimally displaced right anterolateral ninth rib fracture She is still having some tenderness to palpation at this time (11) Mild sleep apnea: Plan: Patient denies using CPAP, or supplemental oxygen at night Plan VTE PPx: Heparin 5000u SQ q12h Dispo-continued stay med/surg Admission and Anticipated Discharge Date Admission Date: May 27, 2023 Subjective Having a headache from her [place] as she is not getting her usual home meds. Has left knee pain and usually uses voltaren gel. Also having lower back pain from the hospital bed-requests heating pad Passed flatus today, no BM No abd pain Physical Exam Constitutional: WD/WN, vitals as above Respiratory: normal respiratory effort, lungs clear to auscultation Cardiovascular: RRR, no murmur, no edema Gastrointestinal (Abdomen): Inspection/Auscultation: + hypoactive bowel sounds; abdomen not distended Percussion/Palpation: + abdomen tender (mild on right side, no guarding or rebound) and abdomen soft Musculoskeletal: Extremities: extremities normal to inspection Psychiatric: A+Ox3, euthymic affect Results & Data Results & Data Vital Signs (Past 12 Hours) Vital Signs Temp Pulse Resp BP Pulse Ox O2 Del Method 05/28/23 07:07 36.7 C 84 16 147/67 H 95 Room Air Laboratory Results CBC, BMP, CRP reviewed PG Care Time/CCT Total # of Minutes Spent Total Time Spent with Patient: Total time spent is greater than 50% in coordination of care (as documented) at patient's floor/unit and/or counseling patient: Coding Level of Care Code 12745 SUB INP/OBS CARE 2/35MIN Diagnoses SBO (small bowel obstruction) K56.609 [place] (acute kidney injury) N17.9 Urinary incontinence R32 Allergic rhinitis J30.9 Essential (primary) hypertension I10 Chronic depression F32.9 Trigeminal neuralgia G50.0 Hypothyroidism E03.9 Psoriasis L40.9 Right rib fracture S22.31XA Mild sleep apnea G47.30
[2023-05-28] MEDS: DICLOFENAC SOD 1% GEL 100 GM TUBE EXT SCH ×2 (19:08→20:08)
[2023-05-28] MEDS: FLUTICASONE PROPIONATE NA SPR 16 GM BTL SCH (20:09)
[2023-05-29] MEDS ORDERED: LORazepam 0.25 MG in SYRINGE 0.125 ML IV STA (03:59)
[2023-05-29 07:09] LABS: Basophils # (auto) 0.01 K/uL (0.00-0.20); Basophils % (auto) 0.2 %; Eosinophils # (auto) 0.01 K/uL (0.00-0.50); Eosinophils % (auto) 0.2 %; Hematocrit (blood only) 35.5 % (37.0-47.0); Immature Granulocytes # (auto) 0.02 K/uL (0.01-0.20); Immature Granulocytes % (auto) 0.4 %; Lymphocytes # (auto) 0.69 K/uL (1.20-3.40); Lymphocytes % (auto) 14.3 %; Mean Corpuscular Hgb Conc 33.8 g/dL (32.0-36.0); Mean Corpuscular Volume 91.7 fL (80.0-100.0); Mean Platelet Volume 10.3 fL (9.4-12.4); Monocytes # (auto) 0.42 K/uL (0.11-0.59); Monocytes % (auto) 8.7 %; Neutrophils # (auto) 3.69 K/uL (1.40-6.50); Neutrophils % (auto) 76.2 %; Platelet Count 179 K/uL (130-400); RDW Standard Deviation 40.6 fL (36.4-46.3); Red Blood Count 3.87 M/uL (4.20-5.40); White Blood Count 4.84 K/ul (4.8-10.8)
[2023-05-29 07:30] LABS: Calcium 8.6 mg/dl (8.6-10.3); Creatinine Clr Calc Pharmacy 62.7 ml/min; Est GFR (African American) 79.4 ml/min; Est GFR (Non-African American) 68.5 ml/min; Magnesium 1.8 mg/dl (1.7-2.4); Phosphorus 2.1 mg/dl (2.5-4.9); Potassium 3.7 mmol/L (3.5-5.1)
[2023-05-29] MEDS ORDERED: POTASSIUM PHOS 3 MMOL/1 ML INFUSION IV STA (08:22)
--- NOTE | 2023-05-29 08:34 | Surgery Progress Note ---
Date of Service May 29, 2023 Assessment & Plan (1) SBO (small bowel obstruction): Plan: SBO. Afebrile, HD stable. No development of leukocytosis. Still not passing flatus. Continue with conservative management Please ambulate in the [place] today with assistance. Please add D5 to IVF/start maintenance fluids Hold DVT ppx while NGT is showing evidence for bleeding PPI had not been added. I discussed with the patient to see if maybe there was a contraindication to Protonix she had that was discussed with her admitting team. She says this is not the case. I have ordered Protonix IV BID Admission and Anticipated Discharge Date Admission Date: May 27, 2023 Subjective Patient seen and examined this am. Denies N/V, abdominal pain and has not passes flatus. She did have a dark brown solid stool this am. Patient still has not ambulated. She c/o being weak. Physical Exam Constitutional: average body habitus and healthy appearing; not in distress and not diaphoretic NGT with bloody drainage Respiratory: normal respiratory effort; no respiratory distress, no labored breathing and does not use accessory muscles Gastrointestinal (Abdomen): abdomen is soft, non tender, non-distended. no rebound or guarding Psychiatric: Orientation: alert and oriented x 3; not guarded Results & Data Vital Signs (Past 12 Hours) Vital Signs Temp Pulse Resp BP Pulse Ox O2 Del Method 05/29/23 07:09 36.8 C 87 16 173/78 H 97 Room Air 05/28/23 20:38 36.8 C 74 16 156/82 H 96 Room Air PG Care Time/CCT Total # of Minutes Spent Total Time Spent with Patient: Total time spent is greater than 50% in coordination of care (as documented) at patient's floor/unit and/or counseling patient: Coding [place] [address] SUB INP/OBS CARE 25MIN Patient Type Established History Problem Focused Exam Expanded Problem Focused Medical Decision Making Low Complexity Diagnoses SBO (small bowel obstruction) K56.609
[2023-05-29] MEDS ORDERED: POTASSIUM PHOSPHATE 15 MMOL in SODIUM CHLORIDE 0.9% 250 ML IV ONE (08:45)
[2023-05-29] MEDS: LACTATED RINGER'S 1,000 ML IV SCH (09:00)
[2023-05-29] MEDS: FLUTICASONE PROPIONATE NA SPR 16 GM BTL SCH ×2 (09:06→20:17)
[2023-05-29] MEDS: AZELASTINE HCL 0.1% NASAL 200 SPRAYS/27,400 MCG BTL SCH ×2 (09:06→20:18)
[2023-05-29] MEDS: DICLOFENAC SOD 1% GEL 100 GM TUBE EXT SCH ×4 (09:07→20:18)
[2023-05-29] MEDS: BETAMETHASONE DIP AUG (DIPROLENE) 0.05% CR 15 GM TUBE EXT SCH (09:07)
[2023-05-29] MEDS: PANTOprazole 40 MG in SYRINGE 0 ML IV SCH ×2 (10:53→20:17)
[2023-05-29] MEDS: HEPARIN SOD 5,000 UNIT/0.5 ML VIAL SQ SCH (10:53)
[2023-05-29] MEDS: D5W AND LACTATED RINGERS 1,000 ML IV SCH ×2 (11:38→20:17)
--- NOTE | 2023-05-29 13:58 | Hospitalist Progress Note ---
Date of Service May 29, 2023 Assessment & Plan (1) SBO (small bowel obstruction): Plan: Nausea, vomiting, and right-sided abdominal pain that began on Tuesday/ Hx of recurrent adhesion SBOs since 2009 (ruptured small intestine at [facility] in 2009; due to a prior hysterectomy) Abdomen/pelvic CT revealed high-grade small bowel obstruction; no pneumatosis intestinalis or intraperitoneal free air, Lactate normal NG tube placed and draining some possible coffee-ground material Passed flatus on 05/28, and had 3 bowel movements on the morning of 05/29-no pain or nausea Surgery would like her to continue on NPO status Change fluids to D5 LR at 100 MLS per hour for hydration while n.p.o. Add Protonix 40 Mg IV once daily Hopefully can advance diet to clear liquids on 05/30 Follow CBC, BMP, magnesium, phosphorus and replace electrolytes as needed-give potassium phosphorus today (2) [place] (acute kidney injury): Plan: BUN 28, creatinine 1.57 (baseline 1.06) on admission, likely prerenal from N/V Delivery Analyst now improved to normal with IVFs continue IVFs Continue holding lisinopril (3) Acute encephalopathy: Plan: Patient with visual hallucinations, some paranoia in the last 24 hours Likely hospital delirium in the setting of n.p.o. status and electrolyte abnormalities Would avoid benzodiazepines in the future Patient is agreeable to IM Zyprexa if needed on the evening of 05/29 Supportive care, promote good sleep-wake cycles, keep blinds open during the day, etc. (4) Urinary incontinence: Plan: Abdomen/pelvic CT revealed gas within the bladder lumen likely from recent botox injection UA negative Hold tolterodine (5) Allergic rhinitis: Plan: Continue home nasal sprays (6) Essential (primary) hypertension: Plan: Hold lisinopril for now BPs are rising can give IV hydralazine if SBP>180 (7) Chronic depression: Plan: Hold fluoxetine and buproprion while nPO, but hopefully can restart these soon (8) Trigeminal neuralgia: Plan: Hold baclofen, gabapentin, but hopefully can restart the soon as she may begin to have withdrawal from gabapentin can take IV tylenol prn pain (9) Hypothyroidism: Plan: Hold levothyroxine if goes more than 3 days NPO, can give IV (10) Psoriasis: Plan: Continue betamethasone cream, calcipotriene (11) Right rib fracture: Plan: Patient fell > 2 months ago in the bathroom Outpatient CXR on 03/31/2023 noted an acute minimally displaced right anterolateral ninth rib fracture She is still having some tenderness to palpation at this time (12) Mild sleep apnea: Plan: Patient denies using CPAP, or supplemental oxygen at night Plan VTE PPx: Heparin 5000u SQ q12h will now be placed on hold as per surgeon's wishes due to possible coffee-ground's in NG tube. Will add SCDs Encouraged ambulation. Nurses aide will clamp her tube with nursing and walk around the hallways Dispo-continued stay med/surg Admission and Anticipated Discharge Date Admission Date: May 27, 2023 Subjective Patient was reported to be fairly agitated last night and having anxiety, hallucinations. She asks me today "do you know about the subliminals?" When I ask her for clarification she describes that she is having visual hallucinations since last night all around the room and on the blinds inside the window of animals and different colored shapes. She knows that they are visions only she is seeing. She did not sleep well at all. She received 1 dose of IV Ativan but this did not seem to do anything and she is tired today. Patient also reports that she is feeling like several of the nurses and nurses aides are plotting against her. She denies any abdominal pain but reports that she is feeling hunger pains. She did have 3 bowel movements this morning. Her NG tube is putting out some and it is dark brown in color. The surgeon is concerned about bleeding and wanted her SQ heparin stopped and started IV Protonix Physical Exam Constitutional: WD/WN, vitals as above Respiratory: normal respiratory effort, lungs clear to auscultation Cardiovascular: RRR, no murmur, no edema Gastrointestinal (Abdomen): Inspection/Auscultation: abdomen not distended Percussion/Palpation: abdomen soft Musculoskeletal: Extremities: extremities normal to inspection Psychiatric: A+Ox3, euthymic affect Thought Process: goal directed thought process Positive visual hallucinations Results & Data Results & Data Vital Signs (Past 12 Hours) Vital Signs Temp Pulse Resp BP Pulse Ox O2 Del Method 05/29/23 07:09 36.8 C 87 16 173/78 H 97 Room Air Laboratory Results CBC, BMP, phosphorus, magnesium reviewed PG Care Time/CCT Total # of Minutes Spent Total Time Spent with Patient: Total time spent is greater than 50% in coordination of care (as documented) at patient's floor/unit and/or counseling patient: Coding Level of Care Code 65440 SUB INP/OBS CARE 3/50MIN Diagnoses SBO (small bowel obstruction) K56.609 DALLAS (acute kidney injury) N17.9 Acute encephalopathy G93.40 Urinary incontinence R32 Allergic rhinitis J30.9 Essential (primary) hypertension I10 Chronic depression F32.9 Trigeminal neuralgia G50.0 Hypothyroidism E03.9 Psoriasis L40.9 Right rib fracture S22.31XA Mild sleep apnea G47.30
[2023-05-29] MEDS ORDERED: hydrALAZINE HCL 20 MG/ML VIAL IV PRN (20:07)
[2023-05-29] MEDS: ACETAMINOPHEN 1,000 MG/100 ML VIAL IV PRN (22:34)
[2023-05-30] MEDS: OLANZapine 10 MG/2.1 ML SDV IM PRN ×2 (02:13→22:28)
[2023-05-30 05:58] LABS: Basophils # (auto) 0.01 K/uL (0.00-0.20); Basophils % (auto) 0.2 %; Eosinophils # (auto) 0.01 K/uL (0.00-0.50); Eosinophils % (auto) 0.2 %; Hemoglobin 13.2 g/dl (12.0-16.0); Immature Granulocytes # (auto) 0.02 K/uL (0.01-0.20); Immature Granulocytes % (auto) 0.3 %; Lymphocytes % (auto) 17.6 %; Mean Corpuscular Hemoglobin 31.3 pg (25.0-34.0); Mean Corpuscular Hgb Conc 35.7 g/dL (32.0-36.0); Mean Corpuscular Volume 87.7 fL (80.0-100.0); Mean Platelet Volume 9.8 fL (9.4-12.4); Monocytes # (auto) 0.73 K/uL (0.11-0.59); Monocytes % (auto) 11.7 %; Neutrophils # (auto) 4.37 K/uL (1.40-6.50); Platelet Count 192 K/uL (130-400); RDW Standard Deviation 38.6 fL (36.4-46.3); Red Blood Count 4.22 M/uL (4.20-5.40); White Blood Count 6.24 K/ul (4.8-10.8)
[2023-05-30 06:09] LABS: BUN Creatinine Ratio 10.3 (10-20); Calcium 8.4 mg/dl (8.6-10.3); Creatinine Clr Calc Pharmacy 67.5 ml/min; Est GFR (African American) 86.8 ml/min; Est GFR (Non-African American) 74.9 ml/min; Magnesium 1.8 mg/dl (1.7-2.4); Phosphorus 2.1 mg/dl (2.5-4.9); Potassium 3.1 mmol/L (3.5-5.1)
[2023-05-30] MEDS: D5W AND LACTATED RINGERS 1,000 ML IV SCH ×2 (06:38→18:29)
[2023-05-30] MEDS: ACETAMINOPHEN 1,000 MG/100 ML VIAL IV PRN (07:25)
[2023-05-30] MEDS ORDERED: COUGH DROP (SUGAR FREE) LOZ 24 LOZ/1 BOX BUCCAL PRN (08:06)
[2023-05-30] MEDS ORDERED: CHLORASEPTIC (PHENOL) 1.4% SOLN 180 ML BTL MT PRN (08:12)
--- NOTE | 2023-05-30 08:31 | Surgery Progress Note ---
Date of Service May 30, 2023 Assessment & Plan (1) SBO (small bowel obstruction): Plan: Patient has remained HD stable and afebrile, HTN. Never developed any leukocytosis. SBO with NGT still not passing flatus. Maintain NG tube to low intermittent wall suction NPO, IVF Needs aggressive ambulation today Replete electrolytes as this may contribute to an ileus. Will see how she does today. Admission and Anticipated Discharge Date Admission Date: May 27, 2023 Subjective Patient was seen and examined this a.m. She continues to appear very comfortable does not appear to be any pain yet states she is still not passed flatus. Rebecca is very difficult to get straight answers from. In general she is denying nausea, states she had 4 BMs overnight and ambulated very little yesterday. When asked about abdominal pain after thinking for several moments she admits that she may have a little abdominal pain on her right side. Physical Exam Constitutional: healthy appearing; no acute distress, not ill appearing and not diaphoretic Respiratory: normal respiratory effort; no respiratory distress, no labored breathing and does not use accessory muscles Gastrointestinal (Abdomen): Abdomen is soft and nondistended. There is very minimal tenderness to deep palpation at the right lower quadrant involving a previous transverse surgical incision. No hernia. No peritonitis, no rebound. Voluntary guarding NGT with more of a green drainage for 600 mL overnight Musculoskeletal: No peripheral edema Results & Data Vital Signs (Past 12 Hours) Vital Signs Temp Pulse Resp BP Pulse Ox O2 Del Method 05/30/23 06:52 36.6 C 81 16 166/92 H 98 Room Air 05/30/23 02:36 80 154/84 H PG Care Time/CCT Total # of Minutes Spent Total Time Spent with Patient: Total time spent is greater than 50% in coordination of care (as documented) at patient's floor/unit and/or counseling patient: Coding Level of Care Code 46557 SUB INP/OBS CARE 06/16MIN Diagnoses SBO (small bowel obstruction) K56.609
[2023-05-30] MEDS: AZELASTINE HCL 0.1% NASAL 200 SPRAYS/27,400 MCG BTL SCH ×2 (08:55→20:18)
[2023-05-30] MEDS: DICLOFENAC SOD 1% GEL 100 GM TUBE EXT SCH ×4 (08:55→20:17)
[2023-05-30] MEDS: BETAMETHASONE DIP AUG (DIPROLENE) 0.05% CR 15 GM TUBE EXT SCH (08:55)
[2023-05-30] MEDS: PANTOprazole 40 MG in SYRINGE 0 ML IV SCH ×2 (08:56→20:18)
[2023-05-30] MEDS ORDERED: POTASSIUM PHOS 3 MMOL/1 ML INFUSION IV STA (10:45)
[2023-05-30] MEDS ORDERED: POTASSIUM PHOSPHATE 24 MMOL in SODIUM CHLORIDE 0.9% 500 ML IV ONE (11:00)
--- NOTE | 2023-05-30 12:00 | XRay Report ---
XR KUB/Abdomen 1 view CLINICAL HISTORY: SBO TECHNIQUE: 1 view of the abdomen was obtained. Comparison: None available at the time of this dictation. FINDINGS: Lung bases are unremarkable. Degenerative changes are seen in the visualized skeleton. The bowel gas pattern is nonobstructive. A moderate amount of stool is noted within the large bowel. IMPRESSION: No dilated loops of small bowel are seen. ACT 112: Negative or not required by law. Electronically signed by: Augustin Alvarez M.D. 05/30/2023 11:59 AM
--- NOTE | 2023-05-30 16:22 | Hospitalist Progress Note ---
Date of Service May 30, 2023 Assessment & Plan (1) SBO (small bowel obstruction): Plan: Appears to have resolved clinically and on KUB. NG tube has been removed. Clear liquids have been started and will be advanced as tolerated. Appreciate general surgery consultation and recommendations. (2) D[place] (acute kidney injury): Plan: Present on admission. Now resolved. Lisinopril temporarily on hold (3) Acute encephalopathy: Plan: Acute metabolic encephalopathy present on admission. Now resolved. (4) Urinary incontinence: Plan: Abdomen/pelvic CT revealed gas within the bladder lumen likely from recent botox injection. UA negative (5) Essential (primary) hypertension: Plan: Hold lisinopril for now. IV hydralazine as needed (6) Hypothyroidism: Plan: Levothyroxine has been restarted. Stable Plan Hopeful discharge to home tomorrow, May 31 Admission and Anticipated Discharge Date Admission Date: May 27, 2023 Subjective Alert and oriented. She has had several bowel movements. KUB done today, May 30, is negative for evidence of small bowel obstruction. The NG tube has been removed. She is now on clear liquids which will be advanced as tolerated. Potassium and phosphorus replacement underway. Hopefully she can go home tomorrow, May 31 Review of Systems 2 Review of Systems: Constitutional-no fever or chills ENT-no blurred vision, no double vision, no epistaxis, no sore throat Respiratory-no cough, no wheezing, no shortness of breath Cardiac-no palpitations, no chest pain, no syncope GI-no nausea, vomiting, diarrhea, melena, hematochezia -no urinary retention, no urinary incontinence, no dysuria, no hematuria Musculoskeletal-no joint pain, no muscle tenderness Skin-no bruising, no rashes, no pruritus Neuro-no isolated weakness, no paresthesia, no weakness Psych-no depression, no anxiety Physical Exam 2 Physical Exam: General-alert and oriented x3, no fevers, no chills HEENT-head atraumatic and normocephalic, pupils equal and reactive to light, extraocular muscles intact. NG tube has been removed Neck-no lymphadenopathy or thyromegaly, trachea midline Chest-clear to auscultation and percussion. No rales, wheezing or rhonchi Cardiac-regular rate and rhythm, normal S1 and S2 Abdomen-normal bowel sounds, nontender, no hepatosplenomegaly Extremities-no cyanosis, clubbing, or edema Neuro-cranial nerves II through XII intact, motor and sensory function within normal limits, strength symmetrical, no focal deficits Psych-normal affect, normal mood Results & Data Results & Data Vital Signs (Past 12 Hours) Vital Signs Temp Pulse Resp BP Pulse Ox O2 Del Method 05/30/23 14:20 36.6 C 80 16 154/76 H 99 Room Air 05/30/23 06:52 36.6 C 81 16 166/92 H 98 Room Air Laboratory Results 05/30/23 05:19 05/30/23 05:19 PG Care Time/CCT Total # of Minutes Spent Total Time Spent with Patient: Total time spent is greater than 50% in coordination of care (as documented) at patient's floor/unit and/or counseling patient: Coding Level of Care Code 15332 SUB INP/OBS CARE 3/50MIN Diagnoses SBO (small bowel obstruction) K56.609 [place] (acute kidney injury) N17.9 Acute encephalopathy G93.40 Urinary incontinence R32 Essential (primary) hypertension I10 Hypothyroidism E03.9
[2023-05-30] MEDS: LEVOTHYROXINE SODIUM 125 MCG TABLET PO SCH (16:32)
[2023-05-30] MEDS: lisinopril 20 MG TAB PO SCH (16:32)
[2023-05-30] MEDS: FLUTICASONE PROPIONATE NA SPR 16 GM BTL SCH (20:18)
[2023-05-31] MEDS: LEVOTHYROXINE SODIUM 125 MCG TABLET PO SCH (06:01)
[2023-05-31 06:16] LABS: Basophils # (auto) 0.02 K/uL (0.00-0.20); Basophils % (auto) 0.5 %; Eosinophils # (auto) 0.05 K/uL (0.00-0.50); Eosinophils % (auto) 1.2 %; Hematocrit (blood only) 33.3 % (37.0-47.0); Hemoglobin 11.8 g/dl (12.0-16.0); Immature Granulocytes # (auto) 0.01 K/uL (0.01-0.20); Immature Granulocytes % (auto) 0.2 %; Lymphocytes % (auto) 34.6 %; Mean Corpuscular Hemoglobin 31.3 pg (25.0-34.0); Mean Corpuscular Hgb Conc 35.4 g/dL (32.0-36.0); Mean Corpuscular Volume 88.3 fL (80.0-100.0); Mean Platelet Volume 9.7 fL (9.4-12.4); Monocytes # (auto) 0.42 K/uL (0.11-0.59); Monocytes % (auto) 10.4 %; Neutrophils # (auto) 2.15 K/uL (1.40-6.50); Neutrophils % (auto) 53.1 %; Platelet Count 186 K/uL (130-400); RDW Standard Deviation 38.7 fL (36.4-46.3); Red Blood Count 3.77 M/uL (4.20-5.40); White Blood Count 4.05 K/ul (4.8-10.8)
[2023-05-31 06:29] LABS: BUN Creatinine Ratio 8.5 (10-20); Creatinine Clr Calc Pharmacy 64.2 ml/min; Est GFR (African American) 81.7 ml/min; Est GFR (Non-African American) 70.5 ml/min; Phosphorus 2.5 mg/dl (2.5-4.9); Potassium 3.3 mmol/L (3.5-5.1)
--- NOTE | 2023-05-31 07:38 | Surgery Progress Note ---
Date of Service May 31, 2023 Assessment & Plan (1) SBO (small bowel obstruction): Plan: Patient presented with SBO symptoms. Was treated conservatively. Symptoms have resolved. She has remained afebrile and hemodynamically stable. The patient's NGT was removed and diet was advanced as per medicine. Surgery will sign off at this time. Please reconsult if new concerns arise Admission and Anticipated Discharge Date Admission Date: May 27, 2023 Subjective Patient was seen and examined. She states she started passing gas last night. Her NGT was removed she was started on clear liquids last night and tolerated without nausea or vomiting complaints this morning. Physical Exam Constitutional: healthy appearing; not ill appearing, not in distress and not diaphoretic Respiratory: normal respiratory effort; no respiratory distress, no labored breathing and does not use accessory muscles Cardiovascular: Rate/Rhythm: regular rate; not tachycardic Extremities: no edema Gastrointestinal (Abdomen): Soft and nontender this morning. There is no distention. No voluntary guarding. Results & Data Vital Signs (Past 12 Hours) Vital Signs Temp Pulse Resp BP Pulse Ox O2 Del Method 05/30/23 20:32 36.7 C 91 H 16 177/96 H 97 Room Air PG Care Time/CCT Total # of Minutes Spent Total Time Spent with Patient: Total time spent is greater than 50% in coordination of care (as documented) at patient's floor/unit and/or counseling patient: Coding Level of Care Code 02210 SUB INP/OBS CARE 25MIN Diagnoses SBO (small bowel obstruction) K56.609
[2023-05-31] MEDS: AZELASTINE HCL 0.1% NASAL 200 SPRAYS/27,400 MCG BTL SCH (08:12)
[2023-05-31] MEDS: lisinopril 20 MG TAB PO SCH (08:13)
[2023-05-31] MEDS: PANTOprazole 40 MG in SYRINGE 0 ML IV SCH (08:17)
[2023-05-31] MEDS: DICLOFENAC SOD 1% GEL 100 GM TUBE EXT SCH ×2 (08:18→12:46)
[2023-05-31] MEDS ORDERED: POTASSIUM CHLORIDE CRTAB 20 MEQ TABCR PO ONE (09:20)
[2023-05-31] MEDS: BETAMETHASONE DIP AUG (DIPROLENE) 0.05% CR 15 GM TUBE EXT SCH (09:29)
--- NOTE | 2023-05-31 12:57 | Discharge Summary ---
Date of Service May 31, 2023 Admission HPI Per Admitting Provider Rebecca is a pleasant 72-year-old female with PMH of recurrent SBOs, s/p hysterectomy abdominal adhesions,, trigeminal neuralgia, hypothyroidism, mixed incontinence urge and stress, psoriasis, HTN, depression, and allergic rhinitis. She presented for vomiting and abdominal pain that began on Thursday 05/25. While the abdominal pain has subsided at time of admission on 05/27, she reports that she was still vomiting this morning x5 episodes. She has not been tolerating solids or fluids over the past 3 days. She reports that she is having symptoms similar to past episodes of her recurrent SBO. Of note, patient has a history of ruptures small intestines in 2009 at [facility] due to a prior hysterectomy. She denies prior surgical intervention for taking down adhesions, and says that this may have been conservative management with NG tube. She did not take any of her morning medications. She reports no recent changes in medications, besides being on a course of ciprofloxacin since 05/21 for her Botox treatment in bladder (which she gets every 6 months). Patient also says she took Imodium on Tuesday for diarrhea. Last BM on Wednesday 05/24. No prior history of appendicitis, however her appendix was removed during prior abdominal surgery. No at home oxygen use. No sick contacts. Patient denies smoking, alcohol, and tobacco use. Patient is hypertensive at 141/73 at time of admission; vitals otherwise stable. ED Course: NSS 1000 mL Zofran 4 mg IV NG tube placement ROS: Patient endorses fatigue, right-sided GAGE (secondary to trigeminal neuralgia), abdominal cramping, nausea, vomiting, and diarrhea (resolved; on Wednesday 05/24). Patient denies fever, chills, night sweats, cough, hematemesis, CP, SOB, urinary symptoms, or blood in urine or stool. Patient denies PMH of AK, DVT/PE, CVA, or diabetes Principal Diagnosis Small bowel obstruction, acute kidney injury, hypokalemia, hypophosphatemia, acute metabolic encephalopathy Discharge Exam General-alert and oriented x3, no fevers, no chills HEENT-head atraumatic and normocephalic, pupils equal and reactive to light, extraocular muscles intact. NG tube has been removed Neck-no lymphadenopathy or thyromegaly, trachea midline Chest-clear to auscultation and percussion. No rales, wheezing or rhonchi Cardiac-regular rate and rhythm, normal S1 and S2 Abdomen-normal bowel sounds, nontender, no hepatosplenomegaly Extremities-no cyanosis, clubbing, or edema Neuro-cranial nerves II through XII intact, motor and sensory function within normal limits, strength symmetrical, no focal deficits Psych-normal affect, normal mood Discharge Data Allergies Allergy/AdvReac Type Severity Reaction Status Date / Time codeine Allergy Severe Fainting Verified 02/14/23 14:27 morphine Allergy Severe resp Verified 02/14/23 14:27 depression animal dander Allergy Intermediate CONGESTION, Verified 02/14/23 14:27 RESP ISSUES house dust mite Allergy Intermediate CONGESTION, Verified 02/14/23 14:27 RESP ISSUES meperidine Allergy Intermediate Vomiting Verified 02/14/23 14:27 pineapple Allergy Intermediate CARR[place]QUILLO LIPS Verified 02/14/23 14:27 AND FINGERS hydromorphone AdvReac Intermediate hallucinati Verified 02/14/23 14:27 ons Grass Allergy Intermediate CONGESTION, Uncoded 02/14/23 14:27 RESP ISSUES Mold Allergy Intermediate CONGESTION, Uncoded 02/14/23 14:27 RESP ISSUES Trees Allergy Intermediate CONGESTION, Uncoded 02/14/23 14:27 RESP ISSUES Consultations 05/27/23 13:07 ED Decision to Admit Stat 05/27/23 14:19 Consult General Surgery Routine Ordered Studies 05/27/23 11:11 CT abd pelvis wo con Stat Hospital Course (1) SBO (small bowel obstruction): Appears to have resolved clinically and on KUB. NG tube has been removed. Diet has been advanced from clear liquids to a solid diet now. This has been well- tolerated. Fortunately no surgery was required. Appreciate general surgery consultation and recommendations. (2) D[place] (acute kidney injury): Present on admission. Now resolved. Lisinopril was held on admission and will be restarted at discharge (3) Acute encephalopathy: Acute metabolic encephalopathy present on admission. Now resolved. (4) Urinary incontinence: Abdomen/pelvic CT revealed gas within the bladder lumen likely from recent botox injection. UA negative (5) Essential (primary) hypertension: Lisinopril was held while hospitalized. Will be restarted at discharge. (6) Hypothyroidism: Levothyroxine has been restarted. Stable Plan Home today, Araseli 9 Total Time Total Time Spent Total Time Spent (In Minutes): 45 minutes Discharge Plan Discharge Items Patient Disposition: Home - Self-Care Reason For Visit: SBO,VOMITING Discharge Diagnosis: Small bowel obstruction, hypokalemia, hypophosphatemia, acute kidney injury, acute metabolic encephalopathy Activity: Resume your previous activity Non-emergency contact: Primary Care Provider Call non-emergency contact if: your symptoms worsen Follow-up/Referrals: Graeme Guevara DO [Primary Care Provider] - 06/03/23 9:20 am Diet: Regular Addtl Attending Provider Instructions: Home medications remain the same Pending Studies at Discharge: No Stand-Alone Forms: [employer], Smoking Cessation Medications and DC Order Prescriptions: Continued fluoxetine 40 mg capsule See Rx Instructions .ROUTE .COMPLEX Qty: 90 3RF Dose Instruction: TAKE 1 CAPSULE BY MOUTH IN THE MORNING FOR DEPRESSION Rx Instructions: TAKE 1 CAPSULE BY MOUTH IN THE MORNING FOR DEPRESSION lisinopril 20 mg tablet See Rx Instructions .ROUTE .COMPLEX Qty: 90 3RF Dose Instruction: TAKE 1 TABLET BY MOUTH DAILY Rx Instructions: TAKE 1 TABLET BY MOUTH DAILY alendronate [Fosamax] 70 mg tablet 70 mg PO .weekly Qty: 12 3RF tolterodine 2 mg tablet 2 mg PO BID Qty: 60 5RF fluticasone propionate 50 mcg/actuation spray,suspension 1 spray intranasal HS 90 Days Qty: 48 3RF Rx Instructions: administer into each nostril levothyroxine 125 mcg tablet See Rx Instructions .ROUTE .COMPLEX Qty: 90 3RF Dose Instruction: TAKE 1 TABLET BY MOUTH DAILY Rx Instructions: TAKE 1 TABLET BY MOUTH DAILY ciprofloxacin HCl 500 mg tablet 500 mg PO BID 7 Days Qty: 14 0RF clotrimazole-betamethasone 1-0.05 % cream 1 applic topical .qhs Qty: 45 11RF Rx Instructions: Apply small/pea-sized amount topically before bed azelastine 137 mcg (0.1 %) aerosol,spray 1 spray intranasal BID Qty: 3 3RF Rx Instructions: Use 1 spray(s) in each nostril twice daily cholecalciferol (vitamin D3) [Vitamin D3] 2,000 unit capsule 2,000 unit PO QAM betamethasone dipropionate 0.05 % cream 1 applic TOP DAILY baclofen 20 mg tablet 20 mg PO TID 90 Days Qty: 270 3RF gabapentin 800 mg tablet 800 mg PO TID 90 Days Qty: 270 3RF Multivitamin 50 Plus Tablet 1 tab PO HS acetaminophen [Tylenol Extra Strength] 500 mg Tablet 500 mg PO Q6H PRN (Reason: Pain) calcipotriene 0.005 % cream 1 applic TOPICAL DAILY omega 4-qqs-vbu-fish oil [Fish Oil] 1,200 (144-216) mg Capsule 1 cap PO DAILY bupropion HCl 150 mg tablet sustained-release 12 hr 150 mg PO BID Rx Instructions: TAKE 1 TABLET BY MOUTH TWICE DAILY Discharge Orders: Discharge Order (Routine); Ordered 05/31/23 Ordered By: Leon Nichols Admission Data Admit Date/Time: 05/27/23 14:10 Attending Provider: Leon Nichols Admit Provider: Vladimir Mauricio Primary Care Provider: Graeme Guevara Other Providers: Vladimir Mauricio; Delonte Ward Coding Level of Care Code 83331 INP/OBS DISCH >30 MIN Diagnoses SBO (small bowel obstruction) K56.609 [place] (acute kidney injury) N17.9 Acute encephalopathy G93.40 Urinary incontinence R32 Essential (primary) hypertension I10 Hypothyroidism E03.9
== END 2023-05-31 13:40 | disposition home or self-care (01) | DRG 388 ==
LOC: ED 09:47 → EDINP 14:10 → SUATTDRO 14:10 → 3W 15:04

== ENCOUNTER 2025-02-08 11:48 | Inpatient (IN) ==
--- NOTE | 2025-01-11 11:48 | PAT Medication Instructions ---
Medication Instructions Date of Service January 11, 2025 Home Medications Medication Instructions Recorded baclofen 20 mg tablet 20 mg PO QID #360 tabs 04/10/24 gabapentin 800 mg tablet 800 mg PO TID 90 days #270 tabs 04/10/24 bupropion HCl 300 mg 24 hr tablet, 300 mg PO QAM #90 tabs 06/14/24 extended release lisinopril 20 mg tablet 20 mg PO QAM #90 tabs 11/13/24 fzrkztmwxxjc-jxpmwstz-bndgpn tablet (Multivitamin 50 Plus tablet) 1 tab PO HS cholecalciferol (vitamin D3) 50 mcg (2,000 unit) capsule (Vitamin D3) 2,000 unit PO QAM calcipotriene 0.005 % topical cream 1 applic topical DAILY omega 9-kcc-ojc-fish oil 1,200 mg (144 mg-216 mg) capsule (Fish Oil) 1 cap PO QAM betamethasone dipropionate 0.05 % topical cream 1 applic topical DAILY Skin Irritation baclofen 20 mg tablet 20 mg PO QID gabapentin 800 mg tablet 800 mg PO TID bupropion HCl 300 mg 24 hr tablet, extended release 300 mg PO QAM acetaminophen 650 mg tablet,extended release (Tylenol Arthritis Pain) 1,300 mg PO HS lisinopril 20 mg tablet 20 mg PO QAM alendronate 70 mg tablet (Fosamax) 70 mg PO WK clotrimazole-betamethasone 1 %-0.05 % topical cream 1 applic topical 2XWK fluoxetine 40 mg capsule 40 mg PO QAM levothyroxine 125 mcg tablet 125 mcg PO QAM quetiapine 50 mg tablet 50 mg PO HS Continue as directed alendronate 70 mg tablet (Fosamax) 70 mg PO WK (unless surgeon directed otherwise; also do NOT take morning of surgery) STOP taking 2 weeks before surgery omega 0-xss-kln-fish oil 1,200 mg (144 mg-216 mg) capsule (Fish Oil) 1 cap PO QAM STOP taking 24 hours before surgery calcipotriene 0.005 % topical cream 1 applic topical DAILY betamethasone dipropionate 0.05 % topical cream 1 applic topical DAILY Skin Irritation clotrimazole-betamethasone 1 %-0.05 % topical cream 1 applic topical 2XWK DO NOT take the morning of surgery cholecalciferol (vitamin D3) 50 mcg (2,000 unit) capsule (Vitamin D3) 2,000 unit PO QAM lisinopril 20 mg tablet 20 mg PO QAM Take morning of surgery With a small sip of water, OTHERWISE NOTHING TO EAT OR DRINK AFTER MIDNIGHT: baclofen 20 mg tablet 20 mg PO QID gabapentin 800 mg tablet 800 mg PO TID bupropion HCl 300 mg 24 hr tablet, extended release 300 mg PO QAM fluoxetine 40 mg capsule 40 mg PO QAM levothyroxine 125 mcg tablet 125 mcg PO QAM Take evening before surgery kikawuqkajgc-zruyvlgn-clbtzn tablet (Multivitamin 50 Plus tablet) 1 tab PO HS baclofen 20 mg tablet 20 mg PO QID gabapentin 800 mg tablet 800 mg PO TID acetaminophen 650 mg tablet,extended release (Tylenol Arthritis Pain) 1,300 mg PO HS quetiapine 50 mg tablet 50 mg PO HS Other Notes If you have any questions please call us at [phone] or [phone] or [phone] or [phone]
--- NOTE | 2025-01-17 09:30 | Anesthesiology Consultation ---
Date of Service January 17, 2025 Assessment & Plan (1) Encounter for pre-operative examination: - Infectious disease screening: Per assessment on 01/17/25- No known recent infectious disease contacts or current infectious disease symptoms. - PCP visit (01/09/25): "Patient is within acceptable medical risk for her procedure scheduled on 02/08/2025.. Situational anxiety: Ongoing issue with this patient. Deferred changes to medical regimen but will refer to psychology for counseling. Patient is advised to discuss with her insurance company to determine who her area takes her insurance and to see if she can schedule appointment on her own." - Patient was unable to void at [facility]. Per PAT tech, patient will be taking to [place] lab in near future (not sure which location). Awaiting surgeon-ordered preop UA ([place] lab, TBD). Patient otherwise acceptable risk for surgery. Chart Review Chart Review: Patient seen in Pre Admission Testing Teaching & Discussion Pre-Anesthesia Teaching/Discussion Notes: Instructed NPO after midnight before surgery,except medications with 15 cc of water. Medication instructions provided according to the [facility] guidelines. History Surgery Operation Date: 02/08/25 09:05 Proposed Procedures p L5-S1 Decompression and Fusion - Gagan Mckoy, Height/Weight Height: 5 ft 6 in Weight: 76.3 kg Allergies Allergy/AdvReac Type Severity Reaction Status Date / Time codeine Allergy Severe Fainting Verified 01/10/25 08:54 morphine Allergy Severe Respiratory Verified 01/15/25 10:36 depression animal dander Allergy Intermediate Respiratory Verified 01/15/25 10:36 issues, congestion house dust mite Allergy Intermediate Respiratory Verified 01/15/25 10:36 issues, congestion meperidine Allergy Intermediate Vomiting Verified 01/10/25 08:54 pineapple Allergy Intermediate *Raw Verified 01/15/25 10:36 pineapple*- solomon lips/fingers hydromorphone AdvReac Intermediate Hallucinati Verified 01/15/25 10:36 ons dairy Allergy Severe Lactose Uncoded 01/15/25 10:36 intolerance Grass Allergy Intermediate Respiratory Uncoded 01/15/25 10:36 issues, congestion Mold Allergy Intermediate Respiratory Uncoded 01/15/25 10:36 issues, congestion Trees Allergy Intermediate Respiratory Uncoded 01/15/25 10:36 issues, congestion Medications Home Medications Medication Instructions Recorded Confirmed Last Taken nqpaowyfdfqm-lskqeoka-gllnlt 1 tab PO HS 02/16/18 01/10/25 05/02/24 21:30 tablet (Multivitamin 50 Plus tablet) cholecalciferol (vitamin D3) 50 2,000 unit PO QAM 01/11/19 01/10/25 05/02/24 08:00 mcg (2,000 unit) capsule (Vitamin D3) calcipotriene 0.005 % topical cream 1 applic topical DAILY 08/14/21 01/10/25 05/02/24 08:00 omega 4-ygl-dzq-fish oil 1,200 mg 1 cap PO QAM 08/14/21 01/10/25 04/03/24 (144 mg-216 mg) capsule (Fish Oil) betamethasone dipropionate 0.05 % 1 applic topical DAILY Skin 01/05/22 01/10/25 05/02/24 08:00 topical cream Irritation baclofen 20 mg tablet 20 mg PO QID #360 tabs 04/10/24 01/10/25 05/03/24 08:30 gabapentin 800 mg tablet 800 mg PO TID 90 days #270 tabs 04/10/24 01/10/25 05/03/24 08:30 bupropion HCl 300 mg 24 hr tablet, 300 mg PO QAM #90 tabs 06/14/24 01/10/25 Unknown extended release acetaminophen 650 mg 1,300 mg PO HS 07/17/24 01/10/25 Unknown tablet,extended release (Tylenol Arthritis Pain) lisinopril 20 mg tablet 20 mg PO QAM #90 tabs 11/13/24 01/10/25 Unknown alendronate 70 mg tablet (Fosamax) 70 mg PO WK 01/10/25 01/10/25 Unknown clotrimazole-betamethasone 1 1 applic topical 2XWK 01/10/25 01/10/25 Unknown %-0.05 % topical cream fluoxetine 40 mg capsule 40 mg PO QAM 01/10/25 01/10/25 Unknown levothyroxine 125 mcg tablet 125 mcg PO QAM 01/10/25 01/10/25 Unknown quetiapine 50 mg tablet 50 mg PO HS 01/10/25 01/10/25 Unknown Past Medical History Medical History Abdominal adhesions Chronic, 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 Followed with [facility], stable No longer needs to f/u - only prn per patient Allergic rhinitis Anxiety Chronic back pain Inhibits long distance ambulation and has pain standing Chronic depression Contact dermatitis Occasional flares Degenerative disc disease History of thyroid cancer (1985) s/p thyroidectomy Hx SBO Multiple, most recent treated at [facility] (05/2023), no surgical intervention needed Hypertension Hypothyroidism Lactose intolerance Lumbar stenosis Lymphedema B/L feet/ankles Mild sleep apnea CPAP (does not use machine) Osteoarthritis Osteopenia Psoriasis Renal cyst Monitoring Rupture of small intestine Hx 2009- ruptured SB (due adhesions per patient) with ileostomy then reversed Trigeminal neuralgia of right side of face Upper right (V1-2 right side) Follows with neuro- per 03/2024 office visit - [place] aggravated due to insomnia- recommended to continue current meds and follow up with PCP Urine incontinence Stress incontinence and urgency Exercise / Class Metabolic Activity II 4-5 Yardwork/Stairs/Walk up hill (one FS: No CP, no SOB) Past Family History Family History Grandfather Family hx of colon cancer MATERNAL Family/Other Family hx of colon cancer MATERNAL COUSIN Other No family history of adverse response to anesthesia Denies family history of Ovarian cancer Prostate cancer Myocardial infarction Breast cancer Past Surgical History Surgical History H/O ileostomy 2009 (for 4 months with reversal) H/O left breast biopsy Benign History of anesthesia reaction Difficulty waking up History of appendectomy History of bilateral tubal ligation History of bladder surgery Bladder tack History of carpal tunnel release R/L History of cataract surgery (2017) R/L History of colonoscopy History of dilatation and curettage X3 History of endometrial ablation History of parathyroidectomy History of reversal of ileostomy (2009) History of thyroidectomy, total 1985--[place] had lymph nodes removed History of toe surgery History of tooth extraction [place] teeth extraction History of total abdominal hysterectomy and bilateral salpingo-oophorectomy Hx of cystoscopy with injection of urethral bulking agent S/P epidural steroid injection S/P small bowel resection 2009 after rupture of small intestine S/P thyroid biopsy 1986, malignant Past Anesthesia History No Family Hx of Anesthesia Complications and Other (Difficulty waking with remote surgeries; no issues with more recent surgery) History of PONV No Hx of PONV and Hx of Motion Sickness Social History Smoking Status: Never smoker Do You Dip or Chew Tobacco: No Hx Alcohol Use: No Hx Substance Use: No substance use type: does not use Review of Systems Patient denies chest pain, shortness of breath, dyspnea on exertion, fever, chills, cough, wheezing, palpitations. Physical Exam Vital Signs BP 108/64 P 80 TEMP 98.0 SP02 95%RA RESP 16 Physical Full cervical extension range of motion. Full TMJ range of motion. TMD 3 finger breaths Mallampati Score II Dentition: missing sides, several caps/crowns (sides/molars), implant (molar) Lungs: clear throughout to auscultation Cardiac: regular rate and rhythm, no murmurs noted Spine: normal Carotid arteries: negative bruit Extremities: no LE edema Lab Results Anesthesia Preop Results Results Anesthesia Widget: WBC 3.64 K/ul (4.8-10.8) L 01/17/25 Hgb 12.8 g/dl (12.0-16.0) 01/17/25 Hct 36.9 % (37.0-47.0) L 01/17/25 Plt 180 K/uL (130-400) 01/17/25 Na 136 mmol/L (136-145) 01/17/25 K 4.4 mmol/L (3.5-5.1) 01/17/25 Cl 102 mmol/L (98-107) 01/17/25 CO2 29 mmol/L (21-32) 01/17/25 BUN 27 mg/dl (6-23) H 01/17/25 Creat 1.20 mg/dl (0.6-1.2) 01/17/25 Glucose Level 80 mg/dl (70-99(Fasting)) 01/17/25 PT 10.6 Seconds (9.0-12.0) 01/17/25 PTT 25 Seconds (21-31) 01/17/25 INR 1.0 (0.9-1.1) 01/17/25 Blood Type B Negative 01/17/25 Antibody Screen NEGATIVE 01/17/25 Testing Laboratory Results Low WBC- stable/chronic; WBC 3.01 on 04/27/24 comparison labs (which were reviewed by [facility]CP at preop visit 01/09/25) Electrocardiogram Date: 08/28/25 NSR at 78bpm. "Normal ECG" Chest X-Ray Date: 04/27/24 No acute abnormality. Granulomatous changes consistent with remote infection.
[2025-02-08] MEDS ORDERED: DEXAMETHASONE SOD INJ 4 MG/ML VIAL ONE (11:50)
[2025-02-08] MEDS ORDERED: ONDANSETRON INJ 2 MG/ML 2 ML VIAL ONE (11:50)
[2025-02-08] MEDS ORDERED: LIDOCAINE 2% 2 ML VIAL/AMP(20MG/ML) INFIL ONE (11:50)
[2025-02-08] MEDS ORDERED: ROCURONIUM BROMIDE 10 MG/ML 5 ML VIAL IV ONE ×2 (11:50→13:38)
[2025-02-08] MEDS ORDERED: PROPOFOL IV EMULSION 10 MG/ML 20 ML VIAL IV ONE (11:50)
[2025-02-08] MEDS: ACETAMINOPHEN 500 MG TAB PO SCH ×2 (12:25→20:59)
[2025-02-08] MEDS: CeleBREX 200 MG CAP PO SCH (12:25)
[2025-02-08] MEDS: LR 15ML/HR IV SCH (12:25)
[2025-02-08] MEDS: GABAPENTIN 300 MG CAP PO SCH (12:26)
[2025-02-08] MEDS: LR 60ML/HR IV SCH (12:26)
--- NOTE | 2025-02-08 12:47 | History & Physical Bridge Note ---
Date of Service February 08, 2025 History & Physical Bridge Note I have examined the patient, reviewed the History & Physical and in the interval since the performance of the History & Physical I have noted the following changes of clinical significance: no changes noted
--- NOTE | 2025-02-08 12:48 | History & Physical Report ---
Date of Service February 08, 2025 Assessment & Plan (1) Lumbosacral spondylosis with radiculopathy: Plan: Decompression fusion L5-S1 History of Present Illness Chief Complaint: Back and leg pain Primary Care Provider: Graeme Guevara, DO This is a 74-year-old female who presents with chronic persistent back and leg pain after failing course of nonoperative care is here for surgical intervention. Allergies Allergy/AdvReac Type Severity Reaction Status Date / Time codeine Allergy Severe Fainting Verified 02/08/25 12:07 morphine Allergy Severe Respiratory Verified 02/08/25 12:07 depression animal dander Allergy Intermediate Respiratory Verified 02/08/25 12:07 issues, congestion house dust mite Allergy Intermediate Respiratory Verified 02/08/25 12:07 issues, congestion meperidine Allergy Intermediate Vomiting Verified 02/08/25 12:07 pineapple Allergy Intermediate *Raw Verified 02/08/25 12:07 pineapple*- solomon lips/fingers hydromorphone AdvReac Intermediate Hallucinati Verified 02/08/25 12:07 ons dairy Allergy Severe Lactose Uncoded 02/08/25 12:07 intolerance Grass Allergy Intermediate Respiratory Uncoded 02/08/25 12:07 issues, congestion Mold Allergy Intermediate Respiratory Uncoded 02/08/25 12:07 issues, congestion Trees Allergy Intermediate Respiratory Uncoded 02/08/25 12:07 issues, congestion Home Medications Medication Instructions Recorded Confirmed Type byggaawrplvj-uvxselgm-gqqxbu 1 tab PO HS 02/16/18 01/10/25 History tablet (Multivitamin 50 Plus tablet) cholecalciferol (vitamin D3) 50 2,000 unit PO QAM 01/11/19 02/08/25 History mcg (2,000 unit) capsule (Vitamin D3) calcipotriene 0.005 % topical cream 1 applic topical DAILY 08/14/21 01/10/25 History omega 5-lwp-wyy-fish oil 1,200 mg 1 cap PO QAM 08/14/21 02/08/25 History (144 mg-216 mg) capsule (Fish Oil) betamethasone dipropionate 0.05 % 1 applic topical DAILY Skin 01/05/22 01/10/25 History topical cream Irritation baclofen 20 mg tablet 20 mg PO QID #360 tabs 04/10/24 01/10/25 Rx gabapentin 800 mg tablet 800 mg PO TID 90 days #270 tabs 04/10/24 01/10/25 Rx bupropion HCl 300 mg 24 hr tablet, 300 mg PO QAM #90 tabs 06/14/24 01/10/25 Rx extended release acetaminophen 650 mg 1,300 mg PO HS 07/17/24 02/08/25 History tablet,extended release (Tylenol Arthritis Pain) lisinopril 20 mg tablet 20 mg PO QAM #90 tabs 11/13/24 02/08/25 Rx alendronate 70 mg tablet (Fosamax) 70 mg PO WK 01/10/25 02/08/25 History clotrimazole-betamethasone 1 1 applic topical 2XWK 01/10/25 01/10/25 History %-0.05 % topical cream fluoxetine 40 mg capsule 40 mg PO QAM 01/10/25 01/10/25 History levothyroxine 125 mcg tablet 125 mcg PO QAM 01/10/25 01/10/25 History quetiapine 50 mg tablet 50 mg PO HS 01/10/25 02/08/25 History Past Med/Surg History Problem List (Updated 02/08/25 @ 12:47 by Gagan Mckoy, ) Lumbosacral spondylosis with radiculopathy Situational anxiety Renal cyst (Chronic) Encounter for pre-operative examination High frequency hearing loss of both ears Poorer in right ear Lumbar radiculopathy Osteopenia after menopause Lumbar stenosis with neurogenic claudication Mixed incontinence urge and stress (Chronic) Nocturnal hypoxemia Osteoarthritis of both hands Vitamin D deficiency Trigeminal neuralgia Hormone replacement therapy (postmenopausal) Medical History Abdominal adhesions Chronic, 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 Followed with [facility], stable No longer needs to f/u - only prn per patient Allergic rhinitis Anxiety Chronic back pain Inhibits long distance ambulation and has pain standing Chronic depression Contact dermatitis Occasional flares Degenerative disc disease History of thyroid cancer (1985) s/p thyroidectomy Hx SBO Multiple, most recent treated at [facility] (05/2023), no surgical intervention needed Hypertension Hypothyroidism Lactose intolerance Lumbar stenosis Lymphedema B/L feet/ankles Mild sleep apnea CPAP (does not use machine) Osteoarthritis Osteopenia Psoriasis Renal cyst Monitoring Rupture of small intestine Hx 2009- ruptured SB (due adhesions per patient) with ileostomy then reversed Trigeminal neuralgia of right side of face Upper right (V1-2 right side) Follows with neuro- per 03/2024 office visit - [place] aggravated due to insomnia- recommended to continue current meds and follow up with PCP Urine incontinence Stress incontinence and urgency Surgical History H/O ileostomy 2009 (for 4 months with reversal) H/O left breast biopsy Benign History of anesthesia reaction Difficulty waking up History of appendectomy History of bilateral tubal ligation History of bladder surgery Bladder tack History of carpal tunnel release R/L History of cataract surgery (2017) R/L History of colonoscopy History of dilatation and curettage X3 History of endometrial ablation History of parathyroidectomy History of reversal of ileostomy (2009) History of thyroidectomy, total 1985--[place] had lymph nodes removed History of toe surgery History of tooth extraction [place] teeth extraction History of total abdominal hysterectomy and bilateral salpingo-oophorectomy Hx of cystoscopy with injection of urethral bulking agent S/P epidural steroid injection S/P small bowel resection 2009 after rupture of small intestine S/P thyroid biopsy 1985, malignant Family History Grandfather Family hx of colon cancer MATERNAL Family/Other Family hx of colon cancer MATERNAL COUSIN Other No family history of adverse response to anesthesia Denies family history of Ovarian cancer Prostate cancer Myocardial infarction Breast cancer Social History Smoking Status: Never smoker Second Hand Exposure: No (FATHER SMOKED, A CHILD ); Do You Dip or Chew Tobacco: No; Tobacco Cessation Education Requested by Patient: No Hx Alcohol Use: No Hx Substance Use: No Preferred Language: [place] Communication Ability: Effective Visual Impairment: Limited Hearing Ability: Normal 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 Required: No Beliefs That Will Affect Care: None marital status: Current Living Situation: Spouse Current Living Situation Comment: current occupational status: employed current occupation: 2 shifts/week at [employer] [facility] [employer] [facility] How many Children do You have: 2 Other Information That Helps Us Care for You: No Feels Safe at Home: Yes Safety Concerns: Feels Safe At This Time Childhood Exposure to Second-Hand Smoke: Yes Diet: regular caffeine: No during the past year weight has: remained stable Dental Care, Regularly: Yes Physical Activity Frequency: 3-4 Times per Week Seatbelt Use: always Sunscreen Use: No Assistive Devices: Glasses Physical Exam 2 Physical Exam: Patient is alert and oriented heart regular rhythm Lungs clear Results & Data Results & Data Vital Signs (Past 12 Hours) Vital Signs Temp Pulse Resp BP Pulse Ox O2 Del Method 02/08/25 12:38 36.9 C 69 18 118/89 97 Room Air
[2025-02-08] MEDS ORDERED: ATROPINE SULFATE 0.1 MG/ML 10ML SYR IV PRN (12:51)
[2025-02-08] MEDS ORDERED: ONDANSETRON INJ 2 MG/ML 2 ML VIAL IV PRN (12:51)
[2025-02-08] MEDS: BUPIVACAINE/EPINEPHRINE 0.25% 1:200,000 30 ML VIAL ONE (13:57)
[2025-02-08] MEDS: SURGICEL ABSORB HEMOSTAT 2IN X 14IN TOP ONE (13:58)
[2025-02-08] MEDS ORDERED: ePHEDrine sulfate 50 MG/5 ML SYR ONE (14:03)
[2025-02-08] MEDS: ceFAZolin 330 MG/ML 1 GM VIAL ONE (14:46)
[2025-02-08] MEDS: FLOSEAL HEMOSTATIC MATRIX 10ML TOP ONE (15:00)
--- NOTE | 2025-02-08 15:03 | Operative Report ---
Post Operative Report Pre & Post Diagnosis Operation Date: 02/08/25 13:35 Pre-Op Diagnosis: #1 lumbosacral spondylosis with radiculopathy #2 lumbar spinal stenosis Post-Op Diagnosis: Same I identified the patient and participated in the time-out.: Yes Procedure Operation Date: 02/08/25 13:35 Actual Procedures #1 lumbar decompression with bilateral facetectomies and foraminotomies L4-L5 L5-S1. #2 posterior spinal fusion L5-S1. #3 placement posterior instrumentation L5-S1 using Armas. #4 interbody fusion L5-S1. #5 placement Spira 13 x 26 mm x 2 at L5-S1. #6 placement locally harvested morselized autograft in the posterior gutters. #7 placement of Proteus combined with Koros in the posterior lateral gutters and os design in the interbody space. #8 application of versa wrap of the exposed dura. Surgeon Gagan Mckoy, Locomotive Crane Operator Helper Mahamed Mooney Estimated Blood Loss 100 Findings Consistent with Post-Op Diagnosis Specimens None Indications This is a 74-year-old female presents by much diagnosis of the failing stent to pursue nonoperative care is here for surgical invention. Description of Procedure Patient was met with identified informed consent obtained. Patient was then taken to the operative suite underwent patient placed in a prone position on the Inocente table on top of the Anshu frame. All bony prominences well-padded eyes inspected to ensure no external pressure placed upon them. This point lumbar spine was prepped and normal sterile fashion. Sharp dissection with the assistance of Bovie cautery from down to and exposing the lamina and transverse processes of L5 and the sacral ala bilaterally. From a caudal and cephalad fashion complete laminectomy of L5 was performed including bilateral medial facetectomies and foraminotomies followed by partial laminectomy of L4 with bilateral medial facetectomies to address all subarticular stenosis. Pedicle screws were then placed in L5-S1 bilaterally with assistance of fluoroscopy and the properly sized jesus placed. By way of transforaminal approach on the right discectomy of L5-S1 was performed endplates created to subcortical bleeding bone and a 13 x 26 mm Spira cage tapped into position. Then proceeded to the left transforaminal region at L5-S1. Again discectomy performed. Endplates guided to subcortically bone and a second 13 x 26 mm Spira cage tapped into position. Please note both cages were packed with os design bone graft. The rods were then compressed locked in a final position bilaterally. The transverse processes of L5 and sacral ala burred to subcortical bleeding bone. Koros combined with Proteus and local autograft placed in posterior gutters. Versa wrap placed over exposed dura. 15 round SADI drain inserted. The incision was then closed with 1 Vicryl the fascia 2-0 Vicryl subcutaneously and 4-0 Monocryl for final skin closure. Steri-Strips and sterile dressing placed. Patient waken taken to PACU stable condition. Please note Mahamed Clinton was present out the entire procedure and all the patient positioning complex portions of the surgery and final skin closure. I attest to the content of the Intraoperative Record and any orders documented therein. Any exceptions are noted below.
--- NOTE | 2025-02-08 15:51 | Fluoroscopy Report ---
FL lumbar spine 2-3V CLINICAL HISTORY: L5-S1 DECOM/FUSION COMPARISON STUDY: None FLUOROSCOPY TIME: 18 seconds FLUOROSCOPY IMAGES: 2 EXPOSURE DOSE: 18 mGy FINDINGS: Fluoroscopy was provided for L5-S1 fusion. IMPRESSION: Intraoperative fluoroscopy. ACT 112: Negative or not required by law. Electronically signed by: Milo Purcell M.D. 02/08/2025 3:50 PM
[2025-02-08] MEDS ORDERED: DO NOT ADMINISTER FLU VACCINE PRN (16:41)
[2025-02-08] MEDS ORDERED: diphenhydrAMINE Capsule 25 MG CAP PO PRN (16:41)
[2025-02-08] MEDS ORDERED: DO NOT ADMINISTER PNEUMOCOCCAL VACCINE PRN (16:41)
[2025-02-08] MEDS ORDERED: LORazepam 0.5 MG TAB PO PRN (16:41)
[2025-02-08] MEDS ORDERED: METOCLOPRAMIDE HCL INJ 5 MG/ML 2 ML VIAL IV PRN (16:41)
[2025-02-08] MEDS ORDERED: ALUMINUM/MAGNESIUM SUSP 30 ML UDC PO PRN (16:41)
[2025-02-08] MEDS ORDERED: SOD PHOSPHATE/SOD BIPHOSPHATE ENEMA 132 ML BTL PR PRN (16:41)
[2025-02-08] MEDS ORDERED: MAGNESIUM HYDROXIDE SUSP 30 ML UDC PO PRN (16:41)
[2025-02-08] MEDS ORDERED: FAMOTIDINE 20 MG TAB PO PRN (16:41)
[2025-02-08] MEDS ORDERED: NALOXONE HCL 0.4 MG/1 ML VIAL/CARP IV PRN (16:41)
[2025-02-08] MEDS ORDERED: PROMETHAZINE 12.5 MG/50.5 ML BAG IV PRN (16:41)
[2025-02-08] MEDS ORDERED: ONDANSETRON 4 MG OD TAB PO PRN (16:41)
--- NOTE | 2025-02-08 17:13 | Anesthesiology Progress Note ---
Date of Service February 08, 2025 Anesthesia Post Procedure Vital Signs Vital Signs: Temp Pulse Pulse Resp BP Pulse Ox O2 Del Method 02/08/25 17:10 36.6 C 73 16 156/66 H 99 Nasal Cannula 02/08/25 16:42 36.4 C L 72 16 151/85 H 100 Nasal Cannula 02/08/25 16:20 70 13 139/66 99 Nasal Cannula 02/08/25 16:10 36.5 C 72 15 133/59 L 100 Nasal Cannula 02/08/25 16:00 71 12 143/62 H 100 Nasal Cannula 02/08/25 15:50 73 16 134/69 100 Nasal Cannula 02/08/25 15:40 79 20 157/77 H 99 Nasal Cannula 02/08/25 15:30 79 15 143/80 H 99 Oxymask 02/08/25 15:21 36.5 C 75 16 171/78 H 100 Oxymask 02/08/25 12:38 36.9 C 69 18 118/89 97 Room Air O2 Flow Rate 02/08/25 17:10 2 02/08/25 16:42 2 02/08/25 16:20 2 02/08/25 16:10 2 02/08/25 16:00 2 02/08/25 15:50 2 02/08/25 15:40 2 02/08/25 15:30 4 02/08/25 15:21 8 02/08/25 12:38 Pain Intensity Back: Pain Intensity: 6 Transfer of Care Handoff Completed per policy Notes Mental Status: alert / awake / arousable and participated in evaluation Patient Amnestic to Procedure: Yes Nausea / Vomiting: adequately controlled Pain: adequately controlled Airway Patency, RR, SpO2: stable & adequate BP & HR: stable & adequate Hydration State: stable & adequate Anesthetic Complications: no major complications apparent and Pt Satisfied with anesthetic care
[2025-02-08] MEDS: LACTATED RINGER'S 1,000 ML IV SCH (18:01)
[2025-02-08] MEDS: BACLOFEN 20 MG TAB PO SCH (18:04)
[2025-02-08] MEDS: DOCUSATE SODIUM/SENNA 50/8.6MG TAB PO SCH (20:57)
[2025-02-08] MEDS: ACETAMINOPHEN 1,000 MG/100 ML VIAL IV PRN (20:58)
[2025-02-08] MEDS: MULTIVITAMIN TAB PO SCH (20:58)
[2025-02-08] MEDS: GABAPENTIN 800 MG TAB PO SCH (20:58)
--- NOTE | 2025-02-08 22:25 | Hospitalist Consultation ---
Date of Consultation February 08, 2025 Assessment & Plan (1) Lumbosacral spondylosis with radiculopathy: (2) Anxiety: (3) Mixed incontinence urge and stress: (4) Vitamin D deficiency: (5) Osteoarthritis of both hands: (6) Hormone replacement therapy (postmenopausal): (7) Trigeminal neuralgia: (8) Nocturnal hypoxemia: (9) Hypertension: (10) Hypothyroidism: Plan 74 year old female with PMHx that includes lumbosacral spondylosis with radiculopathy, anxiety, OA, HTN, hypothyroidism and nocturnal hypoxemia POD#0 s/p lumbosacral decompression and fusion: #Lumbosacral spondylosis with radiculopathy: POD#0 s/p lumbosacral decompression and fusion Acute pain control per primary team Continue Gabapentin 800mg QAM/1600mg QHS, baclofen 40mg BID #Anxiety: Continue bupropioin, fluoxetine, quetiapine #Hypothyroidism: Continue synthroid #HTN: Continue Lisinopril #Nocturnal hypoxemia: Supplemental O2 as needed to maintain SpO2>92% History of Present Illness Attending Physician: Gagan Mckoy DO History of Present Illness 74 year old female POD#0 s/p lumbosacral decompression and fusion, patient seen for requested hospitalist consultation. States pain well controlled. Clarified home medications - patient take Gabapentin 800mg QAM, 1600mg QHS. Takes baclofen 40mg BID. Denies shortness of breath, pain, fever/chills, chest pain. VSS. Allergies Allergy/AdvReac Type Severity Reaction Status Date / Time codeine Allergy Severe Fainting Verified 02/08/25 12:07 morphine Allergy Severe Respiratory Verified 02/08/25 12:07 depression animal dander Allergy Intermediate Respiratory Verified 02/08/25 12:07 issues, congestion house dust mite Allergy Intermediate Respiratory Verified 02/08/25 12:07 issues, congestion meperidine Allergy Intermediate Vomiting Verified 02/08/25 12:07 pineapple Allergy Intermediate *Raw Verified 02/08/25 12:07 pineapple*- solomon lips/fingers hydromorphone AdvReac Intermediate Hallucinati Verified 02/08/25 12:07 ons lactose AdvReac Unknown severe Verified 02/08/25 22:34 lactose intolerance Home Medications Medication Instructions Recorded Confirmed Type [id number] 1 tab PO HS 02/16/18 01/10/25 History tablet (Multivitamin 50 Plus tablet) cholecalciferol (vitamin D3) 50 2,000 unit PO QAM 01/11/19 02/08/25 History mcg (2,000 unit) capsule (Vitamin D3) calcipotriene 0.005 % topical cream 1 applic topical DAILY 08/14/21 01/10/25 History omega 8-anb-tst-fish oil 1,200 mg 1 cap PO QAM 08/14/21 02/08/25 History (144 mg-216 mg) capsule (Fish Oil) betamethasone dipropionate 0.05 % 1 applic topical DAILY Skin 01/05/22 01/10/25 History topical cream Irritation baclofen 20 mg tablet 20 mg PO QID #360 tabs 04/10/24 01/10/25 Rx gabapentin 800 mg tablet 800 mg PO TID 90 days #270 tabs 04/10/24 01/10/25 Rx bupropion HCl 300 mg 24 hr tablet, 300 mg PO QAM #90 tabs 06/14/24 01/10/25 Rx extended release acetaminophen 650 mg 1,300 mg PO HS 07/17/24 02/08/25 History tablet,extended release (Tylenol Arthritis Pain) lisinopril 20 mg tablet 20 mg PO QAM #90 tabs 11/13/24 02/08/25 Rx alendronate 70 mg tablet (Fosamax) 70 mg PO WK 01/10/25 02/08/25 History clotrimazole-betamethasone 1 1 applic topical 2XWK 01/10/25 01/10/25 History %-0.05 % topical cream fluoxetine 40 mg capsule 40 mg PO QAM 01/10/25 01/10/25 History levothyroxine 125 mcg tablet 125 mcg PO QAM 01/10/25 01/10/25 History quetiapine 50 mg tablet 50 mg PO HS 01/10/25 02/08/25 History Patient History Medical History Abdominal adhesions Chronic, 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 [place] [facility] [place] No longer needs to f/u - only prn per patient Allergic rhinitis Anxiety Chronic back pain Inhibits long distance ambulation and has pain standing Chronic depression Contact dermatitis Occasional flares Degenerative disc disease History of thyroid cancer (1985) s/p thyroidectomy Hx SBO Multiple, most recent treated at [facility] (05/2023), no surgical intervention needed Hypertension Hypothyroidism Lactose intolerance Lumbar stenosis Lymphedema B/L feet/ankles Mild sleep apnea CPAP (does not use machine) Osteoarthritis Osteopenia Psoriasis Renal cyst Monitoring Rupture of small intestine Hx 2009- ruptured SB (due adhesions per patient) with ileostomy then reversed Trigeminal neuralgia of right side of face Upper right (V1-2 right side) Follows with neuro- per 03/2024 office visit - TN aggravated due to insomnia- recommended to continue current meds and follow up with PCP Urine incontinence Stress incontinence and urgency Surgical History H/O ileostomy 2009 (for 4 months with reversal) H/O left breast biopsy Benign History of anesthesia reaction Difficulty waking up History of appendectomy History of bilateral tubal ligation History of bladder surgery Bladder tack History of carpal tunnel release R/L History of cataract surgery (2017) R/L History of colonoscopy History of dilatation and curettage X3 History of endometrial ablation History of parathyroidectomy History of reversal of ileostomy (2009) History of thyroidectomy, total 1985--[facility] had lymph nodes removed History of toe surgery History of tooth extraction [place] teeth extraction History of total abdominal hysterectomy and bilateral salpingo-oophorectomy Hx of cystoscopy with injection of urethral bulking agent S/P epidural steroid injection S/P small bowel resection 2009 after rupture of small intestine S/P thyroid biopsy 1986, malignant Family History Grandfather Family hx of colon cancer MATERNAL Family/Other Family hx of colon cancer MATERNAL COUSIN Other No family history of adverse response to anesthesia Denies family history of Ovarian cancer Prostate cancer Myocardial infarction Breast cancer Social History Smoking Status: Never smoker Second Hand Exposure: No (FATHER SMOKED, A CHILD ); Do You Dip or Chew Tobacco: No; Tobacco Cessation Education Requested by Patient: No Hx Alcohol Use: No Hx Substance Use: No Preferred Language: Turkmen Communication Ability: Effective Visual Impairment: Limited Hearing Ability: Normal Continuity Manager Required: No Beliefs That Will Affect Care: None marital status: Current Living Situation: Spouse Current Living Situation Comment: current occupational status: employed current occupation: 2 shifts/week [facility] [employer] [facility] [place] How many Children do You have: 2 Other Information That Helps Us Care for You: No Feels Safe at Home: Yes Safety Concerns: Feels Safe At This Time Childhood Exposure to Second-Hand Smoke: Yes Diet: regular caffeine: No during the past year weight has: remained stable Dental Care, Regularly: Yes Physical Activity Frequency: 3-4 Times per Week Seatbelt Use: always Sunscreen Use: No Assistive Devices: Glasses Review of Systems Review of Systems: as per HPI Physical Exam Physical Exam: Constitutional: no acute distress HEENT: NCAT, no conjunctival injection CV: extremities well-perfused, no LE edema Resp: no increased work of breathing GI: nondistended MSK: no gross deformities Skin: warm, dry, no rash appreciated Neuro: alert, oriented, no focal neurologic deficit appreciated Results & Data Results & Data Vital Signs (Past 12 Hours) Vital Signs Temp Pulse Pulse Resp BP Pulse Ox O2 Del Method 02/08/25 18:34 36.7 C 75 16 137/79 95 Room Air 02/08/25 17:56 36.4 C L 71 16 133/77 96 Room Air 02/08/25 17:10 36.6 C 73 16 156/66 H 99 Nasal Cannula 02/08/25 16:42 36.4 C L 72 16 151/85 H 100 Nasal Cannula 02/08/25 16:20 70 13 139/66 99 Nasal Cannula 02/08/25 16:10 36.5 C 72 15 133/59 L 100 Nasal Cannula 02/08/25 16:00 71 12 143/62 H 100 Nasal Cannula 02/08/25 15:50 73 16 134/69 100 Nasal Cannula 02/08/25 15:40 79 20 157/77 H 99 Nasal Cannula 02/08/25 15:30 79 15 143/80 H 99 Oxymask 02/08/25 15:21 36.5 C 75 16 171/78 H 100 Oxymask 02/08/25 12:38 36.9 C 69 18 118/89 97 Room Air O2 Flow Rate 02/08/25 18:34 02/08/25 17:56 02/08/25 17:10 2 02/08/25 16:42 2 02/08/25 16:20 2 02/08/25 16:10 2 02/08/25 16:00 2 02/08/25 15:50 2 02/08/25 15:40 2 02/08/25 15:30 4 02/08/25 15:21 8 02/08/25 12:38 Resident Activity Tracking Resident Involvement: Resident Care Provided Care Provided: Adult Hospital Medicine
[2025-02-09] MEDS: BACLOFEN 20 MG TAB PO ONE (00:21)
[2025-02-09] MEDS: GABAPENTIN 800 MG TAB PO ONE (00:21)
[2025-02-09] MEDS: POLYETHYLENE (MIRALAX) 17 GM PACK PO SCH (06:26)
[2025-02-09] MEDS: ONDANSETRON INJ 2 MG/ML 2 ML VIAL IV PRN (06:26)
[2025-02-09] MEDS: LEVOTHYROXINE SODIUM 125 MCG TABLET PO SCH (06:26)
[2025-02-09 06:37] LABS: Hematocrit (blood only) 26.1 % (37.0-47.0); Hemoglobin 9.4 g/dl (12.0-16.0); Immature Granulocytes # (auto) 0.02 K/uL (0.01-0.20); Immature Granulocytes % (auto) 0.4 %; Mean Corpuscular Hemoglobin 33.0 pg (25.0-34.0); Mean Corpuscular Volume 91.6 fL (80.0-100.0); Platelet Count 162 K/uL (130-400); RDW Standard Deviation 40.7 fL (36.4-46.3); Red Blood Count 2.85 M/uL (4.20-5.40); White Blood Count 5.21 K/ul (4.8-10.8)
[2025-02-09 06:50] LABS: Anion Gap 3.0 (3-11); Blood Urea Nitrogen 19.0 mg/dl (6-23); Calcium 7.7 mg/dl (8.6-10.3); Carbon Dioxide 27.0 mmol/L (21-32); Chloride 100.0 mmol/L (98-107); Creatinine Clr Calc Pharmacy 57.3 ml/min; Glucose 106.0 mg/dl (70-99(Fasting)); Potassium 4.2 mmol/L (3.5-5.1); Sodium 130.0 mmol/L (136-145)
--- NOTE | 2025-02-09 08:06 | Orthopedic Progress Note ---
Date of Service February 09, 2025 Assessment & Plan (1) Lumbosacral spondylosis with radiculopathy: Plan: At this time we will initiate physical therapy monitor SADI operatively discharge home in the next few days. Admission and Anticipated Discharge Date Admission Date: February 08, 2025 Subjective Back pain is controlled. Struggling with some nausea. Has some right lateral IT band tenderness. Physical Exam Physical Exam: Patient is in bed at this time. Neurologically intact. Results & Data Vital Signs (Past 12 Hours) Vital Signs Temp Pulse Resp BP Pulse Ox O2 Del Method 02/09/25 04:00 37.3 C 78 16 122/71 96 Room Air 02/09/25 00:38 36.7 C 83 16 95/57 L 97 Room Air
[2025-02-09] MEDS: KETOROLAC TROMETHAMINE 15 MG/ML VIAL IV ONE (08:16)
[2025-02-09] MEDS: CHOLECALCIFEROL 25 MCG (1000 UNITS) TAB PO SCH (08:17)
[2025-02-09] MEDS: dexAMETHasone 6 MG in SYRINGE 0 ML IV SCH (08:17)
[2025-02-09] MEDS: BETAMETHASONE DIP AUG (DIPROLENE) 0.05% CR 15 GM TUBE EXT SCH (08:19)
--- NOTE | 2025-02-09 15:23 | Hospitalist Progress Note ---
Date of Service February 09, 2025 Assessment & Plan (1) Nocturnal hypoxemia: (2) Anxiety: (3) Mild sleep apnea: (4) Hypothyroidism: Plan (1) Lumbosacral spondylosis with radiculopathy: (2) Anxiety: (3) Mixed incontinence urge and stress: (4) Vitamin D deficiency: (5) Osteoarthritis of both hands: (6) Hormone replacement therapy (postmenopausal): (7) Trigeminal neuralgia: (8) Nocturnal hypoxemia: (9) Hypertension: (10) Hypothyroidism: Plan 74 year old female with PMHx that includes lumbosacral spondylosis with radiculopathy, anxiety, OA, HTN, hypothyroidism and nocturnal hypoxemia POD#1 s/p lumbosacral decompression and fusion: #Lumbosacral spondylosis with radiculopathy: POD#1 s/p lumbosacral decompression and fusion Acute pain control per primary team Continue Gabapentin 800mg QAM/1600mg QHS, baclofen 40mg BID -doing well, progressing as expected #Postoperative anemia -Hg adequate at 9.4. Tolerating well. May benefit from oral iron supplement #Anxiety: Continue bupropion, fluoxetine, quetiapine -controlled #Hypothyroidism: Continue synthroid #HTN: Continue Lisinopril #Nocturnal hypoxemia: Supplemental O2 as needed to maintain SpO2>92% We will sign off but do not hesitate to call me if questions or concerns arise Admission and Anticipated Discharge Date Admission Date: February 08, 2025 Samy Fernandez is doing very well postop. Postop back pain has been up and down, has some pain radiating down both legs. Usually just the right She has been up and walking, no coker, eating. No shortness of breath or chest pain. Physical Exam 2 Physical Exam: Last 24h vitals reviewed GEN: no acute distress, lying on side in bed HEENT: pupils equal, sclerae anicteric, moist MM RESP: normal WOB, CTAB CV: reg no mrg ABD: soft/nt/nd +BT : no coker SKIN: warm and dry, no generalized rashes Back incision dressed SADI drain in place NEURO: AOx person, place, and situation. Face symmetric, speech normal, moves 4 ext spontaneously and equally Results & Data Results & Data Vital Signs (Past 12 Hours) Vital Signs Temp Pulse Resp BP BP Pulse Ox O2 Del Method 02/09/25 11:00 36.8 C 76 18 125/71 Room Air 02/09/25 08:00 Room Air 02/09/25 07:18 36.7 C 73 18 101/57 L Room Air 02/09/25 04:00 37.3 C 78 16 122/71 96 Room Air Laboratory Results 02/09/25 05:53 02/09/25 05:53 PG Care Time/CCT Total # of Minutes Spent Total Time Spent with Patient: Total time spent is greater than 50% in coordination of care (as documented) at patient's floor/unit and/or counseling patient: Coding Level of Care Code 47091 SUB INP/OBS CARE 2/35MIN Diagnoses Nocturnal hypoxemia G47.34 Anxiety F41.9 Mild sleep apnea G47.30 Hypothyroidism E03.9
[2025-02-09] MEDS: KETOROLAC TROMETHAMINE 15 MG/ML VIAL IV PRN (17:24)
[2025-02-10 08:47] LABS: Hematocrit (blood only) 25.5 % (37.0-47.0); Hemoglobin 8.6 g/dl (12.0-16.0); Mean Corpuscular Hemoglobin 31.5 pg (25.0-34.0); Mean Corpuscular Volume 93.4 fL (80.0-100.0); Platelet Count 141 K/uL (130-400); RDW Standard Deviation 42.5 fL (36.4-46.3); Red Blood Count 2.73 M/uL (4.20-5.40); White Blood Count 4.61 K/ul (4.8-10.8)
[2025-02-10 09:02] LABS: Anion Gap 4.0 (3-11); Blood Urea Nitrogen 23.0 mg/dl (6-23); Calcium 7.8 mg/dl (8.6-10.3); Carbon Dioxide 28.0 mmol/L (21-32); Chloride 98.0 mmol/L (98-107); Creatinine Clr Calc Pharmacy 47.9 ml/min; Glucose 138.0 mg/dl (70-99(Fasting)); Potassium 3.8 mmol/L (3.5-5.1); Sodium 130.0 mmol/L (136-145)
--- NOTE | 2025-02-10 09:58 | Orthopedic Progress Note ---
Date of Service February 10, 2025 Assessment & Plan (1) Lumbosacral spondylosis with radiculopathy: Plan: At this point we will continue physical therapy today. Monitor SADI output. Anticipate discharge home tomorrow. Admission and Anticipated Discharge Date Admission Date: February 08, 2025 Subjective Patient complaining of soreness this morning. Tolerated physical therapy yesterday. Physical Exam Physical Exam: Patient is currently in bed. Appears comfortable. Good strength testing. Results & Data Vital Signs (Past 12 Hours) Vital Signs Temp Pulse Resp BP BP Pulse Ox O2 Del Method 02/10/25 07:21 37.4 C 73 18 100/57 L 93 Room Air 02/10/25 00:06 36.7 C 75 16 104/55 L 92 Room Air
--- NOTE | 2025-02-10 16:05 | Hospitalist Progress Note ---
Date of Service February 10, 2025 Assessment & Plan (1) Nocturnal hypoxemia: (2) Anxiety: (3) Mild sleep apnea: (4) Hypothyroidism: Plan (1) Lumbosacral spondylosis with radiculopathy: (2) Anxiety: (3) Mixed incontinence urge and stress: (4) Vitamin D deficiency: (5) Osteoarthritis of both hands: (6) Hormone replacement therapy (postmenopausal): (7) Trigeminal neuralgia: (8) Nocturnal hypoxemia: (9) Hypertension: (10) Hypothyroidism: Plan 74 year old female with PMHx that includes lumbosacral spondylosis with radiculopathy, anxiety, OA, HTN, hypothyroidism and nocturnal hypoxemia POD#1 s/p lumbosacral decompression and fusion: #Lumbosacral spondylosis with radiculopathy: doing well postoperatively from lumbosacral decompression and fusion Acute pain control per primary team Continue Gabapentin 800mg QAM/1600mg QHS, baclofen 40mg BID -doing well, progressing as expected #Postoperative anemia -Hg has still trended down to 8.0. Tolerating well. - will benefit from oral iron every 48 hours once she is moving her bowels well. I discussed this with her today. Follow-up with primary care for resolution of anemia # hyponatremiaon my review of previous labs her sodium tends to run in the low normal range sodium 130 both today and yesterday she is euvolemic and not on any medications to provoke this therefore I think she may have some temporary SIADH related to acute surgical pain. her fluoxetine may contribute to the issue but risks of stopping it outweigh the benefits at this time Will check again in the morning if remaining stable or improved she will be suitable for discharge #Anxiety: Continue bupropion, fluoxetine, quetiapine -controlled #Hypothyroidism: Continue synthroid #HTN: Continue Lisinopril #Nocturnal hypoxemia: Supplemental O2 as needed to maintain SpO2>92% ordered BMP and CBC for a.m. Admission and Anticipated Discharge Date Admission Date: February 08, 2025 Subjective doing extremely well with her mobility and was able to go up 2 flights of stairs today with PT. She continues to have some radicular pain, her chronic pain is on the right which is actually fine, she is having pain radiating down her left buttock and thigh stopping before the knee. This is new since the surgery she has no shortness of breath cough or peripheral edema SADI her drain is still in place she reports she may be able to go home tomorrow per Dr. Mckoy Physical Exam 2 Physical Exam: Last 24h vitals reviewed GEN: no acute distress, lying in bed awake HEENT: pupils equal, sclerae anicteric, moist MM RESP: normal WOB, CTAB CV: reg no mrg ABD: soft/nt/nd +BT : no coker SKIN: warm and dry, no generalized rashes extremities warm and well-perfused no peripheral edema Back incision dressed SADI drain in place NEURO: AOx person, place, and situation. Face symmetric, speech normal, moves 4 ext spontaneously and equally Results & Data Results & Data Vital Signs (Past 12 Hours) Vital Signs Temp Pulse Resp BP Pulse Ox O2 Del Method 02/10/25 14:54 37.3 C 80 16 119/61 92 Room Air 02/10/25 07:21 37.4 C 73 18 100/57 L 93 Room Air Laboratory Results 02/10/25 08:30 02/10/25 08:30 PG Care Time/CCT Total # of Minutes Spent Total Time Spent with Patient: Total time spent is greater than 50% in coordination of care (as documented) at patient's floor/unit and/or counseling patient: Coding Level of Care Code 04582 SUB INP/OBS CARE 2/35MIN Diagnoses Nocturnal hypoxemia G47.34 Anxiety F41.9 Mild sleep apnea G47.30 Hypothyroidism E03.9
[2025-02-10 23:03] LABS: Appearance Urine Clear (Clear); Glucose Urine UA Negative (Negative)
[2025-02-11 06:43] LABS: Hematocrit (blood only) 25.7 % (37.0-47.0); Hemoglobin 8.6 g/dl (12.0-16.0); Mean Corpuscular Hemoglobin 31.4 pg (25.0-34.0); Mean Corpuscular Volume 93.8 fL (80.0-100.0); Platelet Count 122 K/uL (130-400); RDW Standard Deviation 42.9 fL (36.4-46.3); Red Blood Count 2.74 M/uL (4.20-5.40); White Blood Count 4.31 K/ul (4.8-10.8)
[2025-02-11 07:19] LABS: Anion Gap 5 (3-11); Blood Urea Nitrogen 16 mg/dl (6-23); Calcium 8.2 mg/dl (8.6-10.3); Carbon Dioxide 28 mmol/L (21-32); Chloride 102 mmol/L (98-107); Creatinine Clr Calc Pharmacy 54.2 ml/min; Glucose 125 mg/dl (70-99(Fasting)); Sodium 135 mmol/L (136-145)
[2025-02-11 07:38] VITALS: BP 124/72; PULSE 77; RESP 16; TEMP 97.7; O2SAT 93
--- NOTE | 2025-02-11 08:10 | Communication Note ---
Date of Service: February 11, 2025 Sodium improved - normal at 135 Hg stabilized - adequate at 8.5 Anticipate dc today by ortho Iron supplement - in dc instructions No further recs
[2025-02-11] MEDS: ACETAMINOPHEN 500 MG TAB PO PRN (09:45)
--- NOTE | 2025-02-11 10:08 | Discharge Summary ---
Date of Service February 11, 2025 Admission HPI Per Admitting Provider This is a 74-year-old female who presents with chronic persistent back and leg pain after failing course of nonoperative care is here for surgical intervention. Principal Diagnosis Lumbosacral spondylosis with radiculopathy Discharge Data Allergies Allergy/AdvReac Type Severity Reaction Status Date / Time codeine Allergy Severe Fainting Verified 02/08/25 12:07 morphine Allergy Severe Respiratory Verified 02/08/25 12:07 depression animal dander Allergy Intermediate Respiratory Verified 02/08/25 12:07 issues, congestion house dust mite Allergy Intermediate Respiratory Verified 02/08/25 12:07 issues, congestion meperidine Allergy Intermediate Vomiting Verified 02/08/25 12:07 pineapple Allergy Intermediate *Raw Verified 02/08/25 12:07 pineapple*- solomon lips/fingers hydromorphone AdvReac Intermediate Hallucinati Verified 02/08/25 12:07 ons lactose AdvReac Unknown severe Verified 02/08/25 22:34 lactose intolerance Consultations 02/08/25 16:41 Consult Hospitalist Routine Procedures Performed Operation Date: 02/08/25 13:35 Actual Procedures p L5-S1 Decompression and Fusion(Not Applicable) - Gagan Mckoy DO Ordered Studies 02/08/25 [place] lumbar spine 2-3V Routine Hospital Course (1) Lumbosacral spondylosis with radiculopathy: Patient underwent lumbar decompression fusion trial as well as taken to the orthopedic for postoperative. Post ablation progressed appropriately. Pain improving. Strength and neuro intact. SADI drain decreasing. Subsequent discharge home. Discharge orders instructions from the chart for further view. Total Time Total Time Spent Total Time Spent (In Minutes): 20 minutes Discharge Plan Discharge Items Patient Disposition: Home - Self-Care Reason For Visit: Lumbosacral Spondylosis with Radiculopathy, Degene Discharge Diagnosis: Lumbar spondylosis with radiculopathy Activity: As commented below Non-emergency contact: Primary Care Provider Call non-emergency contact if: you have any medication questions Follow-up/Referrals: Graeme Guevara DO [Primary Care Provider] - Diet: Regular Addtl Attending Provider Instructions: ACTIVITY RECOMMENDATIONS: SELF CARE INSTRUCTIONS AFTER THORACIC/LUMBAR FUSIONS 1. You may walk to your tolerance. It is good exercise for your legs and back. Expect some back and intermittent leg aches and pains. 2. You may perform "counter-top" level activities (make a sandwich, chas with a project, etc.). 3. No bending or lifting of more than 10 pounds or back twisting of any nature (roll like a log when turning in bed). 4. You may ride in a car for 20-30 minutes at a time. No driving until after your first visit with your doctor. 5. Frequent changes of position and restricting sitting to 30 minutes at a time will help limit the amount of back spasms and stiffness you may experience. 6. You may discontinue the use of ambulatory aids (cane, crutches, etc.) once your strength and confidence allow. 7. You may test center administrator the shower and let water strike your incision when you arrive home at least once daily. Do not take a tub bath, sit in a hot tub or go into a swimming pool until after your first recheck in the office. 8. You may resume previous diet. SPECIAL CARE INSTRUCTIONS: VERY IMPORTANT TO READ AND REVIEW A. Your surgical incision has been closed with a cosmetic suture under the skin that will dissolve in about 6 weeks. In 14 days, you can use a pair of clean scissors and cut the suture that is left outside of the skin at the ends of your incision. 1. The small skin tapes can be removed 7 days after surgery if they have not fallen off by that point. 2. You may keep the wound open to air as much as possible to promote healing after post-op day number 5 unless told otherwise by your doctor. 3. If you think the wound looks like it is becoming infected (redness or worsening drainage) and/or you are experiencing fever, chill or worsening back pain and muscle spasms, contact the office so that we may evaluate you as soon as possible. B. Complications are uncommon, but please contact us if you have any signs or symptoms of: 1. wound infection (fever higher than 102.5 degrees F, redness, separation of wound, drainage, or increasing pain from the incision) 2. blood clots in legs (pain, swelling, redness and warmth in legs) 3. urinary tract infection (fever higher than 102.5 degrees F, burning upon urination or increased frequency of urination) 4. nerve problems (inability to walk on your toes or heels, numbness, loss of bowel or bladder control) 5. any other symptoms that concern you C. Please call the office at if you have any concerns or questions about your operation or recovery. D. No smoking! Smoking drastically decreases the chance of a solid fusion. E. Do not take any anti-inflammatory medications (Indocin, Advil, Motrin, Aspirin, Naprosyn, etc.) as these may inhibit the chance of a solid fusion. Tylenol is okay to take for pain. MANAGING PAIN AFTER SPINAL SURGERY 1. Narcotic medication is intended for short-term use and will be provided for surgical pain. Surgical pain usually lasts for a period of 4-6 weeks. Narcotic medication includes Percocet, Vicodin, Darvocet, Tylenol #3 or Lortab. 2. Longer-term pain is more appropriately treated with non-narcotic medication such as Tylenol ES. 3. Muscle spasm is not appropriately treated with narcotics. Muscle relaxers such as Soma, Flexeril or Skelaxin can be used along with Tylenol ES. 4. Remember that we all live with some "aches and pains". This is not unusual or uncommon after an injury or as we get older. a. Back pain is expected and may include muscle spasms for 4 to 6 weeks after surgery. The pain should gradually improve. If the pain worsens for no apparent reason, please contact the office. b. Intermittent leg pain may also be experienced and should not be concerned about unless it worsens for no apparent reason. If so, please contact the office. 5. We will provide appropriate medication within the normal guidelines of their prescribed use. We will also be very cautious and aware of potential abuse and extended duration of patients' medication needs. a. Pain medications are for your comfort and to assist with sleep and rest so that the tissue can heal. They are not provided in order to return to normal activity and should not be used through the day. To do so or worsening pain at night can result from ongoing tissue damage and development of tolerance to the prescribed medicine. 6. Please allow 2-3 days to process refills. Prescriptions will not be mailed but must be picked up at the office. FOLLOW UP VISIT: Keep your scheduled follow-up appointment. Any questions, please call the office at . Addtl [employer] Dispatcher Provider Instructions: you have postoperative anemia and will benefit from taking an oral iron supplement every other day for about a month. Follow-up with Dr. Guevara for repeat blood count in about a month to make sure anemia is resolving. standard dose is 64 mg of elemental iron which is now available in several formulations which may be easier on your stomach. I would not start taking it until you are moving your bowels well postoperatively Your blood sodium was mildly low in the hospital this may be related to acute pain because it has been normal range in the past. Ask Dr. Guevara to repeat a chemistry panel to check your sodium level when you follow-up in the office It was a pleasure taking care of you in the hospital, Jolie Peralta MD Pending Studies at Discharge: No Stand-Alone Forms: My [facility] [employer], Smoking Cessation Medications and DC Order Prescriptions: New tramadol 50 mg tablet 50 mg PO Q6H PRN (Reason: pain, moderate) Qty: 30 0RF oxycodone 5 mg tablet 5 mg PO Q6H PRN (Reason: pain) Qty: 30 0RF Rx Instructions: Oxycodone for severe pain tramadol for moderate pain Continued acetaminophen [Tylenol Arthritis Pain] 650 mg tablet extended release 1,300 mg PO HS lisinopril 20 mg tablet 20 mg PO QAM Qty: 90 3RF Rx Instructions: TAKE 1 TABLET BY MOUTH DAILY bupropion HCl 300 mg tablet extended release 24 hr 300 mg PO QAM Qty: 90 3RF cholecalciferol (vitamin D3) [Vitamin D3] 2,000 unit capsule 2,000 unit PO QAM Patient Comments: to increase to 5,000 units for upcoming lumbar fusion per surgeon's instructions betamethasone dipropionate 0.05 % cream 1 applic TOP DAILY baclofen 20 mg tablet 20 mg PO QID Qty: 360 3RF gabapentin 800 mg tablet 800 mg PO TID 90 Days Qty: 270 3RF Multivitamin 50 Plus Tablet 1 tab PO HS calcipotriene 0.005 % cream 1 applic TOPICAL DAILY omega [id number] oil [Fish Oil] 1,200 (144-216) mg Capsule 1 cap PO QAM fluoxetine 40 mg capsule 40 mg PO QAM Rx Instructions: TAKE 1 CAPSULE BY MOUTH IN THE MORNING FOR DEPRESSION alendronate [Fosamax] 70 mg tablet 70 mg PO WK levothyroxine 125 mcg tablet 125 mcg PO QAM Rx Instructions: TAKE 1 TABLET BY MOUTH DAILY clotrimazole-betamethasone 1-0.05 % cream 1 applic topical 2XWK Rx Instructions: Apply small/pea-sized amount topically quetiapine 50 mg tablet 50 mg PO HS Discharge Orders: Discharge Order (Routine); Ordered 02/11/25 Ordered By: Gagan Mckoy Admission Data Admit Date/Time: 02/08/25 15:08 Attending Provider: Gagan Mckoy Admit Provider: Gagan Mckoy Primary Care Provider: Graeme Guevara Other Providers: [facility]; Jolie Peralta
== END 2025-02-11 13:03 | disposition home or self-care (01) | DRG 402 ==
LOC: ASU 11:48 → 3W 15:08

== ENCOUNTER 2025-02-25 11:51 | Inpatient (IN) ==
[2025-02-25 13:01] LABS: Hematocrit (blood only) 30.9 % (37.0-47.0); Hemoglobin 10.3 g/dl (12.0-16.0); Immature Granulocytes # (auto) 0.04 K/uL (0.01-0.20); Immature Granulocytes % (auto) 0.7 %; Mean Corpuscular Hemoglobin 30.7 pg (25.0-34.0); Mean Corpuscular Volume 92.2 fL (80.0-100.0); Platelet Count 420 K/uL (130-400); RDW Standard Deviation 41.9 fL (36.4-46.3); Red Blood Count 3.35 M/uL (4.20-5.40); White Blood Count 5.87 K/ul (4.8-10.8)
[2025-02-25 13:10] LABS: Appearance Urine Cloudy (Clear); Bacteria Urine Automated 4+ (None Seen); Cast Urine Automated 0-2 /lpf (0-2); Epithelial Cell Urine Auto 0-2 /hpf (0-2); Glucose Urine UA Negative (Negative); RBC Urine Automated 0-2 /hpf (0-2); WBC Urine Automated >50 /hpf (0-5)
[2025-02-25 13:20] LABS: Anion Gap 7 (3-11); Blood Urea Nitrogen 22 mg/dl (6-23); Calcium 9.1 mg/dl (8.6-10.3); Carbon Dioxide 26 mmol/L (21-32); Chloride 100 mmol/L (98-107); Glucose 102 mg/dl (70-99(Fasting)); Potassium 4.6 mmol/L (3.5-5.1); Sodium 133 mmol/L (136-145)
--- NOTE | 2025-02-25 13:53 | Emergency Department Note ---
History of Present Illness General Chief complaint: Back Injury/Pain Stated complaint: BACK PAIN, L LEG PAIN, BACK SURGERY 02/08/25 Time Seen by Provider: 02/25/25 12:05 History of Present Illness Provider complaint: Back pain bilateral leg pain Maximum Pain Intensity: 8 74-year-old female presents emergency department for back pain and bilateral leg pain. Patient states she had recent surgery done by Dr. Mckoy. She states since that she has been having increasing back pain and bilateral leg pain. Patient states the pain is so bad she loses strength and starts to fall. Patient and family member at bedside are adamant that the patient has not had any head strike or hit her head. Patient reports no headache or neck pain. She also reports urinary incontinence. Patient reports that she had a recent MRI done this weekend and was told by Dr. Mckoy's office to come to the hospital. She also reports pain in her bilateral lower extremities. No fever. Home Medications Medication Instructions Recorded Confirmed Type [id number] 1 tab PO HS 02/16/18 02/25/25 History tablet (Multivitamin 50 Plus tablet) cholecalciferol (vitamin D3) 50 2,000 unit PO QAM 01/11/19 02/25/25 History mcg (2,000 unit) capsule (Vitamin D3) calcipotriene 0.005 % topical cream 1 applic topical DAILY 08/14/21 02/25/25 History betamethasone dipropionate 0.05 % 1 applic topical DAILY PRN Skin 01/05/22 02/25/25 History topical cream Irritation bupropion HCl 300 mg 24 hr tablet, 300 mg PO QAM #90 tabs 06/14/24 02/25/25 Rx extended release acetaminophen 650 mg 1,300 mg PO HS 07/17/24 02/25/25 History tablet,extended release (Tylenol Arthritis Pain) lisinopril 20 mg tablet 20 mg PO QAM #90 tabs 11/13/24 02/25/25 Rx alendronate 70 mg tablet (Fosamax) 70 mg PO WK 01/10/25 02/25/25 History clotrimazole-betamethasone 1 1 applic topical 2XWK 01/10/25 02/25/25 History %-0.05 % topical cream fluoxetine 40 mg capsule 40 mg PO QAM 01/10/25 02/25/25 History levothyroxine 125 mcg tablet 125 mcg PO QAM 01/10/25 02/25/25 History quetiapine 50 mg tablet 50 mg PO HS 01/10/25 02/25/25 History tramadol 50 mg tablet 50 mg PO Q6H PRN pain, moderate 02/09/25 02/25/25 Rx #30 tabs baclofen 20 mg tablet 20 mg PO QID PRN MUSCLE SPASMS 02/11/25 02/25/25 History cyclobenzaprine 5 mg tablet 5 mg PO TID PRN muscle spasm 02/21/25 02/25/25 History fentanyl 12 mcg/hr transdermal 1 patch transdermal Q72H 02/21/25 02/25/25 History patch ferrous sulfate 325 mg (65 mg 325 mg PO .COMPLEX 02/21/25 02/25/25 History iron) tablet gabapentin 800 mg tablet 1,200 mg PO Q8H 02/21/25 02/25/25 History hydrocodone 10 mg-acetaminophen 1 tab PO BID PRN pain 02/21/25 02/25/25 History 325 mg tablet Allergies Allergy/AdvReac Type Severity Reaction Status Date / Time codeine Allergy Severe Fainting Verified 02/11/25 22:00 morphine Allergy Severe Respiratory Verified 02/11/25 22:00 depression animal dander Allergy Intermediate Respiratory Verified 02/11/25 22:00 issues, congestion house dust mite Allergy Intermediate Respiratory Verified 02/11/25 22:00 issues, congestion meperidine Allergy Intermediate Vomiting Verified 02/11/25 22:00 pineapple Allergy Intermediate *Raw Verified 02/11/25 22:00 pineapple*- solomon lips/fingers hydromorphone AdvReac Intermediate Hallucinati Verified 02/11/25 22:00 ons lactose AdvReac Unknown severe Verified 02/11/25 22:00 lactose intolerance Past Med/Surg History Problem List (Updated 02/25/25 @ 14:51 by Antonio Merlos LPN) Postoperative back pain (Acute) Closed compression fracture of L5 vertebra (Acute 02/25/25) Mild vertebral body compression fracture at L5. Urinary symptom or sign (Acute) Lumbosacral spondylosis with radiculopathy Situational anxiety Renal cyst (Chronic) High frequency hearing loss of both ears Poorer in right ear Lumbar radiculopathy Osteopenia after menopause Lumbar stenosis with neurogenic claudication Mixed incontinence urge and stress (Chronic) Nocturnal hypoxemia Osteoarthritis of both hands Vitamin D deficiency Trigeminal neuralgia Hormone replacement therapy (postmenopausal) Medical History Renal cyst Monitoring Anxiety Contact dermatitis Occasional flares Lactose intolerance Chronic back pain Inhibits long distance ambulation and has pain standing Urine incontinence Stress incontinence and urgency Osteopenia Lumbar stenosis Psoriasis Abdominal adhesions Chronic, 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 [place] [facility] [place] No longer needs to f/u - only prn per patient History of thyroid cancer (1985) s/p thyroidectomy Hx SBO Multiple, most recent treated at [facility] (05/2023), no surgical intervention needed Mild sleep apnea CPAP (does not use machine) Chronic depression Allergic rhinitis Osteoarthritis Degenerative disc disease Rupture of small intestine Hx 2009- ruptured SB (due adhesions per patient) with ileostomy then reversed Lymphedema B/L feet/ankles Hypothyroidism Trigeminal neuralgia of right side of face Upper right (V1-2 right side) Follows with neuro- per 03/2024 office visit - TN aggravated due to insomnia- recommended to continue current meds and follow up with PCP Hypertension Surgical History Hx of cystoscopy with injection of urethral bulking agent S/P epidural steroid injection History of reversal of ileostomy (2009) History of toe surgery History of cataract surgery (2017) R/L History of anesthesia reaction Difficulty waking up H/O left breast biopsy Benign History of endometrial ablation History of bilateral tubal ligation History of dilatation and curettage X3 History of total abdominal hysterectomy and bilateral salpingo-oophorectomy History of carpal tunnel release R/L History of bladder surgery Bladder tack History of appendectomy History of colonoscopy H/O ileostomy 2009 (for 4 months with reversal) S/P thyroid biopsy 1985, malignant History of tooth extraction [place] teeth extraction History of parathyroidectomy History of thyroidectomy, total 1985--[place] had lymph nodes removed S/P small bowel resection 2009 after rupture of small intestine Family History Grandfather Family hx of colon cancer MATERNAL Family/Other Family hx of colon cancer MATERNAL COUSIN Other No family history of adverse response to anesthesia Denies family history of Ovarian cancer Prostate cancer Myocardial infarction Breast cancer Social History Smoking Status: Never smoker Second Hand Exposure: No (FATHER SMOKED, A CHILD ); Do You Dip or Chew Tobacco: No; Hx Alcohol Use: No Hx Substance Use: No Preferred Language: Maori Communication Ability: Effective Visual Impairment: Limited Hearing Ability: Normal Hospitality Manager Required: No Beliefs That Will Affect Care: None marital status: Current Living Situation: Spouse Current Living Situation Comment: current occupational status: employed current occupation: 2 shifts/week at [employer] How many Children do You have: 2 Feels Safe at Home: Yes Childhood Exposure to Second-Hand Smoke: Yes Diet: regular caffeine: No during the past year weight has: remained stable Dental Care, Regularly: Yes Physical Activity Frequency: 3-4 Times per Week Seatbelt Use: always Sunscreen Use: No Assistive Devices: Walker Physical Exam Vital Signs Vital Signs - 24 hr 02/25/25 11:59 02/25/25 12:57 02/25/25 12:58 Temperature 37 C Temperature Source Oral Pulse Rate 101 H 86 85 Pulse Rhythm Regular Respiratory Rate 18 14 16 Respiratory Effort / Characteristics Non-Labored Respiratory Depth Normal Respiratory Pattern Regular Blood Pressure 119/67 141/85 H Blood Pressure Mean 84 103 Pulse Oximetry 100 95 97 Oxygen Delivery Method Room Air Room Air Room Air Sepsis Recent Fever Within 48 Hours No Sepsis New/Unexplained Change in Mental Status N/A Sepsis Action Taken by Nursing No Action Required Physical Exam CV: Normal rate, regular rhythm, normal heart sounds and intact distal pulses. There is no peripheral edema. Palpable radial pulses bue. PULM/CHEST: Effort normal and breath sounds normal. No respiratory distress. No stridor. no wheezes. no rales. Course Course 1205: The patient was evaluated in room D4A. A complete history and physical exam was performed 1226: Spoke with Dr. Mckoy who is aware of the patient. He states he will admit the patient. He states no need for repeat imaging of her spine. He agrees with ultrasound of bilateral lower extremities. Medical Decision Making Medical Records Attestation: I reviewed the patient's medical records. Medical records reviewed. Patient had a surgery performed on February 08, [address] Mckoy. Patient had a lumbar decompression with bilateral septotomy's and foraminotomies with posterior spinal fusion placement of posterior instrumentation interbody fusion L5-S1. Patient had an MRI of the spine performed on February 21, 2025, 4 days ago. MRI showed a mild vertebral body compression fracture at L5 with posterior postop seroma or hematoma. Laboratory Data Attestation: I reviewed the patient's lab results. 02/25/25 12:24 02/25/25 12:24 Lab Results 02/25/25 02/25/25 Range/Units 12:24 12:40 WBC 5.87 (4.8-10.8) K/ul RBC 3.35 L (4.20-5.40) M/uL Hgb 10.3 L (12.0-16.0) g/dl Hct 30.9 L (37.0-47.0) % MCV 92.2 (80.0-100.0) fL MCH 30.7 (25.0-34.0) pg MCHC 33.3 (32.0-36.0) g/dL RDW Std Deviation 41.9 (36.4-46.3) fL RDW Coeff of Reynaldo 12.4 (11.5-14.5) % Plt Count 420 H (130-400) K/uL MPV 9.2 L (9.4-12.4) fL Immature Gran % (Auto) 0.7 % Neut % (Auto) 77.7 % Lymph % (Auto) 9.7 % [place] % (Auto) 10.4 % Eos % (Auto) 1.0 % Baso % (Auto) 0.5 % Neut # (Auto) 4.56 (1.40-6.50) K/uL Lymph # (Auto) 0.57 L (1.20-3.40) K/uL [place] # (Auto) 0.61 H (0.11-0.59) K/uL Eos # (Auto) 0.06 (0.00-0.50) K/uL Baso # (Auto) 0.03 (0.00-0.20) K/uL Immature Gran # (Auto) 0.04 (0.01-0.20) K/uL Sodium 133 L (136-145) mmol/L Potassium 4.6 (3.5-5.1) mmol/L Chloride 100 (98-107) mmol/L Carbon Dioxide 26 (21-32) mmol/L Anion Gap 7 (3-11) BUN 22 (6-23) mg/dl Creatinine 0.92 (0.6-1.2) mg/dl Est Cr Clr Drug Dosing Not Reportable eGFR 64.53 BUN/Creatinine Ratio 23.9 H (10-20) Glucose 102 H (70-99(Fasting)) mg/dl Calcium 9.1 (8.6-10.3) mg/dl Urine Color Yellow Urine Appearance Cloudy A (Clear) Urine pH 6.5 (4.5-7.5) Ur Specific [place] 1.017 (1.000-1.030) Urine Protein Negative (Negative) Urine Glucose (UA) Negative (Negative) Urine Ketones Negative (Negative) Urine Blood 1+ H (Negative) Urine Nitrite Positive A (Negative) Urine Bilirubin Negative (Negative) Urine Urobilinogen Negative (Negative) Ur Leukocyte Esterase 3+ H (Negative) Urine WBC (Auto) >50 H (0-5) /hpf Urine RBC (Auto) 0-2 (0-2) /hpf U Hyaline Cast (Auto) 0-2 (0-2) /lpf U Epithel Cells (Auto) 0-2 (0-2) /hpf Urine Bacteria (Auto) 4+ H (None Seen) Urine Comment MDM Narrative 1205: The patient was evaluated in room D4A. A complete history and physical exam was performed 1226: Spoke with Dr. Mckoy who is aware of the patient. He states he will admit the patient. He states no need for repeat imaging of her spine. He agrees with ultrasound of bilateral lower extremities. Impression & Plan Closed compression fracture of L5 vertebra, Postoperative back pain Discharge Plan Visit Data Chief Complaint: Back Injury/Pain Stated Complaint: BACK PAIN, L LEG PAIN, BACK SURGERY 02/08/25 ED Provider: Lauri Dowell Discharge Problem: Closed compression fracture of L5 vertebra, Postoperative back pain Patient Disposition: Admitted As Inpatient Condition: Fair
[2025-02-25] MEDS ORDERED: ONDANSETRON 4 MG OD TAB PO PRN (14:54)
[2025-02-25] MEDS ORDERED: ONDANSETRON INJ 2 MG/ML 2 ML VIAL IV PRN (14:54)
[2025-02-25] MEDS ORDERED: METOCLOPRAMIDE HCL INJ 5 MG/ML 2 ML VIAL IV PRN (14:54)
[2025-02-25] MEDS ORDERED: MoRPHine SULFATE 4 MG/ML 1 ML CARP\\VIAL IV PRN (14:54)
[2025-02-25] MEDS ORDERED: PROMETHAZINE 12.5 MG/50.5 ML BAG IV PRN (14:54)
[2025-02-25] MEDS ORDERED: NALOXONE HCL 0.4 MG/1 ML VIAL/CARP IV PRN (14:54)
[2025-02-25] MEDS ORDERED: MoRPHine SULFATE 2 MG/ML CARP IV PRN (14:54)
--- NOTE | 2025-02-25 16:27 | Ultrasound Report ---
Clinical History: Pain Technique: Venous ultrasound evaluation was performed utilizing grayscale, color Doppler and wave form evaluation. Images were also obtained with and without compression Findings: The bilateral common femoral, superficial femoral, popliteal, and visualized calf veins demonstrate normal anechoic lumens with full compressibility. Normal flow is seen on color Doppler images. Expected waveforms were produced with augmentation maneuvers Impression: No evidence of deep venous thrombosis Electronically signed by Robert Ivory 02-25-2025 4:27 PM
[2025-02-25] MEDS: GABAPENTIN 600 MG TAB PO SCH (16:31)
[2025-02-25] MEDS: LACTATED RINGER'S 1,000 ML IV SCH (16:34)
--- NOTE | 2025-02-25 17:28 | Hospitalist Progress Note ---
Date of Service February 25, 2025 Assessment & Plan (1) Compression fracture of L5 vertebra: (2) Postoperative back pain: (3) Urinary symptom or sign: (4) Anxiety: (5) Osteopenia: (6) Hypertension: (7) Hypothyroidism: Plan #Intractable back pain and incontinenceseems to relate to nerve compression; discussed with Ortho/spine who felt that the compression fracture is leading to nerve compression leading to her symptomsthis certainly fits the clinical picture. Discussed with patient I highly doubt a urinary tract infection is causing the incontinence given how severe it is, how much it seems to track with her back pain and leg radicular symptoms, and the fact that it has been going on for quite a while with no other infectious symptoms (no dysuria, no fevers chills sweats, no leukocytosis, etc.) continue to follow, but suspect the spine approach is going to be the appropriate course of action here. #Anxietycontinue fluoxetine and Seroquel #hypertensioncontinue lisinopril; hold in a.m. assuming she is going to have spine surgery to reduce chance of [place] #hypothyroidismcontinue levothyroxine #osteopenialikely relates to the fracture causing current symptoms. Outpatient bone health workup and management. #DVT prophylaxisper orthopedics (currently SCDs) Admission and Anticipated Discharge Date Admission Date: February 25, 2025 Subjective Incontinence of urine, back pain that is about a 5 at rest and about an 8 down her left leg, buttock, back of leg and into the foot down her calf when she is standing. No dysuria, no fevers chills or sweats. Review of Systems Review of Systems: All systems reviewed & are unremarkable except as noted in HPI & below Physical Exam Physical Exam: In general she is awake and alert pleasant no distress. HEENT normocephalic atraumatic mucous membranes moist. Breathing unlabored no accessory muscle use good effort. Skin without rashes pallor or icterus. Neuro shows no distinct lateralizing signs, she does have a lot of pain when moving her left leg. She does not have muscle wasting, the pain is not reproducible. MRI noted. Results & Data Results & Data Vital Signs (Past 12 Hours) Vital Signs Temp Pulse Pulse Resp BP BP Pulse Ox 02/25/25 15:13 97.9 F 95 H 18 131/73 98 02/25/25 12:58 85 16 141/85 H 97 02/25/25 12:57 86 14 95 02/25/25 11:59 98.6 F 101 H 18 119/67 100 O2 Del Method 02/25/25 15:13 Room Air 02/25/25 12:58 Room Air 02/25/25 12:57 Room Air 02/25/25 11:59 Room Air PG Care Time/CCT Total # of Minutes Spent Total Time Spent with Patient: Total time spent is greater than 50% in coordination of care (as documented) at patient's floor/unit and/or counseling patient: Coding Level of Care Code 82443 SUB INP/OBS CARE 3/50MIN Diagnoses Compression fracture of L5 vertebra S32.050A Postoperative back pain G89.18; M54.9 Urinary symptom or sign R39.9 Anxiety F41.9 Osteopenia M85.80 Hypertension I10 Hypothyroidism E03.9
[2025-02-25] MEDS: HYDROCODONE/ACETAMOPHEN 5/325MG TAB PO PRN (19:31)
[2025-02-25] MEDS: BACLOFEN 20 MG TAB PO PRN (20:54)
[2025-02-26] MEDS: LEVOTHYROXINE SODIUM 125 MCG TABLET PO SCH (05:56)
[2025-02-26] MEDS: CHOLECALCIFEROL 25 MCG (1000 UNITS) TAB PO SCH (09:21)
[2025-02-26] MEDS: FERROUS SULFATE 325 MG TAB PO SCH (09:21)
[2025-02-26] MEDS: ACETAMINOPHEN 1,000 MG/100 ML VIAL IV PRN (09:25)
--- NOTE | 2025-02-26 10:55 | History & Physical Report ---
Date of Service February 26, 2025 Assessment & Plan (1) Compression fracture of L5 vertebra: Plan: Assessment acute compression fracture with radiculopathy. Plan at this time we are planning a decompression and extending the fusion to L4 and kyphoplasty L5 to decompress the nerves adequately and stabilize her spine. At this time her urine is demonstrating evidence of a UTI and I am not comfortable placing her at risk for an infection due to her propensity for bacteremia. This has been reviewed with the patient. This time we will postpone the procedure. Admission and Anticipated Discharge Date Admission Date: February 25, 2025 History of Present Illness Chief Complaint: Back and leg pain Primary Care Provider: Graeme Guevara, This is a 74-year-old female well-known to the presents with a decline in status predominantly with left leg pain. MRI was performed demonstrating evidence of an acute compression fracture of L5 worsening stenosis at L4-L5. She is currently requiring narcotic pain medication to manage her symptoms. She has difficulty with standing and walking. Allergies Allergy/AdvReac Type Severity Reaction Status Date / Time codeine Allergy Severe Fainting Verified 02/11/25 22:00 morphine Allergy Severe Respiratory Verified 02/11/25 22:00 depression animal dander Allergy Intermediate Respiratory Verified 02/11/25 22:00 issues, congestion house dust mite Allergy Intermediate Respiratory Verified 02/11/25 22:00 issues, congestion meperidine Allergy Intermediate Vomiting Verified 02/11/25 22:00 pineapple Allergy Intermediate *Raw Verified 02/11/25 22:00 pineapple*- solomon lips/fingers hydromorphone AdvReac Intermediate Hallucinati Verified 02/11/25 22:00 ons lactose AdvReac Unknown severe Verified 02/11/25 22:00 lactose intolerance Home Medications Medication Instructions Recorded Confirmed Type [id number] 1 tab PO HS 02/16/18 02/25/25 History tablet (Multivitamin 50 Plus tablet) cholecalciferol (vitamin D3) 50 2,000 unit PO QAM 01/11/19 02/25/25 History mcg (2,000 unit) capsule (Vitamin D3) calcipotriene 0.005 % topical cream 1 applic topical DAILY 08/14/21 02/25/25 History betamethasone dipropionate 0.05 % 1 applic topical DAILY PRN Skin 01/05/22 02/25/25 History topical cream Irritation bupropion HCl 300 mg 24 hr tablet, 300 mg PO QAM #90 tabs 06/14/24 02/25/25 Rx extended release acetaminophen 650 mg 1,300 mg PO HS 07/17/24 02/25/25 History tablet,extended release (Tylenol Arthritis Pain) lisinopril 20 mg tablet 20 mg PO QAM #90 tabs 11/13/24 02/25/25 Rx alendronate 70 mg tablet (Fosamax) 70 mg PO WK 01/10/25 02/25/25 History clotrimazole-betamethasone 1 1 applic topical 2XWK 01/10/25 02/25/25 History %-0.05 % topical cream fluoxetine 40 mg capsule 40 mg PO QAM 01/10/25 02/25/25 History levothyroxine 125 mcg tablet 125 mcg PO QAM 01/10/25 02/25/25 History quetiapine 50 mg tablet 50 mg PO HS 01/10/25 02/25/25 History tramadol 50 mg tablet 50 mg PO Q6H PRN pain, moderate 02/09/25 02/25/25 Rx #30 tabs baclofen 20 mg tablet 20 mg PO QID PRN MUSCLE SPASMS 02/11/25 02/25/25 History cyclobenzaprine 5 mg tablet 5 mg PO TID PRN muscle spasm 02/21/25 02/25/25 History fentanyl 12 mcg/hr transdermal 1 patch transdermal Q72H 02/21/25 02/25/25 History patch ferrous sulfate 325 mg (65 mg 325 mg PO .COMPLEX 02/21/25 02/25/25 History iron) tablet gabapentin 800 mg tablet 1,200 mg PO Q8H 02/21/25 02/25/25 History hydrocodone 10 mg-acetaminophen 1 tab PO BID PRN pain 02/21/25 02/25/25 History 325 mg tablet Past Med/Surg History Problem List (Updated 02/26/25 @ 00:07 by Background Daemon) Compression fracture of L5 vertebra (Acute ~02/25/25) Postoperative back pain (Acute) Closed compression fracture of L5 vertebra (Acute 02/25/25) Mild vertebral body compression fracture at L5. Lumbosacral spondylosis with radiculopathy Situational anxiety Renal cyst (Chronic) High frequency hearing loss of both ears Poorer in right ear Lumbar radiculopathy Osteopenia after menopause Lumbar stenosis with neurogenic claudication Mixed incontinence urge and stress (Chronic) Nocturnal hypoxemia Osteoarthritis of both hands Vitamin D deficiency Trigeminal neuralgia Hormone replacement therapy (postmenopausal) Medical History Renal cyst Monitoring Anxiety Contact dermatitis Occasional flares Lactose intolerance Chronic back pain Inhibits long distance ambulation and has pain standing Urine incontinence Stress incontinence and urgency Osteopenia Lumbar stenosis Psoriasis Abdominal adhesions Chronic, 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 Followed with [facility], stable No longer needs to f/u - only prn per patient History of thyroid cancer (1985) s/p thyroidectomy Hx SBO Multiple, most recent treated at [facility] (05/2023), no surgical intervention needed Mild sleep apnea CPAP (does not use machine) Chronic depression Allergic rhinitis Osteoarthritis Degenerative disc disease Rupture of small intestine Hx 2009- ruptured SB (due adhesions per patient) with ileostomy then reversed Lymphedema B/L feet/ankles Hypothyroidism Trigeminal neuralgia of right side of face Upper right (V1-2 right side) Follows with neuro- per 03/2024 office visit - TN aggravated due to insomnia- recommended to continue current meds and follow up with PCP Hypertension Surgical History Hx of cystoscopy with injection of urethral bulking agent S/P epidural steroid injection History of reversal of ileostomy (2009) History of toe surgery History of cataract surgery (2017) R/L History of anesthesia reaction Difficulty waking up H/O left breast biopsy Benign History of endometrial ablation History of bilateral tubal ligation History of dilatation and curettage X3 History of total abdominal hysterectomy and bilateral salpingo-oophorectomy History of carpal tunnel release R/L History of bladder surgery Bladder tack History of appendectomy History of colonoscopy H/O ileostomy 2009 (for 4 months with reversal) S/P thyroid biopsy 1985, malignant History of tooth extraction [place] teeth extraction History of parathyroidectomy History of thyroidectomy, total 1985--[place] had lymph nodes removed S/P small bowel resection 2009 after rupture of small intestine Family History Grandfather Family hx of colon cancer MATERNAL Family/Other Family hx of colon cancer MATERNAL COUSIN Other No family history of adverse response to anesthesia Denies family history of Ovarian cancer Prostate cancer Myocardial infarction Breast cancer Social History Smoking Status: Never smoker Second Hand Exposure: No; Do You Dip or Chew Tobacco: No; Hx Alcohol Use: No Hx Substance Use: No Preferred Language: Maori Communication Ability: Effective Visual Impairment: Limited Hearing Ability: Normal Rig Builder Required: No Beliefs That Will Affect Care: None marital status: Current Living Situation: Spouse Current Living Situation Comment: current occupational status: employed current occupation: 2 shifts/week at [employer] How many Children do You have: 2 Feels Safe at Home: Yes Childhood Exposure to Second-Hand Smoke: Yes Diet: regular caffeine: No during the past year weight has: remained stable Dental Care, Regularly: Yes Physical Activity Frequency: 3-4 Times per Week Seatbelt Use: always Sunscreen Use: No Assistive Devices: Glasses Physical Exam Physical Exam: On exam patient currently in bed she does appear comfortable. There is some tenderness palpation of the left trochanteric region. She has reasonable +5/5 plantarflexion dorsiflexion. Sensory symmetric and intact. Results & Data Results & Data Vital Signs (Past 12 Hours) Vital Signs Temp Pulse Resp BP Pulse Ox O2 Del Method 02/26/25 07:19 36.8 C 79 16 172/83 H 98 Room Air 02/25/25 23:10 36.7 C 86 14 124/75 95 Room Air Code Status & VTE Plan VTE Prophylaxis Plan VTE Prophylaxis will be ordered: Yes
[2025-02-26] MEDS: cefTRIAXone SODIUM 1,000 MG/50 ML BAG IV SCH (12:14)
--- NOTE | 2025-02-26 12:30 | Hospitalist Progress Note ---
Date of Service February 26, 2025 Assessment & Plan (1) Compression fracture of L5 vertebra: (2) Postoperative back pain: (3) Urinary symptom or sign: (4) Anxiety: (5) Osteopenia: (6) Hypertension: (7) Hypothyroidism: Plan This patient is a 74-year-old female who recently underwent lumbar spine surgery with Dr. Mckoy on 02/08/2025. She returned on 02/25 due to left knee/calf pain rating down from left hip as well as urinary incontinence and constipation. Seems to relate to nerve compression; discussed with Ortho/spine who felt that the compression fracture is leading to nerve compression leading to her symptomsthis certainly fits the clinical picture. Discussed with patient; doubtful about a urinary tract infection is causing the incontinence given how severe it is, how much it seems to track with her back pain and leg radicular symptoms, and the fact that it has been going on for quite a while with no other infectious symptoms (no dysuria, no fevers chills sweats, no leukocytosis, etc.). #Intractable back pain | urinary incontinence | Initially, plan was for L4-L5 decompression and fusion with Dr. Mckoy on 02/27 However, this procedure will be postponed due to patient demonstrating evidence of UTI; increased risk for infection/bacteremia DVT PPx, pain control, and fluids per the primary team AM CBC, BMP #UTI UA with 4+ bacteria on arrival No leukocytosis; afebrile However, preliminary urine culture drawn on 02/25 is growing E. coli; sensitivities to follow Only prior urine culture on file from 05/02/2023 grew pansensitive E. coli Continue ceftriaxone 1000 mg IV q24h Follow current UCx #Anxiety Continue fluoxetine and Seroquel #Hypertension Continue lisinopril; hold in a.m. assuming she is going to have spine surgery to reduce chance of [place] #Hypothyroidism Continue levothyroxine #Osteopenia Likely relates to the fracture causing current symptoms. Outpatient bone health workup and management. #DVT prophylaxis Per orthopedics (currently SCDs) Thank you for allowing us to precipitate in the care of this patient; please reach out any questions or concerns. Will continue to follow. Admission and Anticipated Discharge Date Admission Date: February 25, 2025 Subjective Mrs. Dexter is sitting upright in her chair this afternoon visiting with a friend. She reports that her lower back pain is a constant 5 out of 10 at this time. 8 out of 10 at worst. The pain is mainly confined to her left lower back that radiates down underneath the hip laterally all the way down into her left knee and left great toe. She characterizes it as a "constant aching pain" and occasional "burning" pain. Patient was able to get up and ambulate to the bathroom with her walker. However she feels like she is off balance, and does report she had several falls at home after being [facility] from [facility]. She feels like her left leg continues to give out on her while she walks. Patient does have a prior history of urinary tract infections. While she denies burning with urination at this time, she does feel like she has recently had an acute worsening of her urinary incontinence. Patient has had urinary continence for "years", and has a Botox injection in her bladder every 6 months for known urge/stress incontinence. Patient did have a formed bowel movement today. In regard to pain medications, she reports that she is unable to take Dilaudid or oxycodone as a lead to hallucinations. She denies any hallucinations since being in the hospital during this admission. She cannot take morphine due to it pressing her respiratory drive so bad that she has to think about taking each breath. And she is unable to take codeine due to fainting spells. Additionally, she was told she has not allowed to take NSAIDs due to history of a severe GI bleed. Even after she completed treatment for this GI bleed, she was told never to take NSAIDs again. ROS: Patient endorses sweating overnight, severe lower back pain, lower back pain shooting down the left leg, episodes of urinary continence, feeling off balance, and nausea. Patient denies fevers, lightheadedness with walking, headaches, chest pain, SOB, vomiting, diarrhea, burning with urination, saddle anesthesia, or blood in the urine or stool. Review of Systems Review of Systems: See HPI above Physical Exam Physical Exam: General: no acute distress; sitting upright in her chair; non-toxic appearing; SpO2 97% on RA HEENT: normocephalic, atraumatic; PERRLA; vision and hearing intact Neck: supple; trachea midline Skin: warm, dry without signs of tenting; no cyanosis; no rashes, bruising, lesions, or erythema noted CV: chest wall NTP; RRR; S1/S2 normal; no murmurs/rubs/gallops; pulses intact and symmetric at radial, DP, and PT Lungs: no acute respiratory distress; symmetrical chest wall expansion; clear breath sounds across all lung marie w/o adventitious sounds; no wheezing ABD: Soft, NTP; BS present; no rebound/guarding; no distention MSK: no tics or fasciculations; no edema noted in the LEs b/l, nonerythematous; 4/5 plantar and dorsiflexion in the ankles bilaterally Neuro: A&Ox3; normal mood and affect; fluent speech; patient report sensation is diminished in the left lower extremity when compared to the right assessed via light touch at the feet, ankles, and knees Results & Data Results & Data Vital Signs (Past 12 Hours) Vital Signs Temp Pulse Resp BP Pulse Ox O2 Del Method 02/26/25 07:19 36.8 C 79 16 172/83 H 98 Room Air PG Care Time/CCT Total # of Minutes Spent Total Time Spent with Patient: Total time spent is greater than 50% in coordination of care (as documented) at patient's floor/unit and/or counseling patient: Coding [place] [address] SUB INP/OBS CARE 2/35MIN Patient Type Established History Comprehensive Exam Comprehensive Medical Decision Making Moderate Complexity Diagnoses Compression fracture of L5 vertebra S32.050A Postoperative back pain G89.18; M54.9 Urinary symptom or sign R39.9 Anxiety F41.9 Osteopenia M85.80 Hypertension I10 Hypothyroidism E03.9
[2025-02-26] MEDS: POLYETHYLENE (MIRALAX) 17 GM PACK PO SCH (14:09)
[2025-02-27 06:20] LABS: Hematocrit (blood only) 29.0 % (37.0-47.0); Hemoglobin 9.7 g/dl (12.0-16.0); Mean Corpuscular Hemoglobin 30.7 pg (25.0-34.0); Mean Corpuscular Volume 91.8 fL (80.0-100.0); Platelet Count 359 K/uL (130-400); RDW Standard Deviation 41.7 fL (36.4-46.3); Red Blood Count 3.16 M/uL (4.20-5.40); White Blood Count 3.79 K/ul (4.8-10.8)
[2025-02-27 06:43] LABS: Anion Gap 6.0 (3-11); Blood Urea Nitrogen 18.0 mg/dl (6-23); Calcium 8.6 mg/dl (8.6-10.3); Carbon Dioxide 29.0 mmol/L (21-32); Chloride 100.0 mmol/L (98-107); Creatinine Clr Calc Pharmacy 51.3 ml/min; Glucose 96.0 mg/dl (70-99(Fasting)); Potassium 4.2 mmol/L (3.5-5.1); Sodium 135.0 mmol/L (136-145)
--- NOTE | 2025-02-27 09:34 | Hospitalist Progress Note ---
Date of Service February 27, 2025 Assessment & Plan (1) Postoperative back pain: (2) Compression fracture of L5 vertebra: (3) UTI (urinary tract infection): (4) Hypertension: Plan This patient is a 74-year-old female who recently underwent lumbar spine surgery with Dr. Mckoy on 02/08/2025. She returned on 02/25 due to left knee/calf pain rating down from left hip as well as urinary incontinence and constipation. Seems to relate to nerve compression; discussed with Ortho/spine who felt that the compression fracture is leading to nerve compression leading to her symptomsthis certainly fits the clinical picture. Discussed with patient; doubtful about a urinary tract infection is causing the incontinence given how severe it is, how much it seems to track with her back pain and leg radicular symptoms, and the fact that it has been going on for quite a while with no other infectious symptoms (no dysuria, no fevers chills sweats, no leukocytosis, etc.). #Intractable back pain | urinary incontinence Initially, plan was for L4-L5 decompression and fusion with Dr. Mckoy on 02/27 However, this procedure will be postponed due to patient demonstrating evidence of UTI; increased risk for infection/bacteremia DVT PPx, pain control, and fluids per the primary team AM CBC, BMP #UTI UA with 4+ bacteria on arrival No leukocytosis; afebrile Final urine culture from 02/25 grew pansensitive E. coli Continue ceftriaxone 1000 mg IV q24h #Anxiety Continue fluoxetine and Seroquel #Hypertension Continue lisinopril; hold in a.m. of surgery assuming she is going to have spine surgery to reduce chance of [place] #Hypothyroidism Continue levothyroxine #Osteopenia Likely relates to the fracture causing current symptoms. Outpatient bone health workup and management. #DVT prophylaxis Per orthopedics (currently SCDs) Thank you for allowing us to participate in the care of this patient; please reach out any questions or concerns. Will continue to follow. Admission and Anticipated Discharge Date Admission Date: February 25, 2025 Supervising Physician Co-Signing Physician Notes MOSHE Supervision Note: I did not personally see or examine the patient today, but I verified all gómez points of MOSHE Hwang's assessment and plan with the following exceptions/additions: None Subjective Mrs. Dexter is doing well this afternoon. She just finished her book while laying flat in bed. She denies any back pain, and reports that her left leg pain "feels good" after receiving tramadol approximately 1 hour ago. She denies any pain at this time while she lays still in bed. She is glad to report that she had her first BM yesterday in several days. While she has the Caceres catheter in place, she denies any burning with urination. She is unsure if she would have additional episodes of urinary incontinence once the Caceres was removed. However, with past UTIs, she has had abnormal symptoms. For instance during 1 UTI she had abdominal pain and vomiting. She has never had burning with urination in the past. Currently, she does endorse urinary frequency and urgency. ROS: Patient endorses left leg pain with movements, numbness and tingling going down both legs (but worse in the left), and increased urinary frequency/urgency. Patient denies burning with nation, fever, chest pain, SOB, abdominal pain, N/V/D, lower back pain, or saddle anesthesia. Review of Systems Review of Systems: See HPI above Physical Exam Physical Exam: General: no acute distress; laying flat in bed reading a book; non-toxic appearing; SpO2 97% on RA HEENT: normocephalic, atraumatic; PERRLA; vision and hearing intact Neck: supple; trachea midline Skin: warm, dry without signs of tenting; no cyanosis; no rashes, bruising, lesions, or erythema noted CV: chest wall NTP; RRR; S1/S2 normal; no murmurs/rubs/gallops; pulses intact and symmetric at radial, DP, and PT Lungs: no acute respiratory distress; symmetrical chest wall expansion; clear breath sounds across all lung marie w/o adventitious sounds; no wheezing ABD: Soft, NTP; BS present; no rebound/guarding; no distention Back: Lower spine is NTP; no rashes or bruises appreciated on the back or flanks bilaterally Left hip: TTP lateral hip/thigh; purple bruising on the flank just above the left acetabulum; patient demonstrates the ability to flex the left knee at 90 degrees without recurrence of pain; however, her knee is mildly TTP : Negative suprapubic tenderness; clear yellow urine draining into Caceres bag MSK: no tics or fasciculations; no edema noted in the LEs b/l, nonerythematous; 4/5 plantar and dorsiflexion in the ankles bilaterally Neuro: A&Ox3; normal mood and affect; fluent speech; patient report sensation is diminished in the left lower extremity when compared to the right assessed via light touch at the feet, ankles, and knees Results & Data Results & Data Vital Signs (Past 12 Hours) Vital Signs Temp Pulse Resp BP Pulse Ox O2 Del Method 02/27/25 08:40 36.6 C 89 16 151/77 H 97 Room Air 02/26/25 23:42 37.0 C 96 H 18 144/80 H 96 Room Air PG Care Time/CCT Total # of Minutes Spent Total Time Spent with Patient: Total time spent is greater than 50% in coordination of care (as documented) at patient's floor/unit and/or counseling patient: Coding [place] [address] SUB INP/OBS CARE 06/16MIN Patient Type Established Medical Decision Making Low Complexity Diagnoses Postoperative back pain G89.18; M54.9 Compression fracture of L5 vertebra S32.050A UTI (urinary tract infection) N39.0 Hypertension I10
--- NOTE | 2025-02-27 13:15 | Orthopedic Progress Note ---
Date of Service February 27, 2025 Assessment & Plan (1) Compression fracture of L5 vertebra: Plan: Patient's urine cultures are growing E. coli. Sensitivities pending. Discussed with her undergoing a course of antibiotic therapy for the next several days to ensure the UTI is eradicated prior to any surgical invention. We cannot risk infection. She understands agrees. In the interim initiate physical therapy for ambulation and transfers as tolerated. Ideally the Caceres would be discontinued the next day as long as she is able to mobilize to the restroom. Will plan for surgery early next week hopefully Tuesday. Admission and Anticipated Discharge Date Admission Date: February 25, 2025 Subjective Patient's pain is controlled. She is anxious to get out of bed. Physical Exam Physical Exam: On exam she has reasonable strength testing. Appears comfortable. Results & Data Vital Signs (Past 12 Hours) Vital Signs Temp Pulse Resp BP Pulse Ox O2 Del Method 02/27/25 08:40 36.6 C 89 16 151/77 H 97 Room Air
[2025-02-27] MEDS: LORazepam 0.5 MG TAB PO PRN (21:22)
[2025-02-28] MEDS: LORazepam Inj 0.5 MG in SYRINGE 0.25 ML IV PRN (01:21)
--- NOTE | 2025-02-28 08:36 | Orthopedic Progress Note ---
Date of Service February 28, 2025 Assessment & Plan (1) Compression fracture of L5 vertebra: Plan: At this point in time we are going to continue with pain control. We her focusing on resolution of her urinary tract tract infections so we can proceed with surgical intervention, revision in nature next week. Continue with pain control. All questions were answered in detail. Admission and Anticipated Discharge Date Admission Date: February 25, 2025 Samy Fernandez has complaints of her left knee buckling/giving out. This is led to multiple falls. Also has left leg pain and back pain. Currently has a urinary tract infection and is on Rocephin. No new complaints Review of Systems Review of Systems: All systems reviewed & are unremarkable except as noted in HPI & below Physical Exam Physical Exam: She seen in bed in no acute distress Alert and oriented x 3 Strength intact right lower extremity Strength unchanged left lower extremity Results & Data Vital Signs (Past 12 Hours) Vital Signs Temp Pulse Resp BP Pulse Ox O2 Del Method 02/28/25 07:02 36.4 C L 82 16 122/71 96 Room Air 02/27/25 23:24 37.2 C 93 H 16 146/77 H 95 Room Air
--- NOTE | 2025-02-28 14:14 | Hospitalist Progress Note ---
Date of Service February 28, 2025 Assessment & Plan (1) Postoperative back pain: (2) Compression fracture of L5 vertebra: (3) UTI (urinary tract infection): (4) Hypertension: Plan This patient is a 74-year-old female who recently underwent lumbar spine surgery with Dr. Mckoy on 02/08/2025. She returned on 02/25 due to left knee/calf pain rating down from left hip as well as urinary incontinence and constipation. Seems to relate to nerve compression; discussed with Ortho/spine who felt that the compression fracture is leading to nerve compression leading to her symptomsthis certainly fits the clinical picture. Discussed with patient; doubtful about a urinary tract infection is causing the incontinence given how severe it is, how much it seems to track with her back pain and leg radicular symptoms, and the fact that it has been going on for quite a while with no other infectious symptoms (no dysuria, no fevers chills sweats, no leukocytosis, etc.). #Intractable back pain | urinary incontinence Initially, plan was for L4-L5 decompression and fusion with Dr. Mckoy on 02/27 However, this procedure will be postponed due to patient demonstrating evidence of UTI; increased risk for infection/bacteremia Planned revision on the afternoon of Sunday 03/04 DVT PPx, pain control, and fluids per the primary team Periodically monitor CBC, BMP #Visual hallucinations Reported on the morning of 02/28 Patient believes it may have been due to "poor sleep" However, she does have listed allergy of hallucinations with certain opioids She reports she did fine taking hydrocodone/acetaminophen tablets prior to her arrival Will plan to d/c tramadol for now #Left knee pain Worse when bearing weight Left knee x-ray ordered, pending #UTI UA with 4+ bacteria on arrival No leukocytosis; afebrile Final urine culture from 02/25 grew pansensitive E. coli Continue ceftriaxone 1000 mg IV q24h Will plan to remove Caceres catheter on 02/28 Trial of voiding without catheter; monitor for recurrence of urinary incontinence #Anxiety Continue fluoxetine and Seroquel #Hypertension Continue lisinopril; hold in a.m. of surgery assuming she is going to have spine surgery to reduce chance of [place] #Hypothyroidism Continue levothyroxine #Osteopenia Likely relates to the fracture causing current symptoms. Outpatient bone health workup and management. #DVT prophylaxis Per orthopedics (currently SCDs) Thank you for allowing us to participate in the care of this patient; please reach out any questions or concerns. Will continue to follow. Admission and Anticipated Discharge Date Admission Date: February 25, 2025 Supervising Physician Co-Signing Physician Notes PA Supervision Note: I did not personally see or examine the patient today, but I verified all gómez points of MOSHE Hwang's assessment and plan with the following exceptions/additions: Confusion and hallucinations could also be from Ativan of which she is taking a few doses-discontinue p.o. and IV Ativan Subjective Mrs. Dexter reports she had difficulty sleeping last night. She has been using earplugs and a facemasks, but only slept for about 5 hours. She feels that this led her to feel confused this morning. She did begin having "visual hallucinations" this morning and thought she was seeing "patterns coming towards [her]". She also thought things were "moving" when they were not. She has been getting up out of bed to her chair, but reports that it is painful to bear weight on her left knee. This often leads her left leg to give out. Currently, she does not have any urinary symptoms at this time other than urinary urgency/increased frequency, but is amenable to having the Caceres removed today to trial for additional episodes of urinary incontinence. ROS: Patient endorses visual hallucinations, left hip pain treated on the leg, and left knee pain (worse when bearing weight) Patient denies chest pain, SOB, abdominal pain, lower back pain, nausea, or vomiting. Review of Systems Review of Systems: See HPI above Physical Exam Physical Exam: General: no acute distress; laying flat in bed reading a book; non-toxic appearing; SpO2 96% on RA HEENT: normocephalic, atraumatic; PERRLA; vision and hearing intact Neck: supple; trachea midline Skin: warm, dry without signs of tenting; no cyanosis; no rashes, bruising, lesions, or erythema noted CV: chest wall NTP; RRR; S1/S2 normal; no murmurs/rubs/gallops; pulses intact and symmetric at radial, DP, and PT Lungs: no acute respiratory distress; symmetrical chest wall expansion; clear breath sounds across all lung marie w/o adventitious sounds; no wheezing ABD: Soft, NTP; BS present; no rebound/guarding; no distention Back: Lower spine is NTP; no rashes or bruises appreciated on the back or flanks bilaterally Left hip: TTP lateral hip/thigh; purple bruising on the flank just above the left acetabulum; patient demonstrates the ability to flex the left knee at 90 degrees without recurrence of pain; however, her knee is mildly TTP : Negative suprapubic tenderness; clear yellow urine draining into Caceres bag MSK: no tics or fasciculations; no edema noted in the LEs b/l, nonerythematous; 4/5 plantar and dorsiflexion in the ankles bilaterally Neuro: A&Ox3; normal mood and affect; fluent speech; patient report sensation is diminished in the left lower extremity when compared to the right assessed via light touch at the feet, ankles, and knees Results & Data Results & Data Vital Signs (Past 12 Hours) Vital Signs Temp Pulse Resp BP Pulse Ox O2 Del Method 02/28/25 07:02 36.4 C L 82 16 122/71 96 Room Air PG Care Time/CCT Total # of Minutes Spent Total Time Spent with Patient: Total time spent is greater than 50% in coordination of care (as documented) at patient's floor/unit and/or counseling patient: C[place] [address] SUB INP/OBS CARE 3/50MIN Patient Type Established Medical Decision Making High Complexity Diagnoses Postoperative back pain G89.18; M54.9 Compression fracture of L5 vertebra S32.050A UTI (urinary tract infection) N39.0 Hypertension I10
--- NOTE | 2025-02-28 17:26 | XRay Report ---
EXAMINATION: X-ray knee left under 2 view routine CLINICAL HISTORY: Left knee pain status post falls at home PRIORS: 02/05/2022 TECHNIQUE: AP, lateral and crosstable lateral views of the left knee are submitted. FINDINGS: Bone stock and alignment is normal. Moderate medial compartment joint space narrowing with peaking of the tibial spine. No acute or healing fracture, soft tissue swelling or suprapatella joint effusion. An enthesophyte of the quadriceps insertion noted. PRESSION: No plain film evidence of an acute osseous abnormality. Moderate medial compartment joint space narrowing. Electronically signed by Leanna Obrien 02-28-2025 5:25 PM
[2025-02-28] MEDS: ACETAMINOPHEN 500 MG TAB PO PRN (20:32)
[2025-03-01 06:58] LABS: Hematocrit (blood only) 32.2 % (37.0-47.0); Hemoglobin 10.3 g/dl (12.0-16.0); Immature Granulocytes # (auto) 0.05 K/uL (0.01-0.20); Immature Granulocytes % (auto) 1.1 %; Mean Corpuscular Hemoglobin 29.9 pg (25.0-34.0); Mean Corpuscular Volume 93.3 fL (80.0-100.0); Platelet Count 438 K/uL (130-400); RDW Standard Deviation 42.4 fL (36.4-46.3); Red Blood Count 3.45 M/uL (4.20-5.40); White Blood Count 4.55 K/ul (4.8-10.8)
[2025-03-01 07:17] LABS: Anion Gap 6.0 (3-11); Blood Urea Nitrogen 24.0 mg/dl (6-23); Calcium 8.9 mg/dl (8.6-10.3); Carbon Dioxide 28.0 mmol/L (21-32); Chloride 99.0 mmol/L (98-107); Creatinine Clr Calc Pharmacy 56.6 ml/min; Glucose 101.0 mg/dl (70-99(Fasting)); Potassium 4.1 mmol/L (3.5-5.1); Sodium 133.0 mmol/L (136-145)
--- NOTE | 2025-03-01 07:59 | Orthopedic Progress Note ---
Date of Service March 01, 2025 Assessment & Plan (1) Closed compression fracture of L5 vertebra: Plan: Patient is stable at this point. She has urinary tract infection which is resolving. The plan is to bring her to the operating room on Tuesday. Need to keep her comfortable over the weekend continue with DVT and GI prophylaxis as well as pain control measures. She will be n.p.o. on midnight on Tuesday. Admission and Anticipated Discharge Date Admission Date: February 25, 2025 Subjective Patient is seen bedside in room 385 bed 2. She is stable at this point. She has pain when she goes to stand up. Says she puts weight on her left leg feels like it is going to buckle. As she is just lying straight in bed she is relatively comfortable. Physical Exam Physical Exam: On exam she is alert and oriented. She answers questions appropriately. Her visual marie are grossly intact. She is able to dorsiflex and plantarflex both feet. Her gait was not observed. Abdomen soft and nontender. Her calves are supple and nontender. Results & Data Vital Signs (Past 12 Hours) Vital Signs Temp Pulse Resp BP Pulse Ox O2 Del Method 03/01/25 07:29 36.5 C 78 18 151/77 H 95 Room Air (1) Closed compression fracture of L5 vertebra Encounter type: sequela Qualified Code(s): S32.050S - Wedge compression fracture of fifth lumbar vertebra, sequela
--- NOTE | 2025-03-01 12:18 | Hospitalist Progress Note ---
Date of Service March 01, 2025 Assessment & Plan (1) Postoperative back pain: (2) Compression fracture of L5 vertebra: (3) UTI (urinary tract infection): (4) Hypertension: Plan This patient is a 74-year-old female who recently underwent lumbar spine surgery with Dr. Mckoy on 02/08/2025. She returned on 02/25 due to left knee/calf pain rating down from left hip as well as urinary incontinence and constipation. Seems to relate to nerve compression; discussed with Ortho/spine who felt that the compression fracture is leading to nerve compression leading to her symptomsthis certainly fits the clinical picture. Discussed with patient; doubtful about a urinary tract infection is causing the incontinence given how severe it is, how much it seems to track with her back pain and leg radicular symptoms, and the fact that it has been going on for quite a while with no other infectious symptoms (no dysuria, no fevers chills sweats, no leukocytosis, etc.). #Intractable back pain | urinary incontinence Initially, plan was for L4-L5 decompression and fusion with Dr. Mckoy on 02/27 However, this procedure will be postponed due to patient demonstrating evidence of UTI; increased risk for infection/bacteremia Planned revision on the afternoon of Sunday 03/04 DVT PPx, pain control, and fluids per the primary team However, patient requesting scheduled medications on 03/01 due to BTP Rotate acetaminophen 650 mg p.o. q8h with [place] 10/325 mg p.o. q8h while patient awake If refractory, consider increasing dosage of patient's fentanyl patch (currently at 12mcg/hr) Continue to periodically monitor CBC, BMP #Visual hallucinations (resolved) Reported on the morning of 02/28 Patient believes it may have been due to "poor sleep" However, she does have listed allergy of hallucinations with certain opioids She reports she did fine taking hydrocodone/acetaminophen tablets prior to her arrival Tramadol discontinued Patient reported improvement after having a good night sleep on 03/01 #Left knee pain Worse when bearing weight Patient repeatedly reports that his "buckling" and giving out on her when she walks Left knee x-ray did not reveal acute fractures or osseous abnormalities #UTI UA with 4+ bacteria on arrival No leukocytosis; afebrile Final urine culture from 02/25 grew pansensitive E. coli Continue ceftriaxone 1000 mg IV q24h Caceres catheter removed on 02/28 Patient reports no recurrence of urinary incontinence following removal #Anxiety Continue fluoxetine and Seroquel #Hypertension Continue lisinopril; hold in a.m. of surgery assuming she is going to have spine surgery to reduce chance of [place] #Hypothyroidism Continue levothyroxine #Osteopenia Likely relates to the fracture causing current symptoms. Outpatient bone health workup and management. #DVT prophylaxis Per orthopedics (currently SCDs) Thank you for allowing us to participate in the care of this patient; please reach out any questions or concerns. Will continue to follow. Admission and Anticipated Discharge Date Admission Date: February 25, 2025 Supervising Physician Co-Signing Physician Notes Attending Attestation - Chart reviewed, care plan d/w MOSHE Hwang. I agree w/ the gómez components of his documentation. Venkat Haider MD Subjective Mrs. Dexter is happy to report that she is no longer having visual hallucinations. She slept "wonderfully" last night (approximately 8 hours, and believes that this contributed to no hallucinations this morning. Patient has been on [place] and tramadol at home for an extended period of time, and has tolerated them well as pain medications. However she still feels that her pain is not controlled while she is in the hospital. She is requesting that we schedule her pain medications at this time. Additionally, she denies any urinary symptoms at this time after having the Caceres catheter removed. No burning urination. No episodes of urinary incontinence. She reports she has had around 6 or 7 bowel movements over the past 24 hours; she was previously constipated before coming into the hospital, but since starting MiraLAX daily she has been able to go to the bathroom. 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 ROS: Patient endorses left knee pain, left hip pain, lower back pain, and numbness and tingling in both legs (worse in the L >R). Patient denies fever, chills, night sweats, chest pain, SOB, cough, abdominal pain, N/V/D, additional episodes of urinary incontinence, or burning with urination. Review of Systems Review of Systems: See HPI above Physical Exam Physical Exam: General: no acute distress; laying flat in bed reading a mystery novel; non- toxic appearing; SpO2 95% on RA HEENT: normocephalic, atraumatic; PERRLA; vision and hearing intact Neck: supple; trachea midline Skin: warm, dry without signs of tenting; no cyanosis; no rashes, bruising, lesions, or erythema noted CV: chest wall NTP; RRR; S1/S2 normal; no murmurs/rubs/gallops; pulses intact and symmetric at radial, DP, and PT Lungs: no acute respiratory distress; symmetrical chest wall expansion; clear breath sounds across all lung marie w/o adventitious sounds; no wheezing ABD: Soft, NTP; BS present; no rebound/guarding; no distention Back: Lower spine is NTP; no rashes or bruises appreciated on the back or flanks bilaterally Left hip: TTP lateral hip/thigh; purple bruising on the flank just above the left acetabulum; patient demonstrates the ability to flex the left knee at 90 degrees without recurrence of pain; however, her knee is mildly TTP : Negative suprapubic tenderness; clear yellow urine draining into Caceres bag MSK: no tics or fasciculations; no edema noted in the LEs b/l, nonerythematous; 4/5 plantar and dorsiflexion in the ankles bilaterally Neuro: A&Ox3; normal mood and affect; fluent speech; patient report sensation is diminished in the left lower extremity when compared to the right assessed via light touch at the feet, ankles, and knees Results & Data Results & Data Vital Signs (Past 12 Hours) Vital Signs Temp Pulse Resp BP Pulse Ox O2 Del Method 03/01/25 07:29 36.5 C 78 18 151/77 H 95 Room Air PG Care Time/CCT Total # of Minutes Spent Total Time Spent with Patient: Total time spent is greater than 50% in coordination of care (as documented) at patient's floor/unit and/or counseling patient: C[place] [address] SUB INP/OBS CARE 3/50MIN Patient Type Established Medical Decision Making High Complexity Diagnoses Postoperative back pain G89.18; M54.9 Compression fracture of L5 vertebra S32.050A UTI (urinary tract infection) N39.0 Hypertension I10
[2025-03-01] MEDS ORDERED: ACETAMINOPHEN 500 MG TAB PO SCH (18:00)
[2025-03-01] MEDS ORDERED: HYDROCODONE/ACETAMOPHEN 5/325MG TAB PO SCH (22:00)
[2025-03-01] MEDS ORDERED: ACETAMINOPHEN 325 MG TAB PO SCH (22:00)
[2025-03-01] MEDS: ACETAMINOPHEN 325 MG TAB PO SCH (22:13)
--- NOTE | 2025-03-02 06:38 | Orthopedic Progress Note ---
Date of Service March 02, 2025 Assessment & Plan (1) Compression fracture of L5 vertebra: Plan: At this point organ to continue to keep the patient comfortable. Continue GI DVT prophylaxis as well. The plan is to take her to surgery on Tuesday to revise her hardware and perform an L5 kyphoplasty. She understands this. We will proceed with surgical planning and she will be n.p.o. after midnight tomorrow. Admission and Anticipated Discharge Date Admission Date: February 25, 2025 Subjective Patient was seen bedside in room 385 bed 2. She was resting comfortably. Still has pain when she first stands up. The plan at this point is to take her back to surgery on Tuesday to revise her hardware and perform a kyphoplasty of L5. Sh e denies any other numbness, tingling, or paresthesias. Physical Exam Physical Exam: On exam she is resting comfortably. She was awoken follow some commands. She is able to lift her legs to gravity with tenderness. Her abdomen soft and nontender calves are supple and nontender her sensations intact distally. Results & Data Vital Signs (Past 12 Hours) Vital Signs Temp Pulse Resp BP Pulse Ox O2 Del Method 03/01/25 23:52 37.0 C 83 18 161/74 H 98 Room Air (1) Compression fracture of L5 vertebra Encounter type: sequela Qualified Code(s): S32.050S - Wedge compression fracture of fifth lumbar vertebra, sequela
--- NOTE | 2025-03-02 15:19 | Hospitalist Progress Note ---
Date of Service March 02, 2025 Assessment & Plan (1) Postoperative back pain: (2) Compression fracture of L5 vertebra: (3) UTI (urinary tract infection): (4) Hypertension: Plan This patient is a 74-year-old female who recently underwent lumbar spine surgery with Dr. Mckoy on 02/08/2025. She returned on 02/25 due to left knee/calf pain rating down from left hip as well as urinary incontinence and constipation. Seems to relate to nerve compression; discussed with Ortho/spine who felt that the compression fracture is leading to nerve compression leading to her symptomsthis certainly fits the clinical picture. Discussed with patient; doubtful about a urinary tract infection is causing the incontinence given how severe it is, how much it seems to track with her back pain and leg radicular symptoms, and the fact that it has been going on for quite a while with no other infectious symptoms (no dysuria, no fevers chills sweats, no leukocytosis, etc.). #Intractable back pain | urinary incontinence Initially, plan was for L4-L5 decompression and fusion with Dr. Mckoy on 02/27 However, this procedure will be postponed due to patient demonstrating evidence of UTI; increased risk for infection/bacteremia Planned revision on the afternoon of Sunday 03/04 DVT PPx, pain control, and fluids per the primary team However, patient requesting scheduled medications on 03/01 due to BTP Rotate acetaminophen 650 mg p.o. q8h with Oliver 10/325 mg p.o. q8h while patient awake Added back on Tramadol 50 mg p.o. q6h PRN for severe BTP (scale 7-10) If refractory, consider increasing dosage of patient's fentanyl patch (currently at 12mcg/hr) Will defer to primary team Continue to periodically monitor CBC, BMP #Visual hallucinations (resolved) Reported on the morning of 02/28 Patient believes it may have been due to "poor sleep" However, she does have listed allergy of hallucinations with certain opioids She reports she did fine taking hydrocodone/acetaminophen tablets prior to her arrival Patient reported improvement after having a good night sleep on 03/01 Due to exacerbation of left leg pain after working with PT on 03/02, will add back on tramadol Tramadol (as above) #Left knee pain Worse when bearing weight Patient repeatedly reports that his "buckling" and giving out on her when she walks Left knee x-ray did not reveal acute fractures or osseous abnormalities #UTI UA with 4+ bacteria on arrival No leukocytosis; afebrile Final urine culture from 02/25 grew pansensitive E. coli Continue ceftriaxone 1000 mg IV q24h Caceres catheter removed on 02/28 Patient reports no recurrence of urinary incontinence following removal #Anxiety Continue fluoxetine and Seroquel #Hypertension Continue lisinopril; hold in a.m. of surgery assuming she is going to have spine surgery to reduce chance of [place] #Hypothyroidism Continue levothyroxine #Osteopenia Likely relates to the fracture causing current symptoms. Outpatient bone health workup and management. #DVT prophylaxis Per orthopedics (currently SCDs) Thank you for allowing us to participate in the care of this patient; please reach out any questions or concerns. Will continue to follow. Admission and Anticipated Discharge Date Admission Date: February 25, 2025 Supervising Physician Co-Signing Physician Notes Attending Attestation - Chart reviewed, care plan d/w MOSHE Hwang. I agree w/ the gómez components of his documentation. Venkat Haider MD Subjective Mrs. Dexter reports she is feeling "crappy". She was fine when she woke up, but ambulated with PT in the hallways today, and believes this exacerbated her left leg pain. She reports that ever since she walked around lunchtime, her left leg has been in "agony". Patient is used to taking tramadol and Oliver at home. She is requesting additional tramadol at this time, as she believes that her visual hallucinations earlier in the week were due to poor sleep. She believes that her pain can be controlled as long as she lies still in bed, but would like to move around if possible. Her numbness/tingling is about the same as before (slightly worse in the left than the right). No additional episodes of urinary incontinence, but she did report 1 episode where she had an ax in the bed, because she could not get up to the bathroom in time. No episodes of fecal incontinence ROS: Patient endorses severe left hip/thigh/knee pain, and intermittent numbness tingling going down the legs bilaterally. Patient denies fever, chills, night sweats, lower back pain, chest pain, SOB, cough, abdominal pain, N/V/D, additional episodes of urinary incontinence, or burning with urination. Review of Systems Review of Systems: See HPI above Physical Exam Physical Exam: General: no acute distress; laying flat in bed reading a mystery novel; non- toxic appearing; SpO2 97% on RA HEENT: normocephalic, atraumatic; PERRLA; vision and hearing intact Neck: supple; trachea midline Skin: warm, dry without signs of tenting; no cyanosis; no rashes, bruising, lesions, or erythema noted CV: chest wall NTP; RRR; S1/S2 normal; no murmurs/rubs/gallops; pulses intact and symmetric at radial, DP, and PT Lungs: no acute respiratory distress; symmetrical chest wall expansion; clear breath sounds across all lung marie w/o adventitious sounds; no wheezing ABD: Soft, NTP; BS present; no rebound/guarding; no distention Back: Lower spine is NTP; no rashes or bruises appreciated on the back or flanks bilaterally Left hip: TTP lateral hip/thigh/knee; patient demonstrates the ability to flex the left knee at 90 degrees without recurrence of pain : Negative suprapubic tenderness MSK: no tics or fasciculations; no edema noted in the LEs b/l, nonerythematous Neuro: A&Ox3; normal mood and affect; fluent speech; patient report sensation is diminished in the left lower extremity when compared to the right assessed via light touch at the feet, ankles, and knees Results & Data Results & Data Vital Signs (Past 12 Hours) Vital Signs Temp Pulse Resp BP Pulse Ox O2 Del Method 03/02/25 07:19 36.5 C 76 18 141/86 H 97 Room Air PG Care Time/CCT Total # of Minutes Spent Total Time Spent with Patient: Total time spent is greater than 50% in coordination of care (as documented) at patient's floor/unit and/or counseling patient: Coding [place] [address] SUB INP/OBS CARE 3/50MIN Patient Type Established Medical Decision Making High Complexity Diagnoses Postoperative back pain G89.18; M54.9 Compression fracture of L5 vertebra, sequela S32.050S Encounter type: sequela UTI (urinary tract infection) N39.0 Hypertension I10 (2) Compression fracture of L5 vertebra Encounter type: sequela Qualified Code(s): S32.050S - Wedge compression fracture of fifth lumbar vertebra, sequela
[2025-03-03 08:51] LABS: Hematocrit (blood only) 33.3 % (37.0-47.0); Hemoglobin 10.8 g/dl (12.0-16.0); Mean Corpuscular Hemoglobin 30.2 pg (25.0-34.0); Mean Corpuscular Volume 93.0 fL (80.0-100.0); Platelet Count 372 K/uL (130-400); RDW Standard Deviation 42.7 fL (36.4-46.3); Red Blood Count 3.58 M/uL (4.20-5.40); White Blood Count 3.15 K/ul (4.8-10.8)
--- NOTE | 2025-03-03 09:30 | Hospitalist Progress Note ---
Date of Service March 03, 2025 Assessment & Plan (1) Postoperative back pain: (2) Compression fracture of L5 vertebra: (3) UTI (urinary tract infection): (4) Hypertension: Plan This patient is a 74-year-old female who recently underwent lumbar spine surgery with Dr. Mckoy on 02/08/2025. She returned on 02/25 due to left knee/calf pain rating down from left hip as well as urinary incontinence and constipation. Seems to relate to nerve compression; discussed with Ortho/spine who felt that the compression fracture is leading to nerve compression leading to her symptomsthis certainly fits the clinical picture. Discussed with patient; doubtful about a urinary tract infection is causing the incontinence given how severe it is, how much it seems to track with her back pain and leg radicular symptoms, and the fact that it has been going on for quite a while with no other infectious symptoms (no dysuria, no fevers chills sweats, no leukocytosis, etc.). #Intractable back pain | urinary incontinence Initially, plan was for L4-L5 decompression and fusion with Dr. Mckoy on 02/27 However, this procedure will be postponed due to patient demonstrating evidence of UTI; increased risk for infection/bacteremia Planned revision on the afternoon of Sunday 03/04 DVT PPx, pain control, and fluids per the primary team However, patient requesting scheduled medications on 03/01 due to BTP Rotate acetaminophen 650 mg p.o. q8h with [place] 10/325 mg p.o. q8h while patient awake Added back on Tramadol 50 mg p.o. q6h PRN for severe BTP (scale 7-10) Continue fentanyl patch (currently at 12mcg/hr) Will periodically monitor CBC, BMP #Left knee pain Worse when bearing weight Patient repeatedly reports that his "buckling" and giving out on her when she walks Left knee x-ray did not reveal acute fractures or osseous abnormalities #UTI UA with 4+ bacteria on arrival No leukocytosis; afebrile Final urine culture from 02/25 grew pansensitive E. coli Continue ceftriaxone 1000 mg IV q24h Coker catheter removed on 02/28 Patient reports no recurrence of urinary incontinence following coker removal #Visual hallucinations (resolved) Reported on the morning of 02/28 Patient believes it may have been due to "poor sleep" However, she does have listed allergy of hallucinations with certain opioids She reports she did fine taking hydrocodone/acetaminophen tablets prior to her arrival Patient reported improvement after having a good night sleep on 03/01 Due to exacerbation of left leg pain after working with PT on 03/02, will add back on tramadol Tramadol (as above) #Anxiety Continue fluoxetine and Seroquel #Hypertension Continue lisinopril; hold in a.m. of surgery assuming she is going to have spine surgery to reduce chance of [place] #Hypothyroidism Continue levothyroxine #Osteopenia Likely relates to the fracture causing current symptoms. Outpatient bone health workup and management. #DVT prophylaxis Per orthopedics (currently SCDs) Thank you for allowing us to participate in the care of this patient; please reach out any questions or concerns. Will continue to follow. Admission and Anticipated Discharge Date Admission Date: February 25, 2025 Supervising Physician Co-Signing Physician Notes Attending Attestation - Chart reviewed, care plan d/w MOSHE Hwang. I agree w/ the gómez components of his documentation. BPs remain high - due to pain? anxiety? Typically on lisinopril 20mg daily. Lisinopril is currently on hold shannon-operatively, but resume post-op if creatinine is stable. Venkat Haider MD Subjective Mrs. Dexter feels that her pain is better controlled today when compared to yesterday. She has no pain while laying still, and reports that she has been enjoying her lunch (breaded fish, baked potato, and green beans). She is still exhibiting pain, and reports she cannot sit on the edge of the bed or stand/bear weight on her left leg without exacerbating her pain. This has led to significant problems getting up to the bathroom, and she has had multiple episodes where she had to urinate in her depends due to not being able to get up in time. She denies any urinary symptoms at this time; no burning with urination or low back pain. Multiple small BMs yesterday. ROS: Patient endorses left hip/thigh/knee pain (exacerbated by bearing weight), and intermittent numbness tingling going down the legs bilaterally. Patient denies fever, chest pain, SOB, cough, abdominal pain, N/V/D, urinary incontinence, burning with urination, blood in the urine or stool, or lower back pain. Review of Systems Review of Systems: See HPI above Physical Exam Physical Exam: General: no acute distress; laying flat in bed, eating lunch, and reading a mystery novel; non-toxic appearing; SpO2 94% on RA HEENT: normocephalic, atraumatic; PERRLA; vision and hearing intact Neck: supple; trachea midline Skin: warm, dry without signs of tenting; no cyanosis; no rashes, bruising, lesions, or erythema noted CV: chest wall NTP; RRR; S1/S2 normal; no murmurs/rubs/gallops; pulses intact and symmetric at radial, DP, and PT Lungs: no acute respiratory distress; symmetrical chest wall expansion; clear breath sounds across all lung marie w/o adventitious sounds; no wheezing ABD: Soft, NTP; BS present; no rebound/guarding; no distention Back: Lower spine is NTP; no rashes or bruises appreciated on the back or flanks bilaterally Left hip: TTP lateral hip/thigh/knee; patient demonstrates the ability to flex the left knee at 90 degrees without recurrence of pain : Negative suprapubic tenderness MSK: no tics or fasciculations; no edema noted in the LEs b/l, nonerythematous Neuro: A&Ox3; normal mood and affect; fluent speech; patient report sensation is diminished in the left lower extremity when compared to the right assessed via light touch at the feet, ankles, and knees Results & Data Results & Data Vital Signs (Past 12 Hours) Vital Signs Temp Pulse Resp BP BP Pulse Ox O2 Del Method 03/03/25 08:00 Room Air 03/03/25 07:20 36.5 C 78 14 171/75 H 94 Room Air 03/02/25 22:45 37.0 C 84 16 152/76 H 96 Room Air PG Care Time/CCT Total # of Minutes Spent Total Time Spent with Patient: Total time spent is greater than 50% in coordination of care (as documented) at patient's floor/unit and/or counseling patient: C[place] [address] SUB INP/OBS CARE 2/35MIN Patient Type Established Medical Decision Making Moderate Complexity Diagnoses Postoperative back pain G89.18; M54.9 Compression fracture of L5 vertebra, sequela S32.050S Encounter type: sequela UTI (urinary tract infection) N39.0 Hypertension I10 (2) Compression fracture of L5 vertebra Encounter type: sequela Qualified Code(s): S32.050S - Wedge compression fracture of fifth lumbar vertebra, sequela
--- NOTE | 2025-03-03 09:32 | Orthopedic Progress Note ---
Date of Service March 03, 2025 Assessment & Plan (1) Compression fracture of L5 vertebra: Plan: Patient is set to undergo revision surgery tomorrow were going to remove the hardware and perform a kyphoplasty of L5 with reinstrumentation. I described the precise nature of the surgery with the patient including the risks and benefits of the procedure. She would like to move forward with surgical planning. She will be n.p.o. after midnight and plan to get it fixed tomorrow. Admission and Anticipated Discharge Date Admission Date: February 25, 2025 Subjective Patient seen bedside in room 385 bed 2. She appears comfortable this morning. States that she walked with physical therapy yesterday and it created a lot of pain going down her left leg. She states that she is thinking clearly and just wants to have this fixed. She denies any other numbness, tingling, or paresthesias. Physical Exam Physical Exam: On exam she is alert and oriented. She answers questions appropriately. Her strength and sensation are both intact her calves are supple and nontender abdomen soft and nontender. Results & Data Vital Signs (Past 12 Hours) Vital Signs Temp Pulse Resp BP BP Pulse Ox O2 Del Method 03/03/25 08:00 Room Air 03/03/25 07:20 36.5 C 78 14 171/75 H 94 Room Air 03/02/25 22:45 37.0 C 84 16 152/76 H 96 Room Air (1) Compression fracture of L5 vertebra Encounter type: sequela Qualified Code(s): S32.050S - Wedge compression fracture of fifth lumbar vertebra, sequela
[2025-03-04] MEDS: ACETAMINOPHEN 1,000 MG/100 ML VIAL IV STA (05:18)
[2025-03-04] MEDS ORDERED: PROPOFOL IV EMULSION 10 MG/ML 20 ML VIAL IV ONE (08:20)
[2025-03-04] MEDS ORDERED: ONDANSETRON INJ 2 MG/ML 2 ML VIAL ONE (08:20)
[2025-03-04] MEDS ORDERED: ROCURONIUM BROMIDE 10 MG/ML 5 ML VIAL IV ONE ×2 (08:20→11:08)
[2025-03-04] MEDS ORDERED: MIDAZOLAM HCL 1 MG/ML 2ML VIAL ONE (08:20)
[2025-03-04] MEDS ORDERED: LIDOCAINE 2% 2 ML VIAL/AMP(20MG/ML) INFIL ONE ×2 (08:20)
[2025-03-04] MEDS ORDERED: DEXAMETHASONE SOD INJ 4 MG/ML VIAL ONE (08:20)
[2025-03-04] MEDS ORDERED: ePHEDrine sulfate 50 MG/5 ML SYR ONE ×3 (08:26→10:51)
[2025-03-04] MEDS ORDERED: ATROPINE SULFATE 0.1 MG/ML 10ML SYR IV PRN (09:01)
[2025-03-04] MEDS ORDERED: ONDANSETRON INJ 2 MG/ML 2 ML VIAL IV PRN ×2 (09:01→13:53)
--- NOTE | 2025-03-04 10:02 | Anesthesiology Consultation ---
Date of Service March 04, 2025 Assessment & Plan (1) Encounter for pre-operative examination: Chart Review Chart Review: Acceptable Risk for Surgery and Patient NOT seen in Pre Admission Testing Consults Requested none History Surgery Operation Date: 03/04/25 10:05 Proposed Procedures p L4-L5 Decompression and Fusion, L4 and L5 Kyphoplasty - Gagan Mckoy DO Height/Weight Height: 5 ft 6 in Weight: 74.1 kg Allergies Allergy/AdvReac Type Severity Reaction Status Date / Time codeine Allergy Severe Fainting Verified 03/04/25 08:50 morphine Allergy Severe Respiratory Verified 03/04/25 08:50 depression animal dander Allergy Intermediate Respiratory Verified 03/04/25 08:50 issues, congestion house dust mite Allergy Intermediate Respiratory Verified 03/04/25 08:50 issues, congestion meperidine Allergy Intermediate Vomiting Verified 03/04/25 08:50 pineapple Allergy Intermediate *Raw Verified 03/04/25 08:50 pineapple*- solomon lips/fingers hydromorphone AdvReac Intermediate Hallucinati Verified 03/04/25 08:50 ons lactose AdvReac Unknown severe Verified 03/04/25 08:50 lactose intolerance Medications Home Medications Medication Instructions Recorded Confirmed Last Taken adiokxgdcazo-fqnsmxhm-csuift 1 tab PO HS 02/16/18 02/25/25 02/10/25 tablet (Multivitamin 50 Plus tablet) cholecalciferol (vitamin D3) 50 2,000 unit PO QAM 01/11/19 02/25/25 02/11/25 mcg (2,000 unit) capsule (Vitamin D3) calcipotriene 0.005 % topical cream 1 applic topical DAILY 08/14/21 02/25/25 05/02/24 08:00 betamethasone dipropionate 0.05 % 1 applic topical DAILY PRN Skin 01/05/22 02/25/25 05/02/24 08:00 topical cream Irritation bupropion HCl 300 mg 24 hr tablet, 300 mg PO QAM #90 tabs 06/14/24 02/25/25 02/11/25 extended release acetaminophen 650 mg 1,300 mg PO HS 07/17/24 02/25/25 02/10/25 tablet,extended release (Tylenol Arthritis Pain) lisinopril 20 mg tablet 20 mg PO QAM #90 tabs 11/13/24 02/25/25 02/11/25 alendronate 70 mg tablet (Fosamax) 70 mg PO WK 01/10/25 02/25/25 02/06/25 10:00 clotrimazole-betamethasone 1 1 applic topical 2XWK 01/10/25 02/25/25 Unknown %-0.05 % topical cream fluoxetine 40 mg capsule 40 mg PO QAM 01/10/25 02/25/25 02/11/25 levothyroxine 125 mcg tablet 125 mcg PO QAM 01/10/25 02/25/25 02/11/25 quetiapine 50 mg tablet 50 mg PO HS 01/10/25 02/25/25 02/10/25 tramadol 50 mg tablet 50 mg PO Q6H PRN pain, moderate 02/09/25 02/25/25 Unknown #30 tabs baclofen 20 mg tablet 20 mg PO QID PRN MUSCLE SPASMS 02/11/25 02/25/25 Unknown cyclobenzaprine 5 mg tablet 5 mg PO TID PRN muscle spasm 02/21/25 02/25/25 Unknown fentanyl 12 mcg/hr transdermal 1 patch transdermal Q72H 02/21/25 02/25/25 Unknown patch ferrous sulfate 325 mg (65 mg 325 mg PO .COMPLEX 02/21/25 02/25/25 Unknown iron) tablet gabapentin 800 mg tablet 1,200 mg PO Q8H 02/21/25 02/25/25 Unknown hydrocodone 10 mg-acetaminophen 1 tab PO BID PRN pain 02/21/25 02/25/25 Unknown 325 mg tablet Active Medications Generic Name Dose Route Start Last Admin Trade Name Freq PRN Reason Stop Dose Admin Acetaminophen 650 mg 03/01/25 22:00 03/04/25 05:33 Acetaminophen 325 Mg Tab PO 03/31/25 21:59 Not Given Q8H CORNELIO Hydrocodone Bitart/Acetaminophen 1 tab 03/01/25 18:00 03/04/25 01:12 Hydrocodone/Acetaminophen 10/325 Tab PO 03/15/25 17:59 Not Given Q8H CORNELIO Baclofen 20 mg 02/25/25 19:55 03/03/25 11:31 Baclofen 20 Mg Tab PO 03/27/25 19:54 20 mg QID PRN Administration MUSCLE SPASMS Bupropion HCl 300 mg 02/26/25 09:00 03/03/25 07:46 Bupropion Xl 300 Mg Tabcr PO 03/28/25 08:59 300 mg QAM CORNELIO Administration Fentanyl 1 patch 02/27/25 21:00 03/02/25 21:59 Fentanyl 12 Mcg/Hr Tdsy TD 03/13/25 20:59 1 patch Q72H CORNELIO Administration Ferrous Sulfate 325 mg 02/26/25 09:00 03/02/25 07:49 Ferrous Sulfate 325 Mg Tab PO 03/28/25 08:59 325 mg Q2D CORNELIO Administration Fluoxetine HCl 40 mg 02/26/25 09:00 03/03/25 07:49 Fluoxetine Hcl 20 Mg Cap PO 03/28/25 08:59 40 mg QAM CORNELIO Administration Gabapentin 1,200 mg 02/25/25 15:00 03/04/25 06:15 Gabapentin 600 Mg Tab PO 03/27/25 14:59 Not Given Q8H CORNELIO Ceftriaxone Sodium 1,000 mg in 50 mls @ 100 mls/hr 02/26/25 08:15 03/04/25 08:19 Rocephin IV 03/08/25 08:14 Infused Q24H CORNELIO Infusion Levothyroxine Sodium 125 mcg 02/26/25 06:30 03/04/25 05:33 Levothyroxine Sodium 125 Mcg Tablet PO 03/28/25 06:29 Not Given DAILYBB CORNELIO Miscellaneous 1 each 02/27/25 20:59 03/02/25 21:54 Fentanyl Patch Remove & Waste N/A 03/29/25 20:58 1 each Q3D CORNELIO Administration Miscellaneous 1 each 02/25/25 16:00 03/04/25 00:31 Check Fentanyl Patch Placement N/A 03/27/25 15:59 1 each QS CORNELIO Administration Polyethylene Glycol 17 gm 02/26/25 13:30 03/03/25 07:48 Polyethylene (Miralax) 17 Gm Pack PO 03/28/25 13:29 17 gm DAILY CORNELIO Administration Quetiapine Fumarate 50 mg 02/25/25 21:00 03/03/25 22:18 Quetiapine Fumarate 25 Mg Tablet PO 03/27/25 20:59 50 mg HS CORNELIO Administration Tramadol HCl 50 mg 03/02/25 21:15 03/03/25 11:31 Tramadol Hcl 50 Mg Tablet PO 04/01/25 21:14 50 mg Q6H PRN Administration Severe Pain (Scale 7, 8, 9,10) Vitamin D 50 mcg 02/26/25 09:00 03/03/25 07:48 Cholecalciferol 25 Mcg (1000 Units) Tab PO 03/28/25 08:59 50 mcg QAM CORNELIO Administration NPO Date Last Intake of Fluids: 03/03/25 Time Last Intake of Fluids: 23:55 Date Last Intake of Solids: 03/03/25 Time Last Intake of Solids: 17:00 Past Medical History Medical History Renal cyst Monitoring Anxiety Contact dermatitis Occasional flares Lactose intolerance Chronic back pain Inhibits long distance ambulation and has pain standing Urine incontinence Stress incontinence and urgency Osteopenia Lumbar stenosis Psoriasis Abdominal adhesions Chronic, 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 Followed [place] [facility] [place] No longer needs to f/u - only prn per patient History of thyroid cancer (1985) s/p thyroidectomy Hx SBO Multiple, most recent treated at [facility] (05/2023), no surgical intervention needed Mild sleep apnea CPAP (does not use machine) Chronic depression Allergic rhinitis Osteoarthritis Degenerative disc disease Rupture of small intestine Hx 2009- ruptured SB (due adhesions per patient) with ileostomy then reversed Lymphedema B/L feet/ankles Hypothyroidism Trigeminal neuralgia of right side of face Upper right (V1-2 right side) Follows with neuro- per 03/2024 office visit - TN aggravated due to insomnia- recommended to continue current meds and follow up with PCP Hypertension Exercise / Class Metabolic Activity II 4-5 Yardwork/Stairs/Walk up hill Past Family History Family History Grandfather Family hx of colon cancer MATERNAL Family/Other Family hx of colon cancer MATERNAL COUSIN Other No family history of adverse response to anesthesia Denies family history of Ovarian cancer Prostate cancer Myocardial infarction Breast cancer Past Surgical History Surgical History Hx of cystoscopy with injection of urethral bulking agent S/P epidural steroid injection History of reversal of ileostomy (2009) History of toe surgery History of cataract surgery (2017) R/L History of anesthesia reaction Difficulty waking up H/O left breast biopsy Benign History of endometrial ablation History of bilateral tubal ligation History of dilatation and curettage X3 History of total abdominal hysterectomy and bilateral salpingo-oophorectomy History of carpal tunnel release R/L History of bladder surgery Bladder tack History of appendectomy History of colonoscopy H/O ileostomy 2009 (for 4 months with reversal) S/P thyroid biopsy 1986, malignant History of tooth extraction [place] teeth extraction History of parathyroidectomy History of thyroidectomy, total 1985--[place] had lymph nodes removed S/P small bowel resection 2009 after rupture of small intestine Social History Smoking Status: Never smoker Do You Dip or Chew Tobacco: No Hx Alcohol Use: No Hx Substance Use: No substance use type: does not use Physical Exam Vital Signs Last Vital Signs Temp 37.0 C 03/04/25 08:50 Pulse 90 03/04/25 08:50 Resp 18 03/04/25 08:50 BP 171/91 H 03/04/25 08:50 Pulse Ox 98 03/04/25 08:50 O2 Del Method Room Air 03/04/25 08:50 Testing Laboratory Results 03/03/25 08:34 03/01/25 06:36 Urine Color Yellow 02/25/25 12:40 Urine Appearance Cloudy (Clear) A 02/25/25 12:40 Urine pH 6.5 (4.5-7.5) 02/25/25 12:40 Ur Specific [place] 1.017 (1.000-1.030) 02/25/25 12:40 Urine Protein Negative (Negative) 02/25/25 12:40 Urine Glucose (UA) Negative (Negative) 02/25/25 12:40 Urine Ketones Negative (Negative) 02/25/25 12:40 Urine Nitrite Positive (Negative) A 02/25/25 12:40 Ur Leukocyte Esterase 3+ (Negative) H 02/25/25 12:40 Urine WBC (Auto) >50 /hpf (0-5) H 02/25/25 12:40 Urine RBC (Auto) 0-2 /hpf (0-2) 02/25/25 12:40 U Hyaline Cast (Auto) 0-2 /lpf (0-2) 02/25/25 12:40 U Epithel Cells (Auto) 0-2 /hpf (0-2) 02/25/25 12:40 Urine Bacteria (Auto) 4+ (None Seen) H 02/25/25 12:40 Blood Type B Negative 02/27/25 06:03 Antibody Screen NEGATIVE 02/27/25 06:03 02/25/25 12:40 Urine Culture - Final Urine,Clean Catch Escherichia coli Electrocardiogram Date: 01/17/25 Findings: + NSR @ (79)
[2025-03-04] MEDS ORDERED: KETAMINE HCL 10MG/ML SYR ONE (10:08)
[2025-03-04] MEDS ORDERED: GLYCOPYRROLATE 0.2 MG/ML VIAL ONE (10:08)
--- NOTE | 2025-03-04 10:16 | History & Physical Bridge Note ---
Date of Service March 04, 2025 History & Physical Bridge Note I have examined the patient, reviewed the History & Physical and in the interval since the performance of the History & Physical I have noted the following changes of clinical significance: no changes noted Decompression fusion L4-L5, kyphoplasty L5
[2025-03-04] MEDS ORDERED: ceFAZolin 330 MG/ML 1 GM VIAL ONE ×2 (11:05)
[2025-03-04] MEDS ORDERED: SUGAMMADEX SODIUM 200 MG/2 ML VIAL IV ONE (11:12)
[2025-03-04] MEDS: IOPAMIDOL INJ 61% 15 ML VIAL INSTIL ONE (11:30)
[2025-03-04] MEDS: ceFAZolin 330 MG/ML 1 GM VIAL ONE (11:32)
[2025-03-04] MEDS: BUPIVACAINE/EPINEPHRINE 0.25% 1:200,000 30 ML VIAL ONE (12:27)
[2025-03-04] MEDS: FLOSEAL HEMOSTATIC MATRIX 10ML TOP ONE (12:35)
--- NOTE | 2025-03-04 12:45 | Operative Report ---
Post Operative Report Pre & Post Diagnosis Operation Date: 03/04/25 10:05 Pre-Op Diagnosis: #1 L5 compression fracture with radiculopathy Post-Op Diagnosis: #1 L5 and S1 compression fractures. #2 lumbar spondylosis with radiculopathy L4-L5 I identified the patient and participated in the time-out.: Yes Procedure Operation Date: 03/04/25 10:05 Actual Procedures #1 removal of posterior instrumentation L4-L5 and S1 bilaterally. #2 kyphoplasty of L4-L5 and S1 vertebral bodies. #3 decompression with medial facetectomies and foraminotomies L4-L5. #4 posterior spinal fusion L4-L5 to #5 placed to posterior instrumentation L4-S1 using Armas. #6 interbody fusion L4- L5. #7 placement of Spira 13 x 26 mm at L4-5 point #8 placement of Proteus combined with Koros in the posterior lateral gutters and os design interbody space. #8 application of versa wrap of the exposed dura. Surgeon Gagan Mckoy, DO Lead Electrical Controls Engineer Irina Charles Estimated Blood Loss 550 Findings See Below Upon removal of the posterior instrumentation and noted marked loosening of the bilateral L5 and S1 pedicle screws consistent with compression fractures at both levels. Also noted fracture of the L4-L5 facet on the left. Specimens None Indications This is a 74-year-old female who presents with the above-mentioned diagnoses. I n light of her functional decline and inability to ambulate she is here for surgical invention. Description of Procedure Patient was met with identified informed consent obtained. Patient was then taken to the operative suite underwent patient placed in a prone position on the Inocente table atop the Anshu frame. All bony prominences well-padded eyes inspected to ensure no external pressure placed upon them. This point the lumbar spine was prepped and draped in normal sterile fashion. Sharp dissection with the assistance Burkard from down to and exposing the lamina and transverse processes of L4 and the instrumentation at L5 and S1 levels bilaterally. I then proceeded to remove the hardware bilaterally. It noted marked loosening of the bilateral L5 and S1 pedicle screws. I then placed the L5 and S1 bilaterally Kyphon balloons into the vertebral bodies inflating them to create space for cement. They were subsequently removed and cement was injected bilaterally into the vertebral bodies of L5 and S1. This is followed by placement of pedicle screws at L5-S1. I also performed a kyphoplasty of L4. Again placing a balloon within the vertebral body inflating it to create adequate space for cement. This is followed by placement of cement and pedicle screws at L4 bilaterally. I then performed a complete decompression of L4 with medial facetectomies and foraminotomies noting significant loosening of the facet at L4-5 with a fracture of the inferior facet of L4 and severe neural compression. After complete decompression rods were contoured and placed bilaterally at L4-S1. By way of a transforaminal approach on the left complete discectomy of L4-5 was performed endplates created to subcortical bleeding bone and a 13 x 26 mm Spira cage filled with os design bone graft tapped in position. The rods were then locked in a final position bilaterally. The transverse processes of L4-L5 burred to subcortical Bone. Proteus combined with Koros was placed in the posterior gutters. Versa wrap placed of exposed dura. 15 round SADI drain inserted. Incision was then closed with 1 Vicryl fascia 2-0 Vicryl subcutaneously and 4 Monocryl for final skin closure. Steri-Strips sterile dressing placed. Patient waken taken to PACU in stable condition. Please note Irina Charles was present of the entire procedure and on the patient positioning complex portion of the surgery and final skin closure. I attest to the content of the Intraoperative Record and any orders documented therein. Any exceptions are noted below.
--- NOTE | 2025-03-04 12:58 | Fluoroscopy Report ---
FL lumbar spine 2-3V CLINICAL HISTORY: L4-L5 DECOMPRESSION AND FUSION L4-L5 KYPHOPLASTY COMPARISON STUDY: None FLUOROSCOPY TIME: 1 minute 24 seconds FLUOROSCOPY IMAGES: 2 EXPOSURE DOSE: 82 mGy FINDINGS: Fluoroscopy was provided for a lower lumbar fusion. IMPRESSION: Intraoperative fluoroscopy. ACT 112: Negative or not required by law. Electronically signed by: Milo Purcell M.D. 03/04/2025 12:57 PM
--- NOTE | 2025-03-04 13:16 | Anesthesiology Progress Note ---
Date of Service March 04, 2025 Anesthesia Post Procedure Vital Signs Vital Signs: Temp Pulse Resp BP Pulse Ox O2 Del Method 03/04/25 08:50 37.0 C 90 18 171/91 H 98 Room Air 03/04/25 08:02 36.9 C 85 18 134/75 95 Room Air 03/03/25 22:23 37.0 C 84 16 165/83 H 96 Room Air 03/03/25 17:02 37 C 79 20 138/86 96 Room Air Pain Intensity Left Hip: Pain Intensity: 2 Bilateral Back: Pain Intensity: 2 Transfer of Care Handoff Completed per policy Notes Mental Status: alert / awake / arousable and participated in evaluation Patient Amnestic to Procedure: Yes Nausea / Vomiting: adequately controlled Pain: adequately controlled Airway Patency, RR, SpO2: stable & adequate BP & HR: stable & adequate Hydration State: stable & adequate Anesthetic Complications: no major complications apparent and Pt Satisfied with anesthetic care Notes: Patient with significant pain preop (patient has fentanyl patch on). She has multiple allergies to pain medication so our perioperative options are somewhat limited. She was maintained with fentanyl and ketamine in OR and fentanyl in PACU. Plan to treat until patient's pain is tolerable, at which point she would then be appropriate to transfer back to floor. Denies nausea and no apparent anesthesia complications.
[2025-03-04] MEDS ORDERED: MAGNESIUM HYDROXIDE SUSP 30 ML UDC PO PRN (13:53)
[2025-03-04] MEDS ORDERED: SOD PHOSPHATE/SOD BIPHOSPHATE ENEMA 132 ML BTL PR PRN (13:53)
[2025-03-04] MEDS ORDERED: LORazepam Inj 0.5 MG in SYRINGE 0.25 ML IV PRN (13:53)
[2025-03-04] MEDS ORDERED: PROMETHAZINE 12.5 MG/50.5 ML BAG IV PRN (13:53)
[2025-03-04] MEDS ORDERED: MoRPHine SULFATE 4 MG/ML 1 ML CARP\\VIAL IV PRN (13:53)
[2025-03-04] MEDS ORDERED: FAMOTIDINE 20 MG TAB PO PRN (13:53)
[2025-03-04] MEDS ORDERED: ALUMINUM/MAGNESIUM SUSP 30 ML UDC PO PRN (13:53)
[2025-03-04] MEDS ORDERED: ONDANSETRON 4 MG OD TAB PO PRN (13:53)
[2025-03-04] MEDS ORDERED: LORazepam 0.5 MG TAB PO PRN (13:53)
[2025-03-04] MEDS ORDERED: METOCLOPRAMIDE HCL INJ 5 MG/ML 2 ML VIAL IV PRN (13:53)
[2025-03-04] MEDS ORDERED: NALOXONE HCL 0.4 MG/1 ML VIAL/CARP IV PRN (13:53)
[2025-03-04] MEDS ORDERED: DO NOT ADMINISTER PNEUMOCOCCAL VACCINE PRN (13:53)
[2025-03-04] MEDS ORDERED: DO NOT ADMINISTER FLU VACCINE PRN (13:53)
[2025-03-04] MEDS ORDERED: ACETAMINOPHEN 500 MG TAB PO PRN (13:53)
[2025-03-04] MEDS ORDERED: diphenhydrAMINE Capsule 25 MG CAP PO PRN (13:53)
[2025-03-04] MEDS: LACTATED RINGER'S 1,000 ML IV SCH (15:21)
--- NOTE | 2025-03-04 17:31 | Hospitalist Progress Note ---
Date of Service March 04, 2025 Assessment & Plan (1) Postoperative back pain: (2) Compression fracture of L5 vertebra: (3) UTI (urinary tract infection): (4) Hypertension: Plan This patient is a 74-year-old female who recently underwent lumbar spine surgery with Dr. Mckoy on 02/08/2025. She returned on 02/25 due to left knee/calf pain rating down from left hip as well as urinary incontinence and constipation. Seems to relate to nerve compression; discussed with Ortho/spine who felt that the compression fracture is leading to nerve compression leading to her symptomsthis certainly fits the clinical picture. Discussed with patient; doubtful about a urinary tract infection is causing the incontinence given how severe it is, how much it seems to track with her back pain and leg radicular symptoms, and the fact that it has been going on for quite a while with no other infectious symptoms (no dysuria, no fevers chills sweats, no leukocytosis, etc.). #Intractable back pain | urinary incontinence|S/P removal of posterior instrumentation to L4-L5 and S1 bilaterally, kyphoplasty of L4-L5 and S1 vetebral bodies, decompression wtih medial factectomies and foraminotomies L4- L5, posterior spinal fusion L4-L5, interbody fusion L4-L5 on 03/04/25 -Initially, plan was for L4-L5 decompression and fusion with Dr. Mckoy on 02/27, postponed d/t discovered UTI and need for treatment prior to surgical intervention as she would be high risk for infection/bateremia -DVT PPx, pain control, and fluids per the primary team -patient reveals she does not do well with certain opiates included a noted allergy to morphine (respiratory depression) and Dilaudid (hallucinations), morphine discontinued due to allergy -acetaminophen 650 mg po q8h, change [place] to PRN, Tramadol PRN -fentanyl patch (currently at 12mcg/hr) -CBC, BMP in am as she is in post-op period with EBL of 550ml #Left knee pain -Worse when bearing weight -Patient repeatedly reports that his "buckling" and giving out on her when she walks -Left knee x-ray did not reveal acute fractures or osseous abnormalities #UTI -UA with 4+ bacteria on arrival -No leukocytosis; afebrile -Final urine culture from 02/25 grew pansensitive E. coli -completed 7 days of IV ceftriaxone -Coker catheter removed on 02/28, reinserted 03/04 post operative state -Patient reports no recurrence of urinary incontinence following coker removal #Visual hallucinations (resolved) -Reported on the morning of 02/28 -Patient believes it may have been due to "poor sleep" -However, she does have listed allergy of hallucinations with certain opioids -She reports she did fine taking hydrocodone/acetaminophen tablets prior to her arrival -Patient reported improvement after having a good night sleep on 03/01 -Due to exacerbation of left leg pain after working with PT on 03/02 #Anxiety -Continue fluoxetine and Seroquel #Hypertension -lisinopril held this am, will restart tomorrow am #Hypothyroidism -Continue levothyroxine #Osteopenia -Likely related to the fracture causing current symptoms, outpatient bone health workup and management. #DVT prophylaxis Per orthopedics (currently SCDs) Thank you for allowing us to participate in the care of this patient; please reach out any questions or concerns. Will continue to follow. Admission and Anticipated Discharge Date Admission Date: February 25, 2025 Review of Systems Review of Systems: All systems reviewed & are unremarkable except as noted in Subjective Physical Exam Physical Exam: GENERAL APPEARANCE: A&O. Sitting comfortably on stretcher. NAD. SKIN: Normal color without rashes or lesions. Normal turgor. HEENT: Head AT/NC. Buccal mucosa is moist and pink. NECK: No jugular venous distention. No thyroid enlargement. There is no lymphadenopathy. HEART: RRR without m/g/r LUNGS: Normal inspiratory effort. CTA without w/r/r ABDOMEN: No guarding or rigidity. Normoactive BS in all four quadrants. Abdomen soft and NT. MSK: No bony gross/deformities throughout. ROM intact. EXTREMITIES: No edema, No peripheral cyanosis. Neuro: CN 2-12 grossly intact. No focal neuro deficits PSYCHIATRIC: Normal affect. Eye contact is good. Speech is normal rate and content. Responses are appropriate. Results & Data Results & Data Vital Signs (Past 12 Hours) Vital Signs Temp Pulse Pulse Resp BP Pulse Ox O2 Del Method 03/04/25 14:30 36.6 C 98 H 14 129/85 98 Room Air 03/04/25 13:53 36.6 C 98 H 14 113/57 L 98 Room Air 03/04/25 13:30 100 H 16 99/71 L 99 Room Air 03/04/25 13:20 36.4 C L 96 H 16 106/80 99 Room Air 03/04/25 13:10 94 H 18 118/67 100 Oxymask 03/04/25 13:00 92 H 16 114/59 L 95 Oxymask 03/04/25 12:52 36.2 C L 85 16 137/73 100 Oxymask 03/04/25 08:50 37.0 C 90 18 171/91 H 98 Room Air 03/04/25 08:02 36.9 C 85 18 134/75 95 Room Air O2 Flow Rate 03/04/25 14:30 03/04/25 13:53 03/04/25 13:30 03/04/25 13:20 03/04/25 13:10 4 03/04/25 13:00 6 03/04/25 12:52 6 03/04/25 08:50 03/04/25 08:02 PG Care Time/CCT Total # of Minutes Spent Total Time Spent with Patient: Total time spent is greater than 50% in coordination of care (as documented) at patient's floor/unit and/or counseling patient: Coding Level of Care Code 33064 SUB INP/OBS CARE 3/50MIN Diagnoses Postoperative back pain G89.18; M54.9 Compression fracture of L5 vertebra, sequela S32.050S Encounter type: sequela UTI (urinary tract infection) N39.0 Hypertension I10 (2) Compression fracture of L5 vertebra Encounter type: sequela Qualified Code(s): S32.050S - Wedge compression fracture of fifth lumbar vertebra, sequela
[2025-03-04] MEDS: DOCUSATE SODIUM/SENNA 50/8.6MG TAB PO SCH (20:03)
[2025-03-05] MEDS: POLYETHYLENE (MIRALAX) 17 GM PACK PO SCH (05:32)
[2025-03-05 07:13] LABS: Hematocrit (blood only) 25.3 % (37.0-47.0); Hemoglobin 8.6 g/dl (12.0-16.0); Immature Granulocytes # (auto) 0.05 K/uL (0.01-0.20); Immature Granulocytes % (auto) 0.9 %; Mean Corpuscular Hemoglobin 31.3 pg (25.0-34.0); Mean Corpuscular Volume 92.0 fL (80.0-100.0); Platelet Count 337 K/uL (130-400); RDW Standard Deviation 42.0 fL (36.4-46.3); Red Blood Count 2.75 M/uL (4.20-5.40); White Blood Count 5.54 K/ul (4.8-10.8)
[2025-03-05 07:36] LABS: Anion Gap 6.0 (3-11); Blood Urea Nitrogen 21.0 mg/dl (6-23); Calcium 8.6 mg/dl (8.6-10.3); Carbon Dioxide 30.0 mmol/L (21-32); Chloride 100.0 mmol/L (98-107); Creatinine Clr Calc Pharmacy 51.3 ml/min; Glucose 88.0 mg/dl (70-99(Fasting)); Potassium 3.9 mmol/L (3.5-5.1); Sodium 136.0 mmol/L (136-145)
[2025-03-05] MEDS: dexAMETHasone 6 MG in SYRINGE 0 ML IV SCH (08:30)
--- NOTE | 2025-03-05 10:15 | Orthopedic Progress Note ---
Date of Service March 05, 2025 Assessment & Plan (1) Compression fracture of L5 vertebra: Plan: At this time initiate physical therapy. Monitor SADI output anticipate discharge to rehab in the next few days. Admission and Anticipated Discharge Date Admission Date: February 25, 2025 Subjective Patient is complaining of back pain only. Denies any leg pain. Physical Exam Physical Exam: Patient currently bed. She is good strength testing. Results & Data Vital Signs (Past 12 Hours) Vital Signs Temp Pulse Resp BP BP Pulse Ox O2 Del Method 03/05/25 07:15 36.7 C 87 18 117/71 97 Room Air 03/05/25 04:54 36.6 C 91 H 18 114/61 97 Room Air 03/05/25 00:03 37.1 C 95 H 18 122/67 96 Room Air 03/04/25 22:41 Room Air Queries Orthopedic Spine Vertebral Fracture Secondary to Osteoporosis: Yes (1) Compression fracture of L5 vertebra Encounter type: sequela Qualified Code(s): S32.050S - Wedge compression fracture of fifth lumbar vertebra, sequela
[2025-03-05] MEDS: ACETAMINOPHEN 1,000 MG/100 ML VIAL IV PRN (11:38)
--- NOTE | 2025-03-05 17:12 | Hospitalist Progress Note ---
Date of Service March 05, 2025 Assessment & Plan (1) Postoperative back pain: (2) Compression fracture of L5 vertebra: (3) UTI (urinary tract infection): (4) Hypertension: Plan This patient is a 74-year-old female who recently underwent lumbar spine surgery with Dr. Mckoy on 02/08/2025. She returned on 02/25 due to left knee/calf pain rating down from left hip as well as urinary incontinence and constipation. Seems to relate to nerve compression; discussed with Ortho/spine who felt that the compression fracture is leading to nerve compression leading to her symptomsthis certainly fits the clinical picture. Discussed with patient; doubtful about a urinary tract infection is causing the incontinence given how severe it is, how much it seems to track with her back pain and leg radicular symptoms, and the fact that it has been going on for quite a while with no other infectious symptoms (no dysuria, no fevers chills sweats, no leukocytosis, etc.). #Intractable back pain | urinary incontinence|S/P removal of posterior instrumentation to L4-L5 and S1 bilaterally, kyphoplasty of L4-L5 and S1 vetebral bodies, decompression wtih medial factectomies and foraminotomies L4- L5, posterior spinal fusion L4-L5, interbody fusion L4-L5 on 03/04/25 -Initially, plan was for L4-L5 decompression and fusion with Dr. Mckoy on 02/27, postponed d/t discovered UTI and need for treatment prior to surgical intervention as she would be high risk for infection/bateremia -DVT PPx, pain control, and fluids per the primary team -patient reveals she does not do well with certain opiates included a noted allergy to morphine (respiratory depression) and Dilaudid (hallucinations), morphine discontinued due to allergy -acetaminophen 650 mg po q8h, changed D Lo to Q6H PRN dosing -fentanyl patch (currently at 12mcg/hr) -EBL from surgery on 03/04/25 @ 550ml ##Acute blood loss|anemia -EBL 550ml from lumbar surgery on 03/04/25, SADI drain with 365ml total since surgery on 03/04/25 -on ferrous sulfate Q2D -previous lumbar surgery on 02/08/25 with post op hgb trends in mid 8s -she is without hypotension or tachycardia -no increased output from SADI drain or surgical dressing with assessment -will trend CBC #Left knee pain -Worse when bearing weight -Patient repeatedly reports that his "buckling" and giving out on her when she walks -Left knee x-ray did not reveal acute fractures or osseous abnormalities #UTI -UA with 4+ bacteria on arrival -No leukocytosis; afebrile -Final urine culture from 02/25 grew pansensitive E. coli -completed 7 days of IV ceftriaxone -Ccaeres catheter removed on 02/28, reinserted 03/04 post operative state #Visual hallucinations (resolved) -none reported #Anxiety -Continue fluoxetine and Seroquel #Hypertension -lisinopril held secondary to surgical status, will resume tomorrow as Cr is at baseline #Hypothyroidism -Continue levothyroxine #Osteopenia -Likely related to the fracture causing current symptoms, outpatient bone health workup and management. #DVT prophylaxis Per orthopedics (currently SCDs) Thank you for allowing us to participate in the care of this patient; please reach out any questions or concerns. Will continue to follow. Admission and Anticipated Discharge Date Admission Date: February 25, 2025 Subjective Assessed this am while lying on her side in bed. States pain is localized to her lumbar area. Taking Tramadol and D Lo as needed for pain. Eating and drinking well. Caceres remains intact with clear, yellow urine present. D/C plan f Review of Systems Review of Systems: All systems reviewed & are unremarkable except as noted in Subjective Physical Exam Physical Exam: GENERAL APPEARANCE: A&O. Sitting comfortably in bed. NAD. SKIN: Normal color without rashes or lesions. Normal turgor. HEENT: Head AT/NC. Buccal mucosa is moist and pink. NECK: No jugular venous distention. No thyroid enlargement. There is no lymphadenopathy. HEART: RRR without m/g/r LUNGS: Normal inspiratory effort. CTA without w/r/r. ABDOMEN: No guarding or rigidity. Normoactive BS in all four quadrants. Abdomen soft and NT. MSK: No bony gross/deformities throughout. ROM intact. Lower back dressing C/D/I. Sadi drain without excess bleeding. EXTREMITIES: No edema, No peripheral cyanosis. +4/5 MS in lower ext. +dorsiflexion/plantar flexion of bilateral feet. Neuro: CN 2-12 grossly intact. No focal neuro deficits PSYCHIATRIC: Normal affect. Eye contact is good. Speech is normal rate and content. Responses are appropriate. Results & Data Results & Data Vital Signs (Past 12 Hours) Vital Signs Temp Pulse Pulse Resp BP Pulse Ox O2 Del Method 03/05/25 15:29 36.8 C 89 20 114/64 96 Room Air 03/05/25 11:25 36.4 C L 91 H 18 130/71 95 Room Air 03/05/25 07:15 36.7 C 87 18 117/71 97 Room Air PG Care Time/CCT Total # of Minutes Spent Total Time Spent with Patient: Total time spent is greater than 50% in coordination of care (as documented) at patient's floor/unit and/or counseling patient: Coding Level of Care Code 92170 SUB INP/OBS CARE 3/50MIN Diagnoses Postoperative back pain G89.18; M54.9 Compression fracture of L5 vertebra, sequela S32.050S Encounter type: sequela UTI (urinary tract infection) N39.0 Hypertension I10 (2) Compression fracture of L5 vertebra Encounter type: sequela Qualified Code(s): S32.050S - Wedge compression fracture of fifth lumbar vertebra, sequela
--- NOTE | 2025-03-06 08:25 | Orthopedic Progress Note ---
Date of Service March 06, 2025 Assessment & Plan (1) Compression fracture of L5 vertebra: Plan: At this time we will continue physical therapy. Monitor SADI output. She is requesting tramadol for pain control. Admission and Anticipated Discharge Date Admission Date: February 25, 2025 Subjective Patient's back pain is controlled. She states her left leg symptoms have improved. She is struggling with right sciatica now. Only was able to ambulate in the room yesterday. Physical Exam Physical Exam: Patient is currently in the chair at the bedside. She is eating. Neurologically intact. Results & Data Vital Signs (Past 12 Hours) Vital Signs Temp Pulse Resp BP Pulse Ox O2 Del Method 03/05/25 23:18 37.2 C 91 H 18 128/68 98 Room Air 03/05/25 23:01 Room Air Queries Orthopedic Spine Vertebral Fracture Secondary to Osteoporosis: Yes (1) Compression fracture of L5 vertebra Encounter type: sequela Qualified Code(s): S32.050S - Wedge compression fracture of fifth lumbar vertebra, sequela
[2025-03-06 08:39] VITALS: TEMP 98.2
[2025-03-06 08:45] LABS: Hematocrit (blood only) 27.7 % (37.0-47.0); Hemoglobin 8.9 g/dl (12.0-16.0); Immature Granulocytes # (auto) 0.08 K/uL (0.01-0.20); Immature Granulocytes % (auto) 1.5 %; Mean Corpuscular Hemoglobin 30.1 pg (25.0-34.0); Mean Corpuscular Volume 93.6 fL (80.0-100.0); Platelet Count 361 K/uL (130-400); RDW Standard Deviation 44.4 fL (36.4-46.3); Red Blood Count 2.96 M/uL (4.20-5.40); White Blood Count 5.50 K/ul (4.8-10.8)
[2025-03-06 09:06] LABS: Anion Gap 4.0 (3-11); Blood Urea Nitrogen 19.0 mg/dl (6-23); Calcium 8.8 mg/dl (8.6-10.3); Carbon Dioxide 33.0 mmol/L (21-32); Chloride 100.0 mmol/L (98-107); Creatinine Clr Calc Pharmacy 63.2 ml/min; Glucose 98.0 mg/dl (70-99(Fasting)); Potassium 4.4 mmol/L (3.5-5.1); Sodium 137.0 mmol/L (136-145)
[2025-03-06 15:18] VITALS: RESP 18
--- NOTE | 2025-03-06 15:29 | Hospitalist Progress Note ---
Date of Service March 06, 2025 Assessment & Plan (1) Postoperative back pain: (2) Compression fracture of L5 vertebra: (3) UTI (urinary tract infection): (4) Hypertension: Plan This patient is a 74-year-old female who recently underwent lumbar spine surgery with Dr. Mckoy on 02/08/2025. She returned on 02/25 due to left knee/calf pain rating down from left hip as well as urinary incontinence and constipation. Seems to relate to nerve compression; discussed with Ortho/spine who felt that the compression fracture is leading to nerve compression leading to her symptomsthis certainly fits the clinical picture. Discussed with patient; doubtful about a urinary tract infection is causing the incontinence given how severe it is, how much it seems to track with her back pain and leg radicular symptoms, and the fact that it has been going on for quite a while with no other infectious symptoms (no dysuria, no fevers chills sweats, no leukocytosis, etc.). #Intractable back pain | urinary incontinence|S/P removal of posterior instrumentation to L4-L5 and S1 bilaterally, kyphoplasty of L4-L5 and S1 vetebral bodies, decompression wtih medial factectomies and foraminotomies L4- L5, posterior spinal fusion L4-L5, interbody fusion L4-L5 on 03/04/25 -Initially, plan was for L4-L5 decompression and fusion with Dr. Mckoy on 02/27, postponed d/t discovered UTI and need for treatment prior to surgical intervention as she would be high risk for infection/bateremia -DVT PPx, pain control, and fluids per the primary team -patient reveals she does not do well with certain opiates included a noted allergy to morphine (respiratory depression) and Dilaudid (hallucinations), morphine discontinued due to allergy -acetaminophen 650 mg po q8h, changed Louin to Q6H PRN dosing, added Tramadol per surgery team -fentanyl patch (currently at 12mcg/hr) -EBL from surgery on 03/04/25 @ 550ml ##Acute blood loss|anemia -EBL 550ml from lumbar surgery on 03/04/25, SADI drain with 365ml total since surgery on 03/04/25 -on ferrous sulfate Q2D -previous lumbar surgery on 02/08/25 with post op hgb trends in mid 8s -she is without hypotension or tachycardia -no increased output from SADI drain or surgical dressing with assessment -CBC stable -H/H 8.6>8.9 #Left knee pain -Worse when bearing weight -Patient repeatedly reports that his "buckling" and giving out on her when she walks -Left knee x-ray did not reveal acute fractures or osseous abnormalities #UTI -UA with 4+ bacteria on arrival -No leukocytosis; afebrile -Final urine culture from 02/25 grew pansensitive E. coli -completed 7 days of IV ceftriaxone -Caceres catheter removed on 02/28, reinserted 03/04 post operative state #Visual hallucinations (resolved) -none reported #Anxiety -Continue fluoxetine and Seroquel #Hypertension -lisinopril held secondary to surgical status, will resume tomorrow as Cr is at baseline #Hypothyroidism -Continue levothyroxine #Osteopenia -Likely related to the fracture causing current symptoms, outpatient bone health workup and management. #DVT prophylaxis Per orthopedics (currently SCDs) Thank you for allowing us to participate in the care of this patient; please reach out any questions or concerns. We are going to sign off at this time. For any further questions or concerns please reach out. Admission and Anticipated Discharge Date Admission Date: February 25, 2025 Subjective Reports her back pain is tolerable at this time. She has been eating and drinking well. Tramadol added back into pain medication regimen. Most pain in right leg vs. left leg. Working with PT. Review of Systems Review of Systems: All systems reviewed & are unremarkable except as noted in Subjective Physical Exam Physical Exam: GENERAL APPEARAN CE: A&O. Lying com fortably in bed. N AD. SKIN: Normal c olor without rashe s or lesions. Nor mal turgor. HEENT: Head AT/NC. Bucca l mucosa is moist and pink. NECK: No jugular venous di stention. No thyro id enlargement. Th ere is no lymphade nopathy. HEART: RR R without m/g/r CANDIE NGS: Normal inspir atory effort. CTA without w/r/r. ABD OMEN: No guarding or rigidity. Normo active BS in all f our quadrants. Abd omen soft and NT. MSK: No bony gross /deformities throu ghout. ROM intact. Lower back dressi ng C/D/I. Sadi drain without excess bl eeding. EXTREMITI ES: No edema, No p eripheral cyanosis . +4/5 MS in lower ext. +dorsiflexio n/plantar flexion of bilateral feet. Neuro: CN 2-12 g rossly intact. No focal neuro defici ts PSYCHIATRIC: No rmal affect. Eye c ontact is good. Sp eech is normal rat e and content. Res ponses are appropr iate. Results & Data Results & Data Vital Signs (Past 12 Hours) Vital Signs Temp Pulse Pulse Resp BP Pulse Ox O2 Del Method 03/06/25 15:17 36.8 C 89 18 126/69 95 Room Air 03/06/25 08:38 36.8 C 77 20 125/67 96 Room Air Laboratory Results labs reviewed PG Care Time/CCT Total # of Minutes Spent Total Time Spent with Patient: Total time spent is greater than 50% in coordination of care (as documented) at patient's floor/unit and/or counseling patient: Coding Level of Care Code 23554 SUB INP/OBS CARE 3/50MIN Diagnoses Postoperative back pain G89.18; M54.9 Compression fracture of L5 vertebra, sequela S32.050S Encounter type: sequela UTI (urinary tract infection) N39.0 Hypertension I10 (2) Compression fracture of L5 vertebra Encounter type: sequela Qualified Code(s): S32.050S - Wedge compression fracture of fifth lumbar vertebra, sequela
[2025-03-07 08:15] VITALS: BP 134/65; PULSE 91; O2SAT 82
--- NOTE | 2025-03-07 08:36 | Discharge Summary ---
Date of Service March 07, 2025 Admission HPI Per Admitting Provider This is a 74-year-old female well-known to the presents with a decline in status predominantly with left leg pain. MRI was performed demonstrating evidence of an acute compression fracture of L5 worsening stenosis at L4-L5. She is currently requiring narcotic pain medication to manage her symptoms. She has difficulty with standing and walking. Admission Exam (Per Admitting) Constitutional WD/WN, vitals as above Eyes normal visual marie by confrontation ENMT external ear and nose normal, oropharynx normal Neck normal visual inspection Respiratory normal respiratory effort Cardiovascular Extremities: normal capillary refill Gastrointestinal (Abdomen) normal bowel sounds, soft, nontender, no hepatosplenomegaly Musculoskeletal Spine: + pain with thoraco-lumbar ROM Extremities: extremities normal to inspection and strength 5/5 throughout Skin no rashes, warm and dry Neurologic normal touch/pain/proprioception and moves all extremities Psychiatric A+Ox3, euthymic affect Eye Contact: good eye contact Discharge Data Consultations 02/25/25 12:27 ED Decision to Admit Stat 02/25/25 14:54 Consult Internal Medicine Routine Procedures Performed Operation Date: 03/04/25 10:05 Actual Procedures p L4-L5 Decompression and Fusion,(Not Applicable) - Gagan Mckoy DO s L4 and L5 Kyphoplasty(Not Applicable) - Gagan Mckoy DO Hospital Course (1) Compression fracture of L5 vertebra: Rebecca is being discharged to [facility] on postoperative day 3 status post hardware removal, kyphoplasty and fusion L4-S1 including iliac bolts. She has some right leg postoperatively. She overall is doing well. She has had a bowel movement. Discharge Instructions ACTIVITY RECOMMENDATIONS: SELF CARE INSTRUCTIONS AFTER THORACIC/LUMBAR FUSIONS 1. You may walk to your tolerance. It is good exercise for your legs and back. Expect some back and intermittent leg aches and pains. 2. You may perform "counter-top" level activities (make a sandwich, chas with a project, etc.). 3. No bending or lifting of more than 10 pounds or back twisting of any nature (roll like a log when turning in bed). 4. You may ride in a car for 20-30 minutes at a time. No driving until after your first visit with your doctor. 5. Frequent changes of position and restricting sitting to 30 minutes at a time will help limit the amount of back spasms and stiffness you may experience. 6. You may discontinue the use of ambulatory aids (cane, crutches, etc.) once your strength and confidence allow. 7. You may environmental permitting specialist the shower and let water strike your incision when you arrive home at least once daily. Do not take a tub bath, sit in a hot tub or go into a swimming pool until after your first recheck in the office. 8. You may resume previous diet. SPECIAL CARE INSTRUCTIONS: VERY IMPORTANT TO READ AND REVIEW A. Your surgical incision has been closed with a cosmetic suture under the skin that will dissolve in about 6 weeks. In 14 days, you can use a pair of clean scissors and cut the suture that is left outside of the skin at the ends of your incision. 1. The small skin tapes can be removed 7 days after surgery if they have not fallen off by that point. 2. You may keep the wound open to air as much as possible to promote healing after post-op day number 5 unless told otherwise by your doctor. 3. If you think the wound looks like it is becoming infected (redness or worsening drainage) and/or you are experiencing fever, chill or worsening back pain and muscle spasms, contact the office so that we may evaluate you as soon as possible. B. Complications are uncommon, but please contact us if you have any signs or symptoms of: 1. wound infection (fever higher than 102.5 degrees F, redness, separation of wound, drainage, or increasing pain from the incision) 2. blood clots in legs (pain, swelling, redness and warmth in legs) 3. urinary tract infection (fever higher than 102.5 degrees F, burning upon urination or increased frequency of urination) 4. nerve problems (inability to walk on your toes or heels, numbness, loss of bowel or bladder control) 5. any other symptoms that concern you C. Please call the office at if you have any concerns or questions about your operation or recovery. D. No smoking! Smoking drastically decreases the chance of a solid fusion. E. Do not take any anti-inflammatory medications (Indocin, Advil, Motrin, Aspirin, Naprosyn, etc.) as these may inhibit the chance of a solid fusion. Tylenol is okay to take for pain. MANAGING PAIN AFTER SPINAL SURGERY 1. Narcotic medication is intended for short-term use and will be provided for surgical pain. Surgical pain usually lasts for a period of 4-6 weeks. Narcotic medication includes Percocet, Vicodin, Darvocet, Tylenol #3 or Lortab. 2. Longer-term pain is more appropriately treated with non-narcotic medication such as Tylenol ES. 3. Muscle spasm is not appropriately treated with narcotics. Muscle relaxers such as Soma, Flexeril or Skelaxin can be used along with Tylenol ES. 4. Remember that we all live with some "aches and pains". This is not unusual or uncommon after an injury or as we get older. a. Back pain is expected and may include muscle spasms for 4 to 6 weeks after surgery. The pain should gradually improve. If the pain worsens for no apparent reason, please contact the office. b. Intermittent leg pain may also be experienced and should not be concerned about unless it worsens for no apparent reason. If so, please contact the office. 5. We will provide appropriate medication within the normal guidelines of their prescribed use. We will also be very cautious and aware of potential abuse and extended duration of patients' medication needs. a. Pain medications are for your comfort and to assist with sleep and rest so that the tissue can heal. They are not provided in order to return to normal activity and should not be used through the day. To do so or worsening pain at night can result from ongoing tissue damage and development of tolerance to the prescribed medicine. 6. Please allow 2-3 days to process refills. Prescriptions will not be mailed but must be picked up at the office. FOLLOW UP VISIT: Keep your scheduled follow-up appointment. Any questions, please call the office at .
== END 2025-03-07 14:10 | DRG 427 ==
LOC: ED 11:51 → 3N 13:06 → SUATTDRO 13:06 → 3N 15:01

== ENCOUNTER 2025-04-03 08:15 | Inpatient (IN) ==
--- NOTE | 2025-04-01 14:54 | PAT Medication Instructions ---
Medication Instructions Date of Service April 01, 2025 Home Medications Medication Instructions Recorded bupropion HCl 300 mg 24 hr tablet, 300 mg PO QAM #90 tabs 06/14/24 extended release lisinopril 20 mg tablet 20 mg PO QAM #90 tabs 11/13/24 hydrocodone 10 mg-acetaminophen 1 tab PO Q6H PRN pain #20 tabs 03/28/25 325 mg tablet tramadol 50 mg tablet 50 mg PO Q6H PRN pain, moderate 03/28/25 #20 tabs Medication List: powxpwspibtj-hxjmwalc-rgiumw tablet (Multivitamin 50 Plus tablet) 1 tab PO HS bupropion HCl 300 mg 24 hr tablet, extended release 300 mg PO QAM acetaminophen 650 mg tablet,extended release (Tylenol Arthritis Pain) q8h PRN pain lisinopril 20 mg tablet 20 mg PO QAM alendronate 70 mg tablet (Fosamax) 70 mg PO WK fluoxetine 40 mg capsule 40 mg PO QAM levothyroxine 125 mcg tablet 125 mcg PO QAM quetiapine 50 mg tablet 50 mg PO HS ferrous sulfate 325 mg (65 mg iron) tablet 325 mg PO .COMPLEX gabapentin 800 mg tablet 1,200 mg PO Q8H baclofen 10 mg tablet 20 mg PO QID hydrocodone 10 mg-acetaminophen 325 mg tablet 1 tab PO Q6H PRN pain tramadol 50 mg tablet 50 mg PO Q6H PRN pain, moderate polyethylene glycol 3350 17 gram oral powder packet 17 g PO DAILY MEDICATION INSTRUCTIONS: Continue as directed alendronate 70 mg tablet (Fosamax) 70 mg PO WK (do not take AM of surgery) DO NOT take the morning of surgery lisinopril 20 mg tablet 20 mg PO QAM ferrous sulfate 325 mg (65 mg iron) tablet 325 mg PO .COMPLEX polyethylene glycol 3350 17 gram oral powder packet 17 g PO DAILY Take morning of surgery With a small sip of water, OTHERWISE NOTHING TO EAT OR DRINK AFTER MIDNIGHT: fluoxetine 40 mg capsule 40 mg PO QAM levothyroxine 125 mcg tablet 125 mcg PO QAM bupropion HCl 300 mg 24 hr tablet, extended release 300 mg PO QAM gabapentin 800 mg tablet 1,200 mg PO Q8H acetaminophen 650 mg tablet,extended release (Tylenol Arthritis Pain) q8h PRN pain baclofen 10 mg tablet 20 mg PO QID hydrocodone 10 mg-acetaminophen 325 mg tablet 1 tab PO Q6H PRN pain tramadol 50 mg tablet 50 mg PO Q6H PRN pain, moderate Take evening before surgery quetiapine 50 mg tablet 50 mg PO HS ahyszxlkvjbu-gfopuotz-fhyxrl tablet (Multivitamin 50 Plus tablet) 1 tab PO HS gabapentin 800 mg tablet 1,200 mg PO Q8H acetaminophen 650 mg tablet,extended release (Tylenol Arthritis Pain) q8h PRN pain baclofen 10 mg tablet 20 mg PO QID hydrocodone 10 mg-acetaminophen 325 mg tablet 1 tab PO Q6H PRN pain tramadol 50 mg tablet 50 mg PO Q6H PRN pain, moderate Other Notes If you have any questions please call us at [phone] or [phone] or [phone] or [phone]
--- NOTE | 2025-04-01 15:37 | Anesthesiology Consultation ---
Date of Service April 01, 2025 Assessment & Plan (1) Encounter for pre-operative examination: Chart Review Chart Review: Acceptable Risk for Surgery and Patient NOT seen in Pre Admission Testing -Infectious Disease screening: Per PAT nursing assessment on 04/01/25. Currently residing at [facility]. No Covid in facility. No known infectious disease contacts in past 10 days or current infectious disease symptoms. No recent travel outside the country. [place] Covid test ordered for DOS PCP office visit 03/28/25= "... Hospital discharge follow up... continues to be in 8 out of 10 pain... Admission to [facility].. intractable back pain... Acute compression fracture... decompression and extending the fusion to L4 and kyphoplasty L5... Discharged to [facility]... Now at [facility] until next back surgery (scheduled 04/03/25)... " L4-L5 Decompression/fusion/ L5 Kyphoplasty 03/04/25= Done under GA with Grade 2 view with Glidescope #3. ETT #7.0. L5-S1 Decompression and fusion 02/08/25= No view with MAC #3. Convert to G lidescope #3. Grade 1 view. Easy atraumatic intubation with G.S. History Surgery Operation Date: 04/03/25 09:35 Proposed Procedures p L5-S1 Exploration, Possible Right L5-S1 Revision Foraminotomy - Gagan Mckoy, Height/Weight Height: 5 ft 5 in Weight: 72.575 kg Allergies Allergy/AdvReac Type Severity Reaction Status Date / Time codeine Allergy Severe Fainting Verified 04/01/25 14:23 morphine Allergy Severe Respiratory Verified 04/01/25 14:23 depression animal dander Allergy Intermediate Respiratory Verified 04/01/25 14:23 issues, congestion house dust mite Allergy Intermediate Respiratory Verified 04/01/25 14:23 issues, congestion meperidine Allergy Intermediate Vomiting Verified 04/01/25 14:23 pineapple Allergy Intermediate *Raw Verified 04/01/25 14:23 pineapple*- solomon lips/fingers hydromorphone AdvReac Intermediate Hallucinati Verified 04/01/25 14:23 ons lactose AdvReac Unknown severe Verified 04/01/25 14:23 lactose intolerance Medications Home Medications Medication Instructions Recorded Confirmed Last Taken [id number] 1 tab PO HS 09/04/01/25 02/10/25 tablet (Multivitamin 50 Plus tablet) bupropion HCl 300 mg 24 hr tablet, 300 mg PO QAM #90 tabs 06/14/24 04/01/25 02/11/25 extended release acetaminophen 650 mg 650 mg PO Q8H PRN Pain 07/17/24 04/01/25 02/10/25 tablet,extended release (Tylenol Arthritis Pain) lisinopril 20 mg tablet 20 mg PO QAM #90 tabs 11/13/24 04/01/25 02/11/25 alendronate 70 mg tablet (Fosamax) 70 mg PO WK 01/10/25 04/01/25 02/06/25 10:00 fluoxetine 40 mg capsule 40 mg PO QAM 01/10/25 04/01/25 02/11/25 levothyroxine 125 mcg tablet 125 mcg PO QAM 01/10/25 04/01/25 02/11/25 quetiapine 50 mg tablet 50 mg PO HS 01/10/25 04/01/25 02/10/25 ferrous sulfate 325 mg (65 mg 325 mg PO .COMPLEX 02/21/25 04/01/25 Unknown iron) tablet gabapentin 800 mg tablet 1,200 mg PO Q8H 02/21/25 04/01/25 Unknown baclofen 10 mg tablet 20 mg PO QID 03/27/25 04/01/25 Unknown hydrocodone 10 mg-acetaminophen 1 tab PO Q6H PRN pain #10 tabs 04/01/25 Unknown 325 mg tablet polyethylene glycol 3350 17 gram 17 g PO DAILY 04/01/25 04/01/25 Unknown oral powder packet tramadol 50 mg tablet 50 mg PO Q6H PRN pain, moderate 04/01/25 Unknown #10 tabs Past Medical History Medical History Abdominal adhesions Chronic, 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 Followed with [facility] [place], stable No longer needs to f/u - only prn per patient Allergic rhinitis Anemia Anxiety Chronic back pain Inhibits long distance ambulation and has pain standing Chronic depression Contact dermatitis Occasional flares Degenerative disc disease History of recent hospitalization [facility] 02/25-03/07/25; presented with LBP/LLE pain; L4-5 decompression/fusion and L4-5 kyphoplasty on 03/04/25; issues with pain mgmt postoperatively; pt in SNF until upcoming back surgery History of thyroid cancer (1985) s/p thyroidectomy Hx SBO Multiple, most recent treated at [facility] (05/2023), no surgical intervention needed Hypertension Hypothyroidism Lactose intolerance Lumbar stenosis Lymphedema B/L feet/ankles Mild sleep apnea CPAP (does not use machine) Osteoarthritis Osteopenia Psoriasis Renal cyst Monitoring Rupture of small intestine Hx 2009- ruptured SB (due adhesions per patient) with ileostomy then reversed Trigeminal neuralgia of right side of face Upper right (V1-2 right side) Follows with neuro- per 03/2024 office visit - [place] aggravated due to insomnia- recommended to continue current meds and follow up with PCP Urine incontinence Stress incontinence and urgency Past Family History Family History Grandfather Family hx of colon cancer MATERNAL Family/Other Family hx of colon cancer MATERNAL COUSIN Other No family history of adverse response to anesthesia Denies family history of Ovarian cancer Prostate cancer Myocardial infarction Breast cancer Past Surgical History Surgical History H/O ileostomy 2009 (for 4 months with reversal) H/O left breast biopsy Benign History of anesthesia reaction Difficulty waking up (per chart review, pt had no issues other than pain control s/p 03/04/25 lumbar surgery [facility]) History of appendectomy History of bilateral tubal ligation History of bladder surgery Bladder tack History of carpal tunnel release R/L History of cataract surgery (2017) R/L History of colonoscopy History of dilatation and curettage X3 History of endometrial ablation History of lumbar fusion L4-5 decompression/fusion, L5 kyphoplasty 03/04/25: Glidescope#3, ETT#7.0, Gr View 2 History of parathyroidectomy History of reversal of ileostomy (2009) History of thyroidectomy, total 1985--[place] had lymph nodes removed History of toe surgery History of tooth extraction [place] teeth extraction History of total abdominal hysterectomy and bilateral salpingo-oophorectomy Hx of cystoscopy with injection of urethral bulking agent S/P epidural steroid injection S/P small bowel resection 2010 after rupture of small intestine S/P thyroid biopsy 1985, malignant Social History Smoking Status: Unknown if ever smoked Do You Dip or Chew Tobacco: No substance use type: does not use Lab Results Anesthesia Preop Results Results Anesthesia Widget: WBC 4.34 K/ul (4.8-10.8) L 03/28/25 Hgb 11.3 g/dl (12.0-16.0) L 03/28/25 Hct 34.5 % (37.0-47.0) L 03/28/25 Plt 461 K/uL (130-400) H 03/28/25 Na 137 mmol/L (136-145) 03/28/25 K 3.9 mmol/L (3.5-5.1) 03/28/25 Cl 101 mmol/L (98-107) 03/28/25 CO2 28 mmol/L (21-32) 03/28/25 BUN 21 mg/dl (6-23) 03/28/25 Creat 0.99 mg/dl (0.6-1.2) 03/28/25 Glucose Level 106 mg/dl (70-99(Fasting)) H 03/28/25 PT 10.9 Seconds (9.0-12.0) 03/28/25 INR 1.0 (0.9-1.1) 03/28/25 TSH 18.607 uIu/ml (0.300-4.500) H 03/28/25 Free T4 1.15 ng/dl (0.61-1.60) 03/28/25 Urine Color Yellow 02/25/25 Urine Appearance Cloudy (Clear) A 02/25/25 Urine pH 6.5 (4.5-7.5) 02/25/25 Urine Specific [place] 1.017 (1.000-1.030) 02/25/25 Urine Protein Negative (Negative) 02/25/25 Urine Glucose (UA) Negative (Negative) 02/25/25 Urine Ketones Negative (Negative) 02/25/25 Urine Blood 1+ (Negative) H 02/25/25 Urine Nitrite Positive (Negative) A 02/25/25 Urine Bilirubin Negative (Negative) 02/25/25 Urine Urobilinogen Negative (Negative) 02/25/25 Urine Leukocyte Esterase 3+ (Negative) H 02/25/25 Urine WBC (Auto) >50 /hpf (0-5) H 02/25/25 Urine RBC (Auto) 0-2 /hpf (0-2) 02/25/25 Urine Hyaline Casts (Auto) 0-2 /lpf (0-2) 02/25/25 Urine Epithelial Cells (Auto) 0-2 /hpf (0-2) 02/25/25 Urine Bacteria (Auto) 4+ (None Seen) H 02/25/25 Blood Type B Negative 02/27/25 Antibody Screen NEGATIVE 02/27/25 Testing Laboratory Results Elevated TSH- Free T4 WNL 02/25/25= URINE CULTURE: E coli >100,000 CFU/ml (urine culture done during [facility] admission- treated with abx) Electrocardiogram Date: 01/17/25 Findings: + NSR @ (78bpm) Normal EKG per cardio Chest X-Ray Date: 04/27/24 No acute abnormality. Granulomatous changes consistent with remote infection.
[2025-04-03] MEDS ORDERED: ROCURONIUM BROMIDE 10 MG/ML 5 ML VIAL IV ONE (08:33)
[2025-04-03] MEDS ORDERED: LIDOCAINE 2% 2 ML VIAL/AMP(20MG/ML) INFIL ONE (08:33)
[2025-04-03] MEDS ORDERED: PROPOFOL IV EMULSION 10 MG/ML 20 ML VIAL IV ONE (08:33)
[2025-04-03] MEDS ORDERED: DEXAMETHASONE SOD INJ 4 MG/ML VIAL ONE ×2 (08:36)
[2025-04-03] MEDS ORDERED: ONDANSETRON INJ 2 MG/ML 2 ML VIAL ONE (08:37)
[2025-04-03] MEDS: LR 15ML/HR IV SCH (09:10)
[2025-04-03] MEDS: GABAPENTIN 300 MG CAP PO SCH (09:10)
[2025-04-03] MEDS: LR 60ML/HR IV SCH (09:12)
[2025-04-03] MEDS: CeleBREX 200 MG CAP PO SCH (09:19)
[2025-04-03] MEDS ORDERED: ATROPINE SULFATE 0.1 MG/ML 10ML SYR IV PRN (09:23)
[2025-04-03] MEDS ORDERED: ONDANSETRON INJ 2 MG/ML 2 ML VIAL IV PRN ×2 (09:23→15:25)
--- NOTE | 2025-04-03 09:36 | History & Physical Report ---
Date of Service April 03, 2025 Assessment & Plan (1) Lumbosacral spondylosis with radiculopathy: Plan: L5-S1 exploration possible revision foraminotomies L5-S1 on the right History of Present Illness Chief Complaint: Right leg pain Primary Care Provider: Graeme Guevara, DO This is a 74-year-old female who presents with chronic persistent right leg pain consistent with radiculopathy and is here for surgical escalation. Allergies Allergy/AdvReac Type Severity Reaction Status Date / Time codeine Allergy Severe Fainting Verified 04/03/25 08:40 morphine Allergy Severe Respiratory Verified 04/03/25 08:40 depression animal dander Allergy Intermediate Respiratory Verified 04/03/25 08:40 issues, congestion house dust mite Allergy Intermediate Respiratory Verified 04/03/25 08:40 issues, congestion meperidine Allergy Intermediate Vomiting Verified 04/03/25 08:40 pineapple Allergy Intermediate *Raw Verified 04/03/25 08:40 pineapple*- solomon lips/fingers hydromorphone AdvReac Intermediate Hallucinati Verified 04/03/25 08:40 ons lactose AdvReac Unknown severe Verified 04/03/25 08:40 lactose intolerance Home Medications Medication Instructions Recorded Confirmed Type [id number] 1 tab PO HS 02/16/18 04/03/25 History tablet (Multivitamin 50 Plus tablet) bupropion HCl 300 mg 24 hr tablet, 300 mg PO QAM #90 tabs 06/14/24 04/03/25 Rx extended release acetaminophen 650 mg 650 mg PO Q8H PRN Pain 07/17/24 04/03/25 History tablet,extended release (Tylenol Arthritis Pain) lisinopril 20 mg tablet 20 mg PO QAM #90 tabs 11/13/24 04/03/25 Rx alendronate 70 mg tablet (Fosamax) 70 mg PO WK 01/10/25 04/03/25 History fluoxetine 40 mg capsule 40 mg PO QAM 01/10/25 04/03/25 History levothyroxine 125 mcg tablet 125 mcg PO QAM 01/10/25 04/03/25 History quetiapine 50 mg tablet 50 mg PO HS 01/10/25 04/03/25 History ferrous sulfate 325 mg (65 mg 325 mg PO .COMPLEX 02/21/25 04/03/25 History iron) tablet gabapentin 800 mg tablet 1,200 mg PO Q8H 02/21/25 04/03/25 History baclofen 10 mg tablet 20 mg PO QID 03/27/25 04/03/25 History hydrocodone 10 mg-acetaminophen 1 tab PO Q6H PRN pain #10 tabs 04/01/25 04/03/25 Rx 325 mg tablet polyethylene glycol 3350 17 gram 17 g PO DAILY 04/01/25 04/03/25 History oral powder packet tramadol 50 mg tablet 50 mg PO Q6H PRN pain, moderate 04/01/25 04/03/25 Rx #10 tabs fentanyl 25 mcg/hr transdermal 1 patch transdermal Q72H 04/03/25 04/03/25 History patch Past Med/Surg History Problem List Encounter for pre-operative examination Compression fracture of L5 vertebra (Acute ~02/25/25) Postoperative back pain (Acute) Closed compression fracture of L5 vertebra (Acute 02/25/25) Mild vertebral body compression fracture at L5. 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 [place] [facility] [place] No longer needs to f/u - only prn per patient Allergic rhinitis Anemia Anxiety Chronic back pain Inhibits long distance ambulation and has pain standing Chronic depression Contact dermatitis Occasional flares Degenerative disc disease History of recent hospitalization [facility] 02/25-03/07/25; presented with LBP/LLE pain; L4-5 decompression/fusion and L4-5 kyphoplasty on 03/04/25; issues with pain mgmt postoperatively; pt in SNF until upcoming back surgery History of thyroid cancer (1985) s/p thyroidectomy Hx SBO Multiple, most recent treated at [facility] (05/2023), no surgical intervention needed Hypertension Hypothyroidism Lactose intolerance Lumbar stenosis Lymphedema B/L feet/ankles Mild sleep apnea CPAP (does not use machine) Osteoarthritis Osteopenia Psoriasis Renal cyst Monitoring Rupture of small intestine Hx 2009- ruptured SB (due adhesions per patient) with ileostomy then reversed Trigeminal neuralgia of right side of face Upper right (V1-2 right side) Follows with neuro- per 03/2024 office visit - [place] aggravated due to insomnia- recommended to continue current meds and follow up with PCP Urine incontinence Stress incontinence and urgency Surgical History H/O ileostomy 2009 (for 4 months with reversal) H/O left breast biopsy Benign History of anesthesia reaction Difficulty waking up (per chart review, pt had no issues other than pain control s/p 03/04/25 lumbar surgery [facility]) History of appendectomy History of bilateral tubal ligation History of bladder surgery Bladder tack History of carpal tunnel release R/L History of cataract surgery (2017) R/L History of colonoscopy History of dilatation and curettage X3 History of endometrial ablation History of lumbar fusion L4-5 decompression/fusion, L5 kyphoplasty 03/04/25: Glidescope#3, ETT#7.0, Gr View 2 History of parathyroidectomy History of reversal of ileostomy (2009) History of thyroidectomy, total 1985--[place] had lymph nodes removed History of toe surgery History of tooth extraction [place] teeth extraction History of total abdominal hysterectomy and bilateral salpingo-oophorectomy Hx of cystoscopy with injection of urethral bulking agent S/P epidural steroid injection S/P small bowel resection 2009 after rupture of small intestine S/P thyroid biopsy 1985, malignant Family History Grandfather Family hx of colon cancer MATERNAL Family/Other Family hx of colon cancer MATERNAL COUSIN Other No family history of adverse response to anesthesia Denies family history of Ovarian cancer Prostate cancer Myocardial infarction Breast cancer Social History Smoking Status: Unknown if ever smoked Second Hand Exposure: No; Do You Dip or Chew Tobacco: No; Preferred Language: Belarusian Communication Ability: unk Visual Impairment: Limited Hearing Ability: Normal Laboratory Sampler Required: No Beliefs That Will Affect Care: None marital status: Current Living Situation: Senior Living Current Living Situation Comment: [facility] Resident current occupational status: employed current occupation: 2 shifts/week at [employer] How many Children do You have: 2 Feels Safe at Home: Yes Childhood Exposure to Second-Hand Smoke: Yes Diet: regular caffeine: No during the past year weight has: remained stable Dental Care, Regularly: Yes Physical Activity Frequency: 3-4 Times per Week Seatbelt Use: always Sunscreen Use: No Assistive Devices: Wheelchair Physical Exam Physical Exam: Patient is alert and oriented Heart regular rhythm Lungs clear Results & Data Results & Data Vital Signs (Past 12 Hours) Vital Signs Temp Pulse Resp BP Pulse Ox O2 Del Method 04/03/25 08:46 36.8 C 85 18 134/75 97 Room Air
[2025-04-03] MEDS ORDERED: ePHEDrine sulfate 50 MG/5 ML SYR ONE (10:31)
[2025-04-03] MEDS: BUPIVACAINE/EPINEPHRINE 0.25% 1:200,000 30 ML VIAL ONE (10:31)
[2025-04-03] MEDS ORDERED: PHENYLEPHRINE 100MCG/ML 5ML SYR ONE ×2 (10:31→10:44)
[2025-04-03] MEDS: ceFAZolin 330 MG/ML 1 GM VIAL ONE (10:32)
[2025-04-03] MEDS ORDERED: SUGAMMADEX SODIUM 200 MG/2 ML VIAL IV ONE (10:57)
[2025-04-03] MEDS: FLOSEAL HEMOSTATIC MATRIX 10ML TOP ONE (10:59)
--- NOTE | 2025-04-03 11:09 | Operative Report ---
Post Operative Report Pre & Post Diagnosis Operation Date: 04/03/25 09:35 Pre-Op Diagnosis: Lumbosacral Spondylosis with Radiculopathy Post-Op Diagnosis: Lumbosacral Spondylosis with Radiculopathy I identified the patient and participated in the time-out.: Yes Procedure Operation Date: 04/03/25 09:35 Actual Procedures Revision decompression with foraminotomies L4-L5 L5-S1 on the right Surgeon Gagan Mckoy, DO Brazer Helper Induction Irina Charles Estimated Blood Loss 50 Findings Consistent with Post-Op Diagnosis Specimens None Indications This is a 74-year-old female that presents with chronic persistent lumbar radiculopathy. She is here for revision decompression. Description of Procedure Patient was met with identified and form was obtained. Patient was then taken to the operative suite underwent a patient placed in a prone position on the Inocente table atop the Anshu frame. All bony prominences well-padded eyes inspected to to ensure no external pressure placed upon them. This point the lumbar spine was prepped and draped in sterile fashion. Sharp dissection with the assistance of Bovie cautery from down to and exposing the instrumentation L4-L5 S1 bilaterally. And then performed a revision laminotomy foraminotomies L4 and L5 foramina removing any appreciable bony and soft tissue compressing the roots. I explored the hardware which was very stable and intact. The incision was then copiously irrigated. 15 round SADI drain inserted. Incision was then closed with 1 Vicryl the fascia 2-0 Vicryl subcutaneously and 4 Monocryl for final skin closure. Steri-Strips sterile dressing placed. Patient waken taken to PACU in stable condition. Please note Irina Charles was present out the entire procedure by the patient positioning complex portion of the surgery and final skin closure. I attest to the content of the Intraoperative Record and any orders documented therein. Any exceptions are noted below.
--- NOTE | 2025-04-03 11:37 | Fluoroscopy Report ---
FL lumbar spine 2-3V CLINICAL HISTORY: L5-S1 EXPLORATION...?? COMPARISON STUDY: None FLUOROSCOPY TIME: 2 seconds FLUOROSCOPY IMAGES: 1 EXPOSURE DOSE: 1.6 mGy FINDINGS: Fluoroscopy was provided for lower lumbar surgery. IMPRESSION: Intraoperative fluoroscopy. ACT 112: Negative or not required by law. Electronically signed by: Milo Purcell M.D. 04/03/2025 11:36 AM
[2025-04-03] MEDS: HYDROmorphone INJ 0.5 MG/0.5 ML SYR IV PRN (12:30)
[2025-04-03] MEDS: HYDROmorphone INJ 0.5 MG/0.5 ML SYR ONE (12:31)
--- NOTE | 2025-04-03 13:17 | Anesthesiology Progress Note ---
Date of Service April 03, 2025 Anesthesia Post Procedure Vital Signs Vital Signs: Temp Pulse Resp BP Pulse Ox O2 Del Method O2 Flow Rate 04/03/25 13:10 87 16 131/72 96 Room Air 04/03/25 13:00 87 12 127/72 92 Room Air 04/03/25 12:50 86 14 143/70 H 92 Room Air 04/03/25 12:40 88 16 132/77 98 Room Air 04/03/25 12:30 85 12 143/81 H 98 Room Air 04/03/25 12:20 86 20 144/82 H 99 Room Air 04/03/25 12:10 88 16 134/58 L 99 Room Air 04/03/25 12:00 89 14 130/66 99 Room Air 04/03/25 11:50 85 14 127/69 98 Room Air 04/03/25 11:40 87 14 121/75 99 Room Air 04/03/25 11:30 90 18 138/63 100 Oxymask 5 04/03/25 11:23 36.2 C L 92 H 20 139/72 100 Oxymask 10 04/03/25 08:46 36.8 C 85 18 134/75 97 Room Air Pain Intensity Right Leg: Pain Intensity: 8 Transfer of Care Handoff Completed per policy Notes Mental Status: alert / awake / arousable Patient Amnestic to Procedure: Yes Nausea / Vomiting: adequately controlled Pain: adequately controlled Airway Patency, RR, SpO2: stable & adequate BP & HR: stable & adequate Hydration State: stable & adequate Anesthetic Complications: no major complications apparent
[2025-04-03] MEDS: ACETAMINOPHEN 1000 MG/100 ML IV IV ONE (13:55)
[2025-04-03] MEDS ORDERED: diphenhydrAMINE Capsule 25 MG CAP PO PRN (15:25)
[2025-04-03] MEDS ORDERED: FAMOTIDINE 20 MG TAB PO PRN (15:25)
[2025-04-03] MEDS ORDERED: ACETAMINOPHEN 1,000 MG/100 ML VIAL IV PRN (15:25)
[2025-04-03] MEDS ORDERED: ALUMINUM/MAGNESIUM SUSP 30 ML UDC PO PRN (15:25)
[2025-04-03] MEDS ORDERED: SOD PHOSPHATE/SOD BIPHOSPHATE ENEMA 132 ML BTL PR PRN (15:25)
[2025-04-03] MEDS ORDERED: MAGNESIUM HYDROXIDE SUSP 30 ML UDC PO PRN (15:25)
[2025-04-03] MEDS ORDERED: NALOXONE HCL 0.4 MG/1 ML VIAL/CARP IV PRN (15:25)
[2025-04-03] MEDS ORDERED: LORazepam 0.5 MG TAB PO PRN (15:25)
[2025-04-03] MEDS ORDERED: ACETAMINOPHEN 500 MG TAB PO PRN (15:25)
[2025-04-03] MEDS ORDERED: DO NOT ADMINISTER PNEUMOCOCCAL VACCINE PRN (15:25)
[2025-04-03] MEDS ORDERED: METOCLOPRAMIDE HCL INJ 5 MG/ML 2 ML VIAL IV PRN (15:25)
[2025-04-03] MEDS ORDERED: DO NOT ADMINISTER FLU VACCINE PRN (15:25)
[2025-04-03] MEDS ORDERED: LORazepam Inj 0.5 MG in SYRINGE 0.25 ML IV PRN (15:25)
[2025-04-03] MEDS: ACETAMINOPHEN 1,000 MG/100 ML VIAL IV STA (16:35)
[2025-04-03] MEDS: FERROUS SULFATE 325 MG TAB PO SCH (16:51)
[2025-04-03] MEDS: BACLOFEN 20 MG TAB PO SCH (16:51)
[2025-04-03] MEDS: GABAPENTIN 600 MG TAB PO SCH (16:52)
[2025-04-03] MEDS ORDERED: Nursing to Pharmacy Communication SCH (17:00)
--- NOTE | 2025-04-03 18:18 | Hospitalist Consultation ---
Date of Consultation April 03, 2025 Assessment & Plan (1) Lumbosacral spondylosis with radiculopathy: (2) Hypertension: (3) Anxiety: Plan Rebecca is a 74F with a PMHx of anxiety, HTN, hypothyroid, and osteopenia. Hospital medicine consulted for medical management. #Lumbar radiculopathy - Rebecca had a decompression and fusion with Dr. Mckoy on 02/08. Presented on 02/25 with concerns for worsening back pain and urinary incontinence found to be from nerve compression and on 03/04 she had removal of instrumentation and decompression and fusion of L4-L5 on 03/04. She was then discharged to [facility] and further discharged to [facility] until her next back surgery. 04/03 scheduled L5-S1 exploration possible revision foraminotomies of right L5- S1 Pain control / dvt proh / abx / dispo per primary team EBL 50 - monitor AM labs #HTN hold lisinopril pending AM labs #Mental Health Continue Wellbutrin, fluoxetine and seroquel Thank you for allowing us to participate in the care of this patient, please reach out with any questions or concerns. Hospital medicine will continue to follow. Supervising Physician Co-Signing Physician Notes I personally saw and examined the patient. I independently reviewed the labs, EKG, imaging, problem list, medication list, past medical history and family history. I verified all gómez points and agree with Oriana Pickard PA-C with the following exceptions and/or additions: History of Present Illness Reason for Consultation: medical management Requesting Physician: Dr. Mckoy Attending Physician: Gagan Mckoy, DO History of Present Illness Rebecca is a 74F with a PMHx of anxiety, HTN, hypothyroid, and osteopenia who presented to the hospital for scheduled surgery with Dr. Mckoy. Seen lying in bed post operatively, frustrated with how long she had to be in PACU. Overall doing okay. Pain is at a 6 right now, but feels like her pain that was radiating down her leg has improved. Has eaten dinner and just asked for the bed dasilva. No CPAP or supplemental oxygen at night. Allergies Allergy/AdvReac Type Severity Reaction Status Date / Time codeine Allergy Severe Fainting Verified 04/03/25 08:40 morphine Allergy Severe Respiratory Verified 04/03/25 08:40 depression animal dander Allergy Intermediate Respiratory Verified 04/03/25 08:40 issues, congestion house dust mite Allergy Intermediate Respiratory Verified 04/03/25 08:40 issues, congestion meperidine Allergy Intermediate Vomiting Verified 04/03/25 08:40 pineapple Allergy Intermediate *Raw Verified 04/03/25 08:40 pineapple*- solomon lips/fingers hydromorphone AdvReac Intermediate Hallucinati Verified 04/03/25 08:40 ons lactose AdvReac Unknown severe Verified 04/03/25 08:40 lactose intolerance Home Medications Medication Instructions Recorded Confirmed Type zpujbtzaincm-ywuwlyzl-agklce 1 tab PO HS 02/16/18 04/03/25 History tablet (Multivitamin 50 Plus tablet) bupropion HCl 300 mg 24 hr tablet, 300 mg PO QAM #90 tabs 06/14/24 04/03/25 Rx extended release acetaminophen 650 mg 650 mg PO Q8H PRN Pain 07/17/24 04/03/25 History tablet,extended release (Tylenol Arthritis Pain) lisinopril 20 mg tablet 20 mg PO QAM #90 tabs 11/13/24 04/03/25 Rx alendronate 70 mg tablet (Fosamax) 70 mg PO WK 01/10/25 04/03/25 History fluoxetine 40 mg capsule 40 mg PO QAM 01/10/25 04/03/25 History levothyroxine 125 mcg tablet 125 mcg PO QAM 01/10/25 04/03/25 History quetiapine 50 mg tablet 50 mg PO HS 01/10/25 04/03/25 History ferrous sulfate 325 mg (65 mg 325 mg PO .COMPLEX 02/21/25 04/03/25 History iron) tablet gabapentin 800 mg tablet 1,200 mg PO Q8H 02/21/25 04/03/25 History baclofen 10 mg tablet 20 mg PO QID 03/27/25 04/03/25 History hydrocodone 10 mg-acetaminophen 1 tab PO Q6H PRN pain #10 tabs 04/01/25 04/03/25 Rx 325 mg tablet polyethylene glycol 3350 17 gram 17 g PO DAILY 04/01/25 04/03/25 History oral powder packet tramadol 50 mg tablet 50 mg PO Q6H PRN pain, moderate 04/01/25 04/03/25 Rx #10 tabs fentanyl 25 mcg/hr transdermal 1 patch transdermal Q72H 04/03/25 04/03/25 History patch fentanyl 25 mcg/hr transdermal 1 patch transdermal Q72H #5 ea 04/06/25 Rx patch hydrocodone 10 mg-acetaminophen 1 tab PO Q6H PRN pain #30 tabs 04/06/25 Rx 325 mg tablet Patient History Medical History Abdominal adhesions Chronic, 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 Followed with [facility], stable No longer needs to f/u - only prn per patient Allergic rhinitis Anemia Anxiety Chronic back pain Inhibits long distance ambulation and has pain standing Chronic depression Contact dermatitis Occasional flares Degenerative disc disease History of recent hospitalization [facility] 02/25-03/07/25; presented with LBP/LLE pain; L4-5 decompression/fusion and L4-5 kyphoplasty on 03/04/25; issues with pain mgmt postoperatively; pt in SNF until upcoming back surgery History of thyroid cancer (1985) s/p thyroidectomy Hx SBO Multiple, most recent treated at [facility] (05/2023), no surgical intervention needed Hypertension Hypothyroidism Lactose intolerance Lumbar stenosis Lymphedema B/L feet/ankles Mild sleep apnea CPAP (does not use machine) Osteoarthritis Osteopenia Psoriasis Renal cyst Monitoring Rupture of small intestine Hx 2009- ruptured SB (due adhesions per patient) with ileostomy then reversed Trigeminal neuralgia of right side of face Upper right (V1-2 right side) Follows with neuro- per 03/2024 office visit - TN aggravated due to insomnia- recommended to continue current meds and follow up with PCP Urine incontinence Stress incontinence and urgency Surgical History H/O ileostomy 2009 (for 4 months with reversal) H/O left breast biopsy Benign History of anesthesia reaction Difficulty waking up (per chart review, pt had no issues other than pain control s/p 03/04/25 lumbar surgery [facility]) History of appendectomy History of bilateral tubal ligation History of bladder surgery Bladder tack History of carpal tunnel release R/L History of cataract surgery (2017) R/L History of colonoscopy History of dilatation and curettage X3 History of endometrial ablation History of lumbar fusion L4-5 decompression/fusion, L5 kyphoplasty 10/13/25: Glidescope#3, ETT#7.0, Gr View 2 History of parathyroidectomy History of reversal of ileostomy (2009) History of thyroidectomy, total 1985--[place] had lymph nodes removed History of toe surgery History of tooth extraction [place] teeth extraction History of total abdominal hysterectomy and bilateral salpingo-oophorectomy Hx of cystoscopy with injection of urethral bulking agent S/P epidural steroid injection S/P small bowel resection 2009 after rupture of small intestine S/P thyroid biopsy 1986, malignant Family History Grandfather Family hx of colon cancer MATERNAL Family/Other Family hx of colon cancer MATERNAL COUSIN Other No family history of adverse response to anesthesia Denies family history of Ovarian cancer Prostate cancer Myocardial infarction Breast cancer Social History Smoking Status: Unknown if ever smoked Second Hand Exposure: No; Do You Dip or Chew Tobacco: No; Preferred Language: Greenlandic Communication Ability: Effective Visual Impairment: Limited Hearing Ability: Normal [place] Decorator Required: No Beliefs That Will Affect Care: None marital status: Current Living Situation: [facility] Current Living Situation Comment: [facility] Resident current occupational status: employed current occupation: 2 shifts/week at [employer] [facility] How many Children do You have: 2 Feels Safe at Home: Yes Childhood Exposure to Second-Hand Smoke: Yes Diet: regular caffeine: No during the past year weight has: remained stable Dental Care, Regularly: Yes Physical Activity Frequency: 3-4 Times per Week Seatbelt Use: always Sunscreen Use: No Assistive Devices: Walker Review of Systems Review of Systems: All systems reviewed & are unremarkable except as noted in Subjective Physical Exam Physical Exam: General: NAD, VS as above Resp: normal respiratory effort, lungs clear to auscultation CV: RRR, no murmur, Abd: normal bowel sounds, non tender, soft Extremities: Moves all extremities, no edema Back: dressing c/d/i Neuro: A&O x3, Results & Data Results & Data Vital Signs (Past 12 Hours) Vital Signs Temp Pulse Pulse Resp BP BP Pulse Ox 04/03/25 17:23 98.1 F 86 18 122/66 96 04/03/25 16:13 98.1 F 88 16 147/74 H 95 04/03/25 15:30 87 12 137/76 98 04/03/25 15:00 88 18 126/65 97 04/03/25 14:30 85 12 119/71 98 04/03/25 14:15 87 13 135/72 99 04/03/25 14:00 86 12 129/76 100 04/03/25 13:45 87 12 125/71 96 04/03/25 13:30 98.1 F 92 H 14 130/75 95 04/03/25 13:20 89 16 113/66 96 04/03/25 13:10 87 16 131/72 96 04/03/25 13:00 87 12 127/72 92 04/03/25 12:50 86 14 143/70 H 92 04/03/25 12:40 88 16 132/77 98 04/03/25 12:30 85 12 143/81 H 98 04/03/25 12:20 86 20 144/82 H 99 04/03/25 12:10 88 16 134/58 L 99 04/03/25 12:00 89 14 130/66 99 04/03/25 11:50 85 14 127/69 98 04/03/25 11:40 87 14 121/75 99 04/03/25 11:30 90 18 138/63 100 04/03/25 11:23 97.2 F L 92 H 20 139/72 100 04/03/25 08:46 98.2 F 85 18 134/75 97 O2 Del Method O2 Flow Rate 04/03/25 17:23 Room Air 04/03/25 16:13 Room Air 04/03/25 15:30 Nasal Cannula 2 04/03/25 15:00 Nasal Cannula 2 04/03/25 14:30 Nasal Cannula 2 04/03/25 14:15 Nasal Cannula 2 04/03/25 14:00 Nasal Cannula 2 04/03/25 13:45 Room Air 04/03/25 13:30 Room Air 04/03/25 13:20 Room Air 04/03/25 13:10 Room Air 04/03/25 13:00 Room Air 04/03/25 12:50 Room Air 04/03/25 12:40 Room Air 04/03/25 12:30 Room Air 04/03/25 12:20 Room Air 04/03/25 12:10 Room Air 04/03/25 12:00 Room Air 04/03/25 11:50 Room Air 04/03/25 11:40 Room Air 04/03/25 11:30 Oxymask 5 04/03/25 11:23 Oxymask 10 04/03/25 08:46 Room Air PG Care Time/CCT Total # of Minutes Spent Total Time Spent with Patient: Total time spent is greater than 50% in coordination of care (as documented) at patient's floor/unit and/or counseling patient: Coding Level of Care Code 33475 IN/OBS CONSULT LVL 3,45M Diagnoses Lumbosacral spondylosis with radiculopathy M47.27 Hypertension I10 Anxiety F41.9
[2025-04-03] MEDS: DOCUSATE SODIUM/SENNA 50/8.6MG TAB PO SCH (21:06)
[2025-04-03] MEDS: CEROVITE ADV FORMULA TAB PO SCH (21:06)
[2025-04-04] MEDS: LEVOTHYROXINE SODIUM 125 MCG TABLET PO SCH (05:42)
[2025-04-04] MEDS: POLYETHYLENE (MIRALAX) 17 GM PACK PO SCH ×2 (05:42→08:11)
[2025-04-04 07:59] LABS: Hematocrit (blood only) 27.5 % (37.0-47.0); Hemoglobin 8.9 g/dL (12.0-16.0); Immature Granulocytes # (auto) 0.02 K/uL (0.01-0.20); Immature Granulocytes % (auto) 0.4 %; Mean Corpuscular Hemoglobin 29.8 pg (25.0-34.0); Mean Corpuscular Volume 92.0 fL (80.0-100.0); Platelet Count 251 K/uL (130-400); RDW Standard Deviation 48.0 fL (36.4-46.3); Red Blood Count 2.99 M/uL (4.20-5.40); White Blood Count 5.04 K/ul (4.8-10.8)
[2025-04-04 08:28] LABS: Anion Gap 5.0 (3-11); Blood Urea Nitrogen 16.0 mg/dl (6-23); Calcium 8.6 mg/dl (8.6-10.3); Carbon Dioxide 30.0 mmol/L (21-32); Chloride 102.0 mmol/L (98-107); Creatinine Clr Calc Pharmacy 51.4 ml/min; Glucose 90.0 mg/dl (70-99(Fasting)); Potassium 3.8 mmol/L (3.5-5.1); Sodium 137.0 mmol/L (136-145)
--- NOTE | 2025-04-04 10:17 | Orthopedic Progress Note ---
Date of Service April 04, 2025 Assessment & Plan (1) Lumbosacral spondylosis with radiculopathy: Plan: Rebecca is postoperative day 1 status post revision decompression/foraminotomies at L5-S1 on the right. Pain is improving. Where start physical therapy today. She would most likely benefit from a stay at [facility] upon discharge from the hospital. DVT prophylaxis is in the form teds and SCDs. Continue with pain control. Maintain SADI drain. Anticipate discharge to rehab in the next couple of days Admission and Anticipated Discharge Date Admission Date: April 03, 2025 Subjective Rebecca is postoperative day 1 status post revision decompression/foraminotomies of L5-S1 on the right. She states has not been out of bed yet but currently does not have any right lower extremity pain. Still has some paresthesias and numbness affecting the right lower extremity. No other complaints. Review of Systems Review of Systems: All systems reviewed & are unremarkable except as noted in HPI & below Physical Exam Physical Exam: She is laying in bed. She is seen in conjunction with Dr. Mckoy. Strength in the right lower extremity is improving Lumbar dressing is clean dry and intact with functioning SADI drain Results & Data Vital Signs (Past 12 Hours) Vital Signs Temp Pulse Resp BP BP Pulse Ox O2 Del Method 04/04/25 07:22 37.1 C 88 14 104/55 L 96 Room Air 04/04/25 03:00 36.9 C 83 18 126/62 96 Room Air 04/03/25 23:17 36.8 C 92 H 16 101/50 L 95 Room Air
--- NOTE | 2025-04-04 12:20 | Hospitalist Progress Note ---
Date of Service April 04, 2025 Assessment & Plan (1) Lumbosacral spondylosis with radiculopathy: (2) Hypertension: (3) Anxiety: Plan Rebecca is a 74F with a PMHx of anxiety, HTN, hypothyroid, and osteopenia. Hospital medicine consulted for medical management. #Lumbar radiculopathy - Rebecca had a decompression and fusion with Dr. Mckoy on 02/08. Presented on 02/25 with concerns for worsening back pain and urinary incontinence found to be from nerve compression and on 03/04 she had removal of instrumentation and decompression and fusion of L4-L5 on 03/04. She was then discharged to [facility] and further discharged to [facility] until her next back surgery. 04/03 scheduled L5-S1 exploration possible revision foraminotomies of right L5- S1 Pain control / dvt proh / abx / dispo per primary team EBL 50 - Hgb 8.9 which is decreased from 11.3 a week ago but similar to her other post op values. Acute blood loss anemia vs dilutional. #HTN OKay to resume lisinopril 04/05 #Mental Health Continue Wellbutrin, fluoxetine and seroquel Thank you for allowing us to participate in the care of this patient, please reach out with any questions or concerns. Hospital medicine will sign off. Admission and Anticipated Discharge Date Admission Date: April 03, 2025 Supervising Physician Co-Signing Physician Notes I did not see or examine the patient. I verified all gómez points and agree with Oriana Pickard PA-C with the following exceptions and/or additions: None Subjective patient seen sitting up in the chair after working with PT reporting pin and needle sensation in her back that is worse after working with PT no BM since tuesday - reports that she takes miralax everyday and recently has required something else like prune juice to help her go Physical Exam Physical Exam: General: NAD, vitals as above, sitting up in the chair Pulm: breathing unlabored CV: well perfused extremities: moves all extremities Results & Data Results & Data Vital Signs (Past 12 Hours) Vital Signs Temp Pulse Resp BP BP Pulse Ox O2 Del Method 04/04/25 07:22 98.8 F 88 14 104/55 L 96 Room Air 04/04/25 03:00 98.4 F 83 18 126/62 96 Room Air Laboratory Results cbc and chemistry reviewed PG Care Time/CCT Total # of Minutes Spent Total Time Spent with Patient: Total time spent is greater than 50% in coordination of care (as documented) at patient's floor/unit and/or counseling patient: Coding Level of Care Code 83637 SUB INP/OBS CARE 2/35MIN Diagnoses Lumbosacral spondylosis with radiculopathy M47.27 Hypertension I10 Anxiety F41.9
[2025-04-04] MEDS ORDERED: Nursing to Pharmacy Communication SCH (22:00)
--- NOTE | 2025-04-05 10:08 | Orthopedic Progress Note ---
Date of Service April 05, 2025 Assessment & Plan (1) Lumbosacral spondylosis with radiculopathy: Plan: At this time we will continue physical therapy monitor SADI output anticipate discharge tomorrow to rehab if bed available. Admission and Anticipated Discharge Date Admission Date: April 03, 2025 Subjective Back pain controlled leg symptoms improving Physical Exam Physical Exam: Patient is in bed. He is comfortable. Still demonstrating foot drop on the right but there is some appreciable motion of the toes. Results & Data Vital Signs (Past 12 Hours) Vital Signs Temp Pulse Resp BP Pulse Ox O2 Del Method 04/05/25 07:43 36.7 C 105 H 18 129/66 98 Room Air 04/04/25 22:39 36.5 C 79 18 124/68 93 Room Air
[2025-04-06] MEDS: ONDANSETRON 4 MG OD TAB PO PRN (02:25)
[2025-04-06] MEDS: PROMETHAZINE 12.5 MG/50.5 ML BAG IV PRN (04:32)
[2025-04-06 07:50] VITALS: RESP 18
--- NOTE | 2025-04-06 09:34 | Discharge Summary ---
Date of Service April 06, 2025 Admission HPI Per Admitting Provider This is a 74-year-old female who presents with chronic persistent right leg pain consistent with radiculopathy and is here for surgical escalation. Principal Diagnosis Lumbar spondylosis with radiculopathy Discharge Data Allergies Allergy/AdvReac Type Severity Reaction Status Date / Time codeine Allergy Severe Fainting Verified 04/03/25 08:40 morphine Allergy Severe Respiratory Verified 04/03/25 08:40 depression animal dander Allergy Intermediate Respiratory Verified 04/03/25 08:40 issues, congestion house dust mite Allergy Intermediate Respiratory Verified 04/03/25 08:40 issues, congestion meperidine Allergy Intermediate Vomiting Verified 04/03/25 08:40 pineapple Allergy Intermediate *Raw Verified 04/03/25 08:40 pineapple*- solomon lips/fingers hydromorphone AdvReac Intermediate Hallucinati Verified 04/03/25 08:40 ons lactose AdvReac Unknown severe Verified 04/03/25 08:40 lactose intolerance Consultations 04/03/25 15:25 Consult Hospitalist Routine Procedures Performed Operation Date: 04/03/25 09:35 Actual Procedures p L5-S1 Exploration, Right L5-S1 Revision Foraminotomy(Not Applicable) - Gagan Mckoy DO Ordered Studies 04/03/25 09:35 FL spine 1V any level Routine Hospital Course (1) Lumbosacral spondylosis with radiculopathy: Patient underwent revision decompression tolerated as well as taken orthopedic for postoperatively. Postoperatively she progressed appropriately tolerating physical therapy and was cleared for discharge to rehab. Discharge orders instructions from the chart for further review. Total Time Total Time Spent Total Time Spent (In Minutes): 20 minutes Discharge Plan Discharge Items Patient Disposition: Transfer Inpatient Rehab Fac Reason For Visit: Lumbosacral Spondylosis with Radiculopathy Discharge Diagnosis: Lumbar spondylosis with radiculopathy Activity: As commented below Non-emergency contact: Primary Care Provider Call non-emergency contact if: you have any medication questions Follow-up/Referrals: Graeme Guevara DO [Primary Care Provider] - Diet: Regular Addtl Attending Provider Instructions: ACTIVITY RECOMMENDATIONS: SELF CARE INSTRUCTIONS AFTER THORACIC/LUMBAR FUSIONS 1. You may walk to your tolerance. It is good exercise for your legs and back. Expect some back and intermittent leg aches and pains. 2. You may perform "counter-top" level activities (make a sandwich, chas with a project, etc.). 3. No bending or lifting of more than 10 pounds or back twisting of any nature (roll like a log when turning in bed). 4. You may ride in a car for 20-30 minutes at a time. No driving until after your first visit with your doctor. 5. Frequent changes of position and restricting sitting to 30 minutes at a time will help limit the amount of back spasms and stiffness you may experience. 6. You may discontinue the use of ambulatory aids (cane, crutches, etc.) once your strength and confidence allow. 7. You may embossing toolsetter the shower and let water strike your incision when you arrive home at least once daily. Do not take a tub bath, sit in a hot tub or go into a swimming pool until after your first recheck in the office. 8. You may resume previous diet. SPECIAL CARE INSTRUCTIONS: VERY IMPORTANT TO READ AND REVIEW A. Your surgical incision has been closed with a cosmetic suture under the skin that will dissolve in about 6 weeks. In 14 days, you can use a pair of clean scissors and cut the suture that is left outside of the skin at the ends of your incision. 1. The small skin tapes can be removed 7 days after surgery if they have not fallen off by that point. 2. You may keep the wound open to air as much as possible to promote healing after post-op day number 5 unless told otherwise by your doctor. 3. If you think the wound looks like it is becoming infected (redness or worsening drainage) and/or you are experiencing fever, chill or worsening back pain and muscle spasms, contact the office so that we may evaluate you as soon as possible. B. Complications are uncommon, but please contact us if you have any signs or symptoms of: 1. wound infection (fever higher than 102.5 degrees F, redness, separation of wound, drainage, or increasing pain from the incision) 2. blood clots in legs (pain, swelling, redness and warmth in legs) 3. urinary tract infection (fever higher than 102.5 degrees F, burning upon urination or increased frequency of urination) 4. nerve problems (inability to walk on your toes or heels, numbness, loss of bowel or bladder control) 5. any other symptoms that concern you C. Please call the office at if you have any concerns or questions about your operation or recovery. D. No smoking! Smoking drastically decreases the chance of a solid fusion. E. Do not take any anti-inflammatory medications (Indocin, Advil, Motrin, Aspirin, Naprosyn, etc.) as these may inhibit the chance of a solid fusion. Tylenol is okay to take for pain. MANAGING PAIN AFTER SPINAL SURGERY 1. Narcotic medication is intended for short-term use and will be provided for surgical pain. Surgical pain usually lasts for a period of 4-6 weeks. Narcotic medication includes Percocet, Vicodin, Darvocet, Tylenol #3 or Lortab. 2. Longer-term pain is more appropriately treated with non-narcotic medication such as Tylenol ES. 3. Muscle spasm is not appropriately treated with narcotics. Muscle relaxers such as Soma, Flexeril or Skelaxin can be used along with Tylenol ES. 4. Remember that we all live with some "aches and pains". This is not unusual or uncommon after an injury or as we get older. a. Back pain is expected and may include muscle spasms for 4 to 6 weeks after surgery. The pain should gradually improve. If the pain worsens for no apparent reason, please contact the office. b. Intermittent leg pain may also be experienced and should not be concerned about unless it worsens for no apparent reason. If so, please contact the office. 5. We will provide appropriate medication within the normal guidelines of their prescribed use. We will also be very cautious and aware of potential abuse and extended duration of patients' medication needs. a. Pain medications are for your comfort and to assist with sleep and rest so that the tissue can heal. They are not provided in order to return to normal activity and should not be used through the day. To do so or worsening pain at night can result from ongoing tissue damage and development of tolerance to the prescribed medicine. 6. Please allow 2-3 days to process refills. Prescriptions will not be mailed but must be picked up at the office. FOLLOW UP VISIT: Keep your scheduled follow-up appointment. Any questions, please call the office at . Pending Studies at Discharge: No Stand-Alone Forms: My [facility] Skilled Items Patient informed of condition?: Yes DNR: No Discharge Level of Care: Acute rehab Communicable Disease: No Discharge Prognosis: Improving Lines: None Urinary Catheter: No Medications and DC Order Prescriptions: New fentanyl 25 mcg/hr Patch 72 Hour 1 patch transdermal Q72H Qty: 5 0RF hydrocodone-acetaminophen 10-325 mg Tablet 1 tab PO Q6H PRN (Reason: pain) Qty: 30 0RF Continued acetaminophen [Tylenol Arthritis Pain] 650 mg tablet extended release 650 mg PO Q8H PRN (Reason: Pain) lisinopril 20 mg tablet 20 mg PO QAM Qty: 90 3RF ferrous sulfate 325 mg (65 mg iron) tablet 325 mg PO .COMPLEX Patient Comments: confirmed w/ pt and on [facility] DC summary 02/21/25 Rx Instructions: 325 mg orally every other day; gabapentin 800 mg tablet 1,200 mg PO Q8H Patient Comments: confirmed w/ pt and on [facility] DC summary 02/21/25 hydrocodone-acetaminophen 10-325 mg tablet 1 tab PO Q6H PRN (Reason: pain) Qty: 10 0RF tramadol 50 mg tablet 50 mg PO Q6H PRN (Reason: pain, moderate) Qty: 10 0RF bupropion HCl 300 mg tablet extended release 24 hr 300 mg PO QAM Qty: 90 3RF baclofen 10 mg tablet 20 mg PO QID Multivitamin 50 Plus Tablet 1 tab PO HS polyethylene glycol 3350 17 gram Powder In Packet 17 g PO DAILY Rx Instructions: give every 24hours as needed for constipation fentanyl 25 mcg/hr Patch 72 Hour 1 patch TRANSDERMAL Q72H fluoxetine 40 mg capsule 40 mg PO QAM alendronate [Fosamax] 70 mg tablet 70 mg PO WK Rx Instructions: W[facility] levothyroxine 125 mcg tablet 125 mcg PO QAM quetiapine 50 mg tablet 50 mg PO HS Discharge Orders: Discharge Order (Routine); Ordered 04/06/25 Ordered By: Gagan Mckoy Admission Data Admit Date/Time: 04/03/25 11:12 Attending Provider: Gagan Mckoy Admit Provider: Gagan Mckoy Primary Care Provider: Graeme Guevara Other Providers: Venkat Ibarra; [facility]
[2025-04-06 11:55] VITALS: BP 132/77; PULSE 94; TEMP 98.1; O2SAT 97
[2025-04-06] MEDS ORDERED: POLYETHYLENE (MIRALAX) 17 GM PACK PO PRN (11:56)
== END 2025-04-06 14:30 | DRG 517 ==
LOC: ASU 08:15 → PACUINP 11:12 → 3W 16:04